=== PATIENT | female | born 1935 | race Caucasian/White ===

== ENCOUNTER → 2016-09-26 | Outpatient (CLI) | payer OTHER ==
[2016-06-06 17:00] VITALS: BP 180/80
--- NOTE | 2016-09-27 10:14 | MRI ---
STUDY: MRI OF THE BRAIN WITHOUT GADOLINIUM HISTORY: TIA and cerebral infarction without residual deficits. Headaches, dizziness, blurred visio n. Technique: Multiplanar multi-sequence MRI of the brain was obtained utilizing standard departmental protocol. Sagittal and axial T1, axial T2, FLAIR, diffusion (DWI/ADC) images through the brain were performed. Comparison: Brain MRI from June 06, 2016. Findings: The sulci, cisterns and ventricles are prominent consistent with diffuse volume loss. There are conf luent and scattered foci of T2 prolongation in the periventricular and subcortical white matter of b oth hemispheres. This is a nonspecific finding which likely represents microangiopathic change in a patient of this age. There appear to be old lacunar infarcts in the left insula, left periventricular taylor radiata and left basal ganglia. There is no evidence of acute territorial infarction, hemorrhage, mass, mass eff ect, or midline shift. There are no abnormal intra-axial or extra-axial fluid collections. The left frontal and parietal nadja holes are again noted. The major intracranial vascular flow voids appear intact. The vertebral arteries are codominent. The re is bilateral aphakia. IMPRESSION: 1. No evidence of acute intracranial abnormality. 2. Old lacunar infarcts in the left basal ganglia, insula, and periventricular taylor radiata. 3. Nonspecific white matter change and volume loss. Reported By:
== END | disposition home or self-care (01) ==
LOC: RAD 15:26
PROVIDERS: ATTEND Psychiatry & Neurology Neurology
DX: Z86.73 Personal history of transient ischemic attack (TIA), and cerebral infarction without residual deficits (principal); R42 Dizziness and giddiness
CPT/HCPCS: 70551

== ENCOUNTER → 2017-07-15 | Outpatient (CLI) | payer OTHER ==
[2016-06-06 17:00] VITALS: BP 180/80
--- NOTE | 2017-07-16 10:31 | MG ---
HISTORY: SCREENING Comparison: October 02, 2009 FINDINGS: Bilateral CC and MLO projections of the right and left breast were obtained. Scattered fibroglandula r tissue is seen to be present without significant interval change. No suspicious architectural dist ortion, mass or clustered microcalcifications can be observed to suggest malignancy. No skin thicken ing or nipple retraction is appreciated. No pathological lymphadenopathy can be identified. Benign- appearing calcifications are noted within the right and left breast. An electronic device projects ov er the lower medial left breast. IMPRESSION: NO RADIOGRAPHIC EVIDENCE OF MALIGNANCY. ACR CATEGORY 2 - benign findings. FOLLOW-UP EXAM 1 YEAR. Diagnostic CAD was utilized and reviewed. * 0 (ZERO) - ASSESSMENT INCOMPLETE; ADDITIONAL IMAGING IS NEEDED. * 1/ (ONE) - NEGATIVE. * 2/II (TWO) - BENIGN FINDINGS. * 3/III (THREE) - PROBABLY BENIGN FINDING; SHORT INTERVAL FOLLOW-UP SUGGESTED. * 4/IV (FOUR) - SUSPICIOUS ABNORMALITY; BIOPSY SHOULD BE CONSIDERED. * 5/V - HIGHLY SUSPICIOUS OF MALIGNANCY; BIOPSY SHOULD BE PERFORMED. A NEGATIVE X-RAY REPORT SHOULD NOT DELAY BIOPSY IF A DOMINANT OR CLINICALLY SUSPICIOUS MASS IS PRESENT; 4 TO 8 PERCENT OF CANCERS ARE NOT IDENTIFIED BY X-RAY. A NEGA TIVE REPORT MAY REINFORCE THE CLINICAL IMPRESSION. ADENOSIS AND DENSE BREASTS MAY OBSCURE AN UNDERLY ING NEOPLASM. Reported By:
== END ==
LOC: RAD 11:02
PROVIDERS: ATTEND Internal Medicine
DX: Z12.31 Encounter for screening mammogram for malignant neoplasm of breast (principal)
CPT/HCPCS: 77067

== ENCOUNTER 2018-03-02 21:13 | Inpatient (IN) ==
[2018-03-02] MEDS ORDERED: ZOFRAN INJ 4 MG VIAL IVP ONE (21:25)
[2018-03-02] MEDS ORDERED: DEMEROL INJ IVP ONE (21:26)
[2018-03-02] MEDS ORDERED: ZOFRAN INJ 4 MG VIAL ONE (21:28)
[2018-03-02] MEDS ORDERED: DEMEROL INJ ONE (21:28)
[2018-03-02 21:42] VITALS: BMI 24.3
--- NOTE | 2018-03-02 22:05 | CT ---
CT HEAD WITHOUT CONTRAST CLINICAL HISTORY: 82-year-old female status post fall with stability issues. COMPARISON: CT head 01/05/2018. TECHNIQUE: Multiple, non-contrasted axial CT images were obtained from the skull base to the cranial vertex. Coronal and sagittal reformats were performed. FINDINGS: There are no abnormal intra- or extra-axial fluid collections, midline shift, or mass effect. Osborne-white differentiation is normal. 'Empty sella'. 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 Global cortical involutional changes are present that are advanced for the patient's stated age. The ventricular system is enlarged but commensurate with the degree of sulcal prominence. Chronic lacunar infarctions bilateral basal ganglia and thalami. Chronic punctate infarctions within the bilateral davie. Chronic infarction with small volume encephalomalacia left taylor radiata with component of wallerian degeneration. Severe periventricular and supraventricular white matter hypodensity is present that is nonspecific in appearance, but most likely to represent microvascular ischemic changes. Atherosclerotic vascular calcification is present within the carotid siphons and distal vertebral arteries. The imaged paranasal sinuses, mastoid air cells, and tympanic spaces are clear. Bilateral lens implants. IMPRESSION: 1. No definite evidence of an acute intracranial process. If clinical concern persists for acute stroke and it would alter patient management, consider MRI/MRA brain. 2. Chronic lacunar infarctions bilateral basal ganglia and thalami with chronic infarction left taylor radiata and component of wallerian degeneration. Chronic punctate infarctions bilateral davie. 3. Severe microvascular white matter ischemic changes, with associated volume loss. Reported By:
--- NOTE | 2018-03-02 22:29 | RAD ---
HISTORY: 82-year-old female status post fall with right ankle pain. Study: Three views right ankle. Comparison: Right ankle radiographs 03/29/2014 Findings: Talar dome is intact. Minimally displaced lateral malleolar fracture with subtle cortical irregularity of the medial malleolus suggesting nondisplaced medial malleolar fracture with significant soft tissue edema about the ankle. The ankle mortise remains well aligned. No significant soft tissue swelling or injury can be seen. The visualized portions of the talus and calcaneus are unremarkable. Vascular calcifications are present. IMPRESSION: Nondisplaced lateral malleolar fracture with suspected medial malleolar fracture without dislocation. Significant surrounding soft tissue edema as expected. Reported By:
[2018-03-02 23:04] LABS: BASOPHILS % (AUTO) 0.5 % (0.2-1.0); EOSINOPHILS # (AUTO) 0.3 x10^3/uL (0.0-0.2); EOSINOPHILS % (AUTO) 3.3 % (0.9-2.9); HEMATOCRIT 33.5 % (36.0-47.0); HEMOGLOBIN 11.3 g/dL (12.0-16.0); LYMPHOCYTES # (AUTO) 2.2 X10^3/uL (1.3-2.9); LYMPHOCYTES % (AUTO) 26.5 % (21.0-51.0); MEAN CORPUSCULAR HEMOGLOBIN 31.2 pg (27.0-34.0); MEAN CORPUSCULAR HGB CONC 33.8 g/dL (33.0-35.0); MEAN CORPUSCULAR VOLUME 92.4 fL (80.0-100.0); MEAN PLATELET VOLUME 8.9 fL (7.4-11.0); MONOCYTES # (AUTO) 0.6 x10^3/uL (0.3-0.8); MONOCYTES % (AUTO) 7.3 % (0.0-13.0); NEUTROPHILS # (AUTO) 5.3 x10^3/uL (2.2-4.8); NEUTROPHILS % (AUTO) 62.4 % (42.0-75.0); PLATELET COUNT 176 X10^3/uL (150.0-450.0); RED BLOOD COUNT 3.63 X10^6/uL (3.5-5.4); RED CELL DISTRIBUTION WIDTH 13.5 % (11.6-16.5); WHITE BLOOD COUNT 8.5 X10^3/uL (3.6-10.0)
[2018-03-02 23:16] LABS: ALANINE AMINOTRANSFERASE 22 Units/L (12-78); ALBUMIN 3.5 g/dL (3.4-5.0); ALKALINE PHOSPHATASE 92 Units/L (46-116); ASPARTATE AMINO TRANSFERASE 18 Units/L (15-37); BLOOD UREA NITROGEN 27 mg/dL (7-18); CALCIUM 8.2 mg/dL (8.5-10.1); CARBON DIOXIDE 28.3 mmol/L (21-32); CHLORIDE 105 mmol/L (98-107); COR NA(FOR HYPERGLY) 144 mmol/L (136-145); CREATININE 1.17 mg/dL (0.55-1.02); SODIUM 143 mmol/L (136-145); TOTAL PROTEIN 7.2 g/dL (6.4-8.2); eGFR NON BLACK RACES 47 (>60)
--- NOTE | 2018-03-02 23:37 | RAD ---
HISTORY: 82-year-old female status post fall Study: Frontal view of the chest. Comparison: Chest radiograph 06/04/2016 Findings: Surgical and support devices are stable. The trachea is midline. The cardiac silhouette is unremarkable with low lung volumes and chronic prominence of the interstitium and perihilar lung markings. The lungs are clear without focal consolidation, effusion or pneumothorax. Soft tissues are unremarkable. Osseous structures are unremarkable. IMPRESSION: 1. No acute cardiopulmonary disease with findings consistent with COPD. Reported By:
--- NOTE | 2018-03-02 23:46 | DR.EXTPAIN ---
HPI Time seen Time Seen by Provider: 03/02/18 21:32 PCP Primary Care Physician: Complaint/Symptoms Chief Complaint:: FALL O/S 1530 TODAY. C/O RIGHT KNEE AND RIGHT ANKLE PAIN. NOTED EDEMA TO RIGHT KNEE, WITH SMALL YELLOW BRUISED BELOW KNEE. NOTED MODERATE AMOUNT OF EDEMA TO RIGHT ANKLE, WITH BRUISING TO RIGHT ANKLE. Source History Provided: Patient, Family Member and EMS Mode of arrival Mode of Arrival: EMS Timing Onset of Chief Complaint: 03/02/18 PMH PMH Past Medical History: Yes Past Medical History: Anemia, Arthritis, Coronary Artery Disease, CVA, Depression, Diabetes, Dyslipidemia, Headaches, Hypertension, Kidney Stones, [place], Renal Disease and Seizures Past Medical History Comment: HX OF SUBDURAL HEMATOMA Past Surgical History: Yes Surgical History: Angioplasty/Stents, CABG/Valve Surgery, Hysterectomy and Ortho Surgery Family History History of Family Medical Conditions: Yes Family Medical History: Diabetes Mellitus, Cancer, [place], Coronary Artery Disease, Heart Failure and Hypertension Social History Does patient currently use any type of tobacco product: No Have you used tobacco products in the last 12 months: No Type of Tobacco Use: None Does any household member use tobacco: No Alcohol Use: None Do you use any recreational Drugs:: No Lives Where: Home infectious screening Have you traveled outside the country in the last 6 months?: No Isolation: Standard PE Vital Signs Vitals: Temperature 97.1 F Pulse Rate [Left] 67 Pulse Rate 110 Respiratory Rate 22 Blood Pressure [Left Arm] 151/67 Blood Pressure [Right Arm] 180/80 Blood Pressure 246/110 O2 Sat by Pulse Oximetry 97 General Limitations: No Limitations and Language Barrier General Appearance: Alert and In No Apparent Distress Head Head Exam: Normal Inspection, Atraumatic and Normocephalic Eyes Eye exam: Normal Appearance, PERRL and EOMI ENT ENT Exam: Normal Exam, Normal Oropharynx and Normal External Ear Exam Neck Neck Exam: Normal Inspection, Full ROM and Trachea Midline Chest Chest Inspection: Normal Inspection and Symmetric Chest Wall Rise Respiratory Respiratory Exam: Normal Lung Sounds Bilat Respiratory Exam: Bilateral: Clear to Auscultation Cardiovascular Cardiovascular Exam: Regular Rate and Normal Rhythm Abdominal Exam Abdominal Exam: Normal Inspection, Normal Bowel Sounds and Soft Extremities Extremities Exam: Normal Inspection and Full ROM Upper Extremities Shoulder Exam: Normal Inspection and Full ROM Arm Exam: Normal Inspection and Full ROM Elbow Exam: Normal Inspection and Full ROM Forearm Exam: Normal Inspection and Full ROM Hand Exam: Normal Inspection and Full ROM Neuromotor Exam: Normal Exam and Wrist Extension Neurosensory Exam: Normal Exam and Radial Nerve Hand Tendon Exam: Flexor Digitorium Profundus (Location) Upper Ext. Vascular Exam: Capillary Refill and Radial Pulse Lower Extremities Hip/Pelvis Exam: Normal Inspection and Full ROM Upper Leg Exam: Normal Inspection and Full ROM Knee Exam: Normal Inspection, Tenderness and Swelling (right knee); negative Ecchymosis Lower Leg Exam: Normal Inspection and Full ROM Ankle Exam: Tenderness and Swelling Neurovascular/Tendon Exam: Normal Capillary Refill Back Back Exam: Normal Inspection and Full ROM Neurological Neurological Exam: Alert, Oriented X3 and CN II-XII Intact Psychiatric Psychiatric Exam: Normal Affect Skin Skin Exam: Warm, Dry, Intact and Normal Color COURSE Treatment Treatment: Demerol 12.5mg IV Consultation Called: 00:30 Consultation Comments: Dr. Lipscomb agreed to admit for pain management. ROR Labs Reviewed Laboratory Results Reviewed?: Yes Result Diagrams: 03/02/18 22:45 03/02/18 22:45 Laboratory: WBC 8.5 X10^3/uL (3.6-10.0) 03/02/18 22:45 RBC 3.63 X10^6/uL (3.5-5.4) 03/02/18 22:45 Hgb 11.3 g/dL (12.0-16.0) L 03/02/18 22:45 Hct 33.5 % (36.0-47.0) L 03/02/18 22:45 MCV 92.4 fL (80.0-100.0) 03/02/18 22:45 MCH 31.2 pg (27.0-34.0) 03/02/18 22:45 MCHC 33.8 g/dL (33.0-35.0) 03/02/18 22:45 RDW 13.5 % (11.6-16.5) 03/02/18 22:45 Plt Count 176 X10^3/uL (150.0-450.0) 03/02/18 22:45 MPV 8.9 fL (7.4-11.0) 03/02/18 22:45 Neut % (Auto) 62.4 % (42.0-75.0) 03/02/18 22:45 Lymph % (Auto) 26.5 % (21.0-51.0) 03/02/18 22:45 [place] % (Auto) 7.3 % (0.0-13.0) 03/02/18 22:45 Eos % (Auto) 3.3 % (0.9-2.9) H 03/02/18 22:45 Baso % (Auto) 0.5 % (0.2-1.0) 03/02/18 22:45 Neut # (Auto) 5.3 x10^3/uL (2.2-4.8) H 03/02/18 22:45 Lymph # (Auto) 2.2 X10^3/uL (1.3-2.9) 03/02/18 22:45 [place] # (Auto) 0.6 x10^3/uL (0.3-0.8) 03/02/18 22:45 Eos # (Auto) 0.3 x10^3/uL (0.0-0.2) H 03/02/18 22:45 Baso # (Auto) 0.0 X10^3/uL (0.0-0.1) 03/02/18 22:45 Absolute Nucleated RBC 0.0 /100WBC 03/02/18 22:45 Sodium 143 mmol/L (136-145) 03/02/18 22:45 Corrected Sodium 144 mmol/L (136-145) 03/02/18 22:45 Potassium 3.6 mmol/L (3.5-5.1) 03/02/18 22:45 Chloride 105 mmol/L (98-107) 03/02/18 22:45 Carbon Dioxide 28.3 mmol/L (21-32) 03/02/18 22:45 BUN 27 mg/dL (7-18) H 03/02/18 22:45 Creatinine 1.17 mg/dL (0.55-1.02) H 03/02/18 22:45 Est GFR (MDRD) Af Amer 57 (>60) L 03/02/18 22:45 Est GFR (MDRD) Non-Af 47 (>60) L 03/02/18 22:45 Glucose 161 mg/dL (65-99) H 03/02/18 22:45 Calcium 8.2 mg/dL (8.5-10.1) L 03/02/18 22:45 Corrected Calcium TNP 03/02/18 22:45 Total Bilirubin 0.20 mg/dL (0.2-1.0) 03/02/18 22:45 AST 18 Units/L (15-37) 03/02/18 22:45 ALT 22 Units/L (12-78) 03/02/18 22:45 Alkaline Phosphatase 92 Units/L (46-116) 03/02/18 22:45 Total Protein 7.2 g/dL (6.4-8.2) 03/02/18 22:45 Albumin 3.5 g/dL (3.4-5.0) 03/02/18 22:45 Globulin 3.7 g/dL (2.5-4.5) 03/02/18 22:45 Albumin/Globulin Ratio 0.9 Ratio (1.1-2.1) L 03/02/18 22:45 Other Results Comments: Chest: No acute cardiopulmonary disease with findings consistent with COPD. Right Knee: Severe diffuse degenerative change without ra diographic evidence of fracture or malalignment with chronic moderate suprapatella joint effusion. Nondisplaced lateral malleolar fracture with suspected medial malleolar fracture without dislocation. Significant surrounding soft tissue edema. XRAY XRAY Interpreted by: Radiologist XRAY Findings: CT Brain:No definite evidence of an acute intracranial process. Procedures Procedure Comments Procedures: Right lower extremity with splint of fractured ankle. ADDITIONAL NOTES Additional Notes Additional Notes: Patient admitted for pain management
--- NOTE | 2018-03-02 23:51 | RAD ---
KNEE RADIOGRAPHS CLINICAL HISTORY: 82-year-old female status post fall. COMPARISON: Right knee radiographs 12/05/2013. FINDINGS: Frontal lateral views of the right knee demonstrate no acute fracture or malalignment. Chronic moderate suprapatellar joint effusion with diffuse tricompartmental degenerative changes. Loss of the joint space bilaterally with tibial plateau sclerosis. The mineralization is normal. There is no aggressive bone lesion or abnormal periosteal reaction. There is no soft tissue calcification or gas. Significant vascular calcifications. IMPRESSION: Severe diffuse degenerative change without radiographic evidence of fracture or malalignment with chronic moderate suprapatellar joint effusion. Reported By:
[2018-03-03] MEDS ORDERED: ZOFRAN INJ 4 MG VIAL IVP PRN (00:43)
[2018-03-03] MEDS: OXYBUTYNIN CHLORIDE ER PO SCH ×2 (01:56→20:46)
[2018-03-03] MEDS: EFFEXOR XR 150 MG CAP PO SCH ×2 (01:56→20:46)
[2018-03-03] MEDS: NS 1000 ML 1,000 ML IV SCH ×3 (01:56→17:05)
[2018-03-03 05:52] LABS: ALANINE AMINOTRANSFERASE 20 Units/L (12-78); ALBUMIN 3.1 g/dL (3.4-5.0); ALKALINE PHOSPHATASE 86 Units/L (46-116); ASPARTATE AMINO TRANSFERASE 20 Units/L (15-37); BLOOD UREA NITROGEN 23 mg/dL (7-18); CALCIUM 7.9 mg/dL (8.5-10.1); CARBON DIOXIDE 24.5 mmol/L (21-32); CHLORIDE 106 mmol/L (98-107); COR CA(FOR HYPOALB) 8.6 mg/dL (8.5-10.1); COR NA(FOR HYPERGLY) 142 mmol/L (136-145); CREATININE 0.98 mg/dL (0.55-1.02); SODIUM 141 mmol/L (136-145); TOTAL PROTEIN 6.6 g/dL (6.4-8.2); eGFR NON BLACK RACES 58 (>60)
[2018-03-03 06:14] LABS: BASOPHILS % (AUTO) 0.6 % (0.2-1.0); EOSINOPHILS # (AUTO) 0.1 x10^3/uL (0.0-0.2); EOSINOPHILS % (AUTO) 1.9 % (0.9-2.9); HEMATOCRIT 30.4 % (36.0-47.0); HEMOGLOBIN 10.5 g/dL (12.0-16.0); LYMPHOCYTES # (AUTO) 2.1 X10^3/uL (1.3-2.9); LYMPHOCYTES % (AUTO) 27.6 % (21.0-51.0); MEAN CORPUSCULAR HEMOGLOBIN 31.9 pg (27.0-34.0); MEAN CORPUSCULAR HGB CONC 34.6 g/dL (33.0-35.0); MEAN CORPUSCULAR VOLUME 92.3 fL (80.0-100.0); MEAN PLATELET VOLUME 9.4 fL (7.4-11.0); MONOCYTES # (AUTO) 0.6 x10^3/uL (0.3-0.8); MONOCYTES % (AUTO) 8.6 % (0.0-13.0); NEUTROPHILS # (AUTO) 4.6 x10^3/uL (2.2-4.8); NEUTROPHILS % (AUTO) 61.3 % (42.0-75.0); PLATELET COUNT 149 X10^3/uL (150.0-450.0); RED CELL DISTRIBUTION WIDTH 13.2 % (11.6-16.5); WHITE BLOOD COUNT 7.6 X10^3/uL (3.6-10.0)
[2018-03-03] MEDS: DEMEROL INJ IVP PRN ×3 (07:56→17:41)
[2018-03-03] MEDS: SYNTHROID 50 mcg TAB PO SCH (08:00)
[2018-03-03] MEDS: HumuLIN R SUBCUT PRN ×2 (14:22→17:42)
[2018-03-03] MEDS: PERCOCET TAB 5/325 MG PO PRN (14:22)
--- NOTE | 2018-03-03 16:17 | DR.H&P ---
H&P - History & Physical for Day of: H&P Date: 03/02/18 - Chief Complaint Chief Complaint: FALL, RT ANKLE PAIN, KNEE PAIN - History of Present Illness History of Present Illness: 82 EF ER ADMISSION AFTER PRESENTING WITH CO FALL WITH KNEE PAIN, RIGHT ANKLE PAIN. PT HAD XRAYS IN ER REVEALING NEW RIGHT ANKLE FRACTURE. PT HAS PMH OF HTN, OA, HX VASCULAR DEMENTIA, GERD, RENAL DISEASE, CAD. PT ADMITTED FOR PAIN CONTROL, ORTHO CONSULT - Past Medical History Past Medical History: [place], Coronary Artery Disease, Hypertension, Dyslipidemia, Diabetes, Renal Disease, Depression, Anemia, CVA, Seizures, Arthritis, Kidney Stones, Headaches Additional Medical History: Paroxysmal Atrial Fibrillation, TIA, Bronchitis, Pancreatitis, Urinary Tract Infections, Muscle Weakness, Back Pain, Previous Blood Transfusion, Skin Cancer Face - Past Surgical History Surgical History: Angioplasty/Stents, CABG/Valve Surgery, Hysterectomy, Ortho Surgery Additional Surgical History: Hernia Repair, Cataract Removal, Left Sided SHEYLA Holes S/P Subdural Hematoma Evacuation (09/29/13), Skin Cancer Removal - Family History Family Medical History: Diabetes Mellitus, Cancer, [place], Coronary Artery Disease, Heart Failure, Hypertension - Social History Does patient currently use any type of tobacco product: No Have you used tobacco products in the last 12 months: No Type of Tobacco Use: None Does any household member use tobacco: No Alcohol Use: None Drug Use: None - Medications Home Medications: atorvastatin [From Lipitor] Allergy (Verified 03/02/18 21:25) codeine Allergy (Verified 03/02/18 21:25) duloxetine [From Cymbalta] Allergy (Verified 03/02/18 21:25) sulfamethoxazole [From Bactrim] Allergy (Verified 03/02/18 21:25) trimethoprim [From Bactrim] Allergy (Verified 03/02/18 21:25) CI PIGMENT BLUE 63 Allergy (Uncoded 03/02/18 21:25) CONTINUE taking the following medications clopidogrel 150 mg PO HS 03/03/18 [History] diazepam 2 mg PO HS 03/03/18 [History] levothyroxine 50 mcg PO DAILY 03/03/18 [History] losartan 100 mg PO HS 03/03/18 [History] - Review of Systems Constitutional: Weakness Eyes: No Symptoms Reported ENT: No Symptoms Reported Respiratory: No Symptoms Reported Cardiovascular: No Symptoms Reported, Edema Gastrointestinal: Nausea Genitourinary: No Symptoms Reported Musculoskeletal: Leg Pain, Foot Pain Skin: Bruising Neurological: Weakness - Physical Exam Vital Signs: Temperature 98.5 F Pulse Rate [Left] 74 Pulse Rate 110 Respiratory Rate 20 Blood Pressure [Left Arm] 199/89 Blood Pressure [Right Arm] 136/63 Blood Pressure 246/110 O2 Sat by Pulse Oximetry 99 Oriented: Person Eyes: Normal Ear: Normal Nose: Normal Throat: Normal Respiratory: RLL Diminished, LLL Diminished Cardiovascular: Edema. negative: Bradycardia Auscultation: Bowel Sounds: Normal Palpation: Normal Tenderness: Normal Skin: Bruising Musculoskeletal: Right, Knee, Leg, Ankle, Foot Psychiatric: Anxiety Affect: Anxious Speech Pattern: Clear, Appropriate - Assessment/Plan (1) Fracture of right ankle Status: Acute Plan: ADMIT, PAIN CONTROL. ORTHO CONSULT, VERIFY HOME MEDICATION. AM LABS, I & OS. FALL PRECAUTIONS, BED REST (2) CAD (coronary artery disease) Status: Acute (3) Hypertension Status: Acute (4) Arthritis Status: Chronic - Allergies Allergies/Adverse Reactions: Allergies Allergy/AdvReac Type Severity Reaction Status Date / Time atorvastatin [From Lipitor] Allergy Verified 03/02/18 21:25 codeine Allergy Verified 03/02/18 21:25 duloxetine [From Cymbalta] Allergy Verified 03/02/18 21:25 sulfamethoxazole Allergy Verified 03/02/18 21:25 [From Bactrim] trimethoprim [From Bactrim] Allergy Verified 03/02/18 21:25 CI PIGMENT BLUE 63 Allergy Uncoded 03/02/18 21:25
--- NOTE | 2018-03-03 20:22 | CT ---
CT OF THE RIGHT ANKLE WITHOUT CONTRAST Clinical indication: Fracture of right ankle Comparison: Radiography 03/02/2018 Procedure: Axial images of the right ankle were obtained. Sagittal coronal reformats were performed. Dose reduction techniques including Automated Exposure Control (AEC) and adjustment of mA and kV were utlized. Findings: Comminuted fracture of the distal fibula with more subtle chip fracture of the anteromedial distal tibia. Talar dome appears to be intact. Heterogeneous calcification can be seen throughout the joint spaces of the ankle suggestive of CPPD. Diffuse joint space loss and osteophytosis. Joint effusion is present. Impression: 1. Medial and lateral malleolar fractures as above with joint effusion. 2. Findings of CPPD and osteoarthritis. Reported By:
[2018-03-03] MEDS: COLACE CAP 100 MG PO SCH (20:44)
[2018-03-03] MEDS: PLAVIX PO SCH (20:46)
[2018-03-03] MEDS: ASPIRIN 81 MG CHEWTAB PO SCH (20:46)
[2018-03-03] MEDS: CORDARONE TAB 200 MG PO SCH (20:46)
[2018-03-03] MEDS: LIPITOR TAB 20 MG PO SCH (20:46)
[2018-03-03] MEDS: COZAAR PO SCH (20:46)
[2018-03-03] MEDS: SNACK - Diabetic Appropriate PO SCH (20:47)
[2018-03-03] MEDS ORDERED: OXYBUTYNIN CHLORIDE 5 MG PO SCH (21:00)
[2018-03-03] MEDS ORDERED: VENLAFAXINE HCL PO SCH (21:00)
[2018-03-04] MEDS: PERCOCET TAB 5/325 MG PO PRN ×3 (01:07→23:08)
[2018-03-04] MEDS: NS 1000 ML 1,000 ML IV SCH ×3 (04:30→17:17)
[2018-03-04 05:19] LABS: BASOPHILS % (AUTO) 0.4 % (0.2-1.0); EOSINOPHILS # (AUTO) 0.1 x10^3/uL (0.0-0.2); EOSINOPHILS % (AUTO) 0.9 % (0.9-2.9); HEMOGLOBIN 10.2 g/dL (12.0-16.0); LYMPHOCYTES # (AUTO) 2.3 X10^3/uL (1.3-2.9); MEAN CORPUSCULAR HEMOGLOBIN 31.1 pg (27.0-34.0); MEAN CORPUSCULAR HGB CONC 33.9 g/dL (33.0-35.0); MEAN CORPUSCULAR VOLUME 91.6 fL (80.0-100.0); MEAN PLATELET VOLUME 9.5 fL (7.4-11.0); MONOCYTES # (AUTO) 1.2 x10^3/uL (0.3-0.8); MONOCYTES % (AUTO) 12.9 % (0.0-13.0); NEUTROPHILS # (AUTO) 5.7 x10^3/uL (2.2-4.8); NEUTROPHILS % (AUTO) 60.8 % (42.0-75.0); PLATELET COUNT 155 X10^3/uL (150.0-450.0); RED BLOOD COUNT 3.28 X10^6/uL (3.5-5.4); RED CELL DISTRIBUTION WIDTH 13.4 % (11.6-16.5); WHITE BLOOD COUNT 9.4 X10^3/uL (3.6-10.0)
[2018-03-04 05:45] LABS: ALANINE AMINOTRANSFERASE 20 Units/L (12-78); ALBUMIN 2.8 g/dL (3.4-5.0); ALKALINE PHOSPHATASE 76 Units/L (46-116); ASPARTATE AMINO TRANSFERASE 18 Units/L (15-37); BLOOD UREA NITROGEN 15 mg/dL (7-18); CALCIUM 7.8 mg/dL (8.5-10.1); CARBON DIOXIDE 26.1 mmol/L (21-32); CHLORIDE 103 mmol/L (98-107); COR CA(FOR HYPOALB) 8.8 mg/dL (8.5-10.1); COR NA(FOR HYPERGLY) 140 mmol/L (136-145); CREATININE 0.85 mg/dL (0.55-1.02); SODIUM 139 mmol/L (136-145); TOTAL PROTEIN 6.4 g/dL (6.4-8.2); eGFR NON BLACK RACES > 60 (>60)
[2018-03-04] MEDS ORDERED: K-DUR TAB 20 MEQ PO PRN (06:03)
[2018-03-04] MEDS ORDERED: POTASSIUM CHLORIDE LIQ 20 MEQ UDC PO PRN (06:03)
[2018-03-04] MEDS ORDERED: KLOR-CON PO PRN (06:03)
[2018-03-04] MEDS ORDERED: MICRO K EXTEN CAP 10 MEQ PO PRN (06:03)
[2018-03-04] MEDS ORDERED: POTASSIUM CHL 60 MEQ/NS 0.45% 500 ML IV PRN (06:03)
[2018-03-04] MEDS ORDERED: POTASSIUM CHL 40 MEQ/NS 0.45% 500 ML IV PRN (06:03)
[2018-03-04] MEDS: SYNTHROID 50 mcg TAB PO SCH (09:17)
[2018-03-04] MEDS: K-RIDER 10 MEQ/NS 100 ML 10 MEQ/100 ML BAG IV PRN ×4 (15:13→19:30)
[2018-03-04] MEDS: MAGNESIUM SULFATE 1 GRAM/100 mL PREMIX 1 GM/100 ML BAG IV PRN ×2 (15:14→17:00)
--- NOTE | 2018-03-04 17:01 | PCM.PROG ---
Progress Note - Progress Note for Day of Date of Exam: 03/03/18 - Subjective Subjective: 82 WF ER ADMISSION ON 03/02 WITH RIGHT ANKLE FRACTURE FOLLOWING A FALL AT HOME. DR PLUMMER CONSULTING. STARTED PO PERCOCET DUE TO UNCONTROLLED PAIN WITH IV NARCOTIC ANALGESIC. PT FAMILY ASKING FOR CONSERVATIVE MEASURES, "WANT TO AVOID ANY SURGERY" CASE MANAGEMENT CONSULT FOR HH WHEN PT IS DISCHARGED - Past Medical Family Social History Past Med/Fam/Surg Hx: No changes since H&P Allergies: Allergies atorvastatin [From Lipitor] Allergy (Verified 03/02/18 21:25) codeine Allergy (Verified 03/02/18 21:25) duloxetine [From Cymbalta] Allergy (Verified 03/02/18 21:25) sulfamethoxazole [From Bactrim] Allergy (Verified 03/02/18 21:25) trimethoprim [From Bactrim] Allergy (Verified 03/02/18 21:25) CI PIGMENT BLUE 63 Allergy (Uncoded 03/02/18 21:25) - Review of Systems ROS: No change since H&P - Vital Signs and I&O's Vital Signs: Temperature 98.2 F Pulse Rate [Left] 71 Pulse Rate 110 Respiratory Rate 18 Blood Pressure [Left Arm] 151/67 Blood Pressure [Right Arm] 198/93 Blood Pressure 246/110 O2 Sat by Pulse Oximetry 98 Intake and Output: Intake & Output 03/02/18 03/03/18 03/04/18 03/05/18 11:59 11:59 11:59 11:59 Intake Total 439 / 439 2223 / 2223 290 / 290 Balance 439 / 439 2223 / 2223 290 / 290 - Physical Exam Oriented: Person Eyes: Normal Ear: Normal Nose: Normal Throat: Normal Respiratory: Diminished Cardiovascular: Edema. negative: Bradycardia Auscultation: Bowel Sounds: Normal Tenderness: Normal Skin: Bruising Musculoskeletal: Right, Knee, Leg, Ankle, Foot Psychiatric: Anxiety Affect: Anxious Speech Pattern: Clear, Appropriate - Laboratory and Diagnostics Result Diagrams: 03/04/18 04:22 03/04/18 04:22 Labs: Laboratory WBC 9.4 X10^3/uL (3.6-10.0) 03/04/18 04:22 RBC 3.28 X10^6/uL (3.5-5.4) L 03/04/18 04:22 Hgb 10.2 g/dL (12.0-16.0) L 03/04/18 04:22 Hct 30.0 % (36.0-47.0) L 03/04/18 04:22 MCV 91.6 fL (80.0-100.0) 03/04/18 04:22 MCH 31.1 pg (27.0-34.0) 03/04/18 04:22 MCHC 33.9 g/dL (33.0-35.0) 03/04/18 04:22 RDW 13.4 % (11.6-16.5) 03/04/18 04:22 Plt Count 155 X10^3/uL (150.0-450.0) 03/04/18 04:22 MPV 9.5 fL (7.4-11.0) 03/04/18 04:22 Neut % (Auto) 60.8 % (42.0-75.0) 03/04/18 04:22 Lymph % (Auto) 25.0 % (21.0-51.0) 03/04/18 04:22 [place] % (Auto) 12.9 % (0.0-13.0) 03/04/18 04:22 Eos % (Auto) 0.9 % (0.9-2.9) 03/04/18 04:22 Baso % (Auto) 0.4 % (0.2-1.0) 03/04/18 04:22 Neut # (Auto) 5.7 x10^3/uL (2.2-4.8) H 03/04/18 04:22 Lymph # (Auto) 2.3 X10^3/uL (1.3-2.9) 03/04/18 04:22 [place] # (Auto) 1.2 x10^3/uL (0.3-0.8) H 03/04/18 04:22 Eos # (Auto) 0.1 x10^3/uL (0.0-0.2) 03/04/18 04:22 Baso # (Auto) 0.0 X10^3/uL (0.0-0.1) 03/04/18 04:22 Absolute Nucleated RBC 0.0 /100WBC 03/04/18 04:22 Sodium 139 mmol/L (136-145) 03/04/18 04:22 Corrected Sodium 140 mmol/L (136-145) 03/04/18 04:22 Potassium 3.3 mmol/L (3.5-5.1) L 03/04/18 04:22 Chloride 103 mmol/L (98-107) 03/04/18 04:22 Carbon Dioxide 26.1 mmol/L (21-32) 03/04/18 04:22 BUN 15 mg/dL (7-18) 03/04/18 04:22 Creatinine 0.85 mg/dL (0.55-1.02) 03/04/18 04:22 Est GFR (MDRD) Af Amer > 60 (>60) 03/04/18 04:22 Est GFR (MDRD) Non-Af > 60 (>60) 03/04/18 04:22 Glucose 148 mg/dL (65-99) H 03/04/18 04:22 POC Glucose (mg/dL) 143 mg/dL (65-99) H 03/04/18 11:40 Calcium 7.8 mg/dL (8.5-10.1) L 03/04/18 04:22 Corrected Calcium 8.8 mg/dL (8.5-10.1) 03/04/18 04:22 Magnesium 1.5 mg/dL (1.7-2.9) L 03/04/18 04:22 Total Bilirubin 0.60 mg/dL (0.2-1.0) 03/04/18 04:22 AST 18 Units/L (15-37) 03/04/18 04:22 ALT 20 Units/L (12-78) 03/04/18 04:22 Alkaline Phosphatase 76 Units/L (46-116) 03/04/18 04:22 Total Protein 6.4 g/dL (6.4-8.2) 03/04/18 04:22 Albumin 2.8 g/dL (3.4-5.0) L 03/04/18 04:22 Globulin 3.6 g/dL (2.5-4.5) 03/04/18 04:22 Albumin/Globulin Ratio 0.8 Ratio (1.1-2.1) L 03/04/18 04:22 - Plan (1) Fracture of right ankle Status: Acute Plan: PAIN CONTROL. ORTHO CONSULT, BP CONTROL. AM LABS, I & OS. FALL PRECAUTI ONS, BED REST (2) CAD (coronary artery disease) Status: Acute (3) Hypertension Status: Acute (4) Arthritis Status: Chronic
--- NOTE | 2018-03-04 17:02 | PCM.PROG ---
Progress Note - Progress Note for Day of Date of Exam: 03/04/18 - Subjective Subjective: 82 WF ER ADMISSION ON 03/02 WITH RIGHT ANKLE FRACTURE FOLLOWING A FALL AT HOME. DR PLUMMER CONSULTING. STARTED PO PERCOCET DUE TO UNCONTROLLED PAIN WITH IV NARCOTIC ANALGESIC, WHICH IS CONTROLLIN PAIN. PT FAMILY ASKING FOR CONSERVATIVE MEASURES, "WANT TO AVOID ANY SURGERY" DR PLUMMER PLACED IN ORTHO BOOT TO RLE AND NO WEIGHT BEARING. CASE MANAGEMENT CONSULT FOR WHEN PT IS DISCHARGED - Past Medical Family Social History Past Med/Fam/Surg Hx: No changes since H&P Allergies: Allergies atorvastatin [From Lipitor] Allergy (Verified 03/02/18 21:25) codeine Allergy (Verified 03/02/18 21:25) duloxetine [From Cymbalta] Allergy (Verified 03/02/18 21:25) sulfamethoxazole [From Bactrim] Allergy (Verified 03/02/18 21:25) trimethoprim [From Bactrim] Allergy (Verified 03/02/18 21:25) CI PIGMENT BLUE 63 Allergy (Uncoded 03/02/18 21:25) - Review of Systems ROS: No change since H&P - Vital Signs and I&O's Vital Signs: Temperature 98.2 F Pulse Rate [Left] 71 Pulse Rate 110 Respiratory Rate 18 Blood Pressure [Left Arm] 151/67 Blood Pressure [Right Arm] 198/93 Blood Pressure 246/110 O2 Sat by Pulse Oximetry 98 Intake and Output: Intake & Output 03/02/18 03/03/18 03/04/18 03/05/18 11:59 11:59 11:59 11:59 Intake Total 439 / 439 2223 / 2223 290 / 290 Balance 439 / 439 2223 / 2223 290 / 290 - Physical Exam Oriented: Person Eyes: Normal Ear: Normal Nose: Normal Throat: Normal Respiratory: Diminished Cardiovascular: Edema. negative: Bradycardia Auscultation: Bowel Sounds: Normal Tenderness: Normal Skin: Bruising Musculoskeletal: Right, Knee, Leg, Ankle, Foot Psychiatric: Anxiety Affect: Anxious Speech Pattern: Clear, Appropriate - Laboratory and Diagnostics Result Diagrams: 03/04/18 04:22 03/04/18 04:22 Labs: Laboratory WBC 9.4 X10^3/uL (3.6-10.0) 03/04/18 04:22 RBC 3.28 X10^6/uL (3.5-5.4) L 03/04/18 04:22 Hgb 10.2 g/dL (12.0-16.0) L 03/04/18 04:22 Hct 30.0 % (36.0-47.0) L 03/04/18 04:22 MCV 91.6 fL (80.0-100.0) 03/04/18 04:22 MCH 31.1 pg (27.0-34.0) 03/04/18 04:22 MCHC 33.9 g/dL (33.0-35.0) 03/04/18 04:22 RDW 13.4 % (11.6-16.5) 03/04/18 04:22 Plt Count 155 X10^3/uL (150.0-450.0) 03/04/18 04:22 MPV 9.5 fL (7.4-11.0) 03/04/18 04:22 Neut % (Auto) 60.8 % (42.0-75.0) 03/04/18 04:22 Lymph % (Auto) 25.0 % (21.0-51.0) 03/04/18 04:22 [place] % (Auto) 12.9 % (0.0-13.0) 03/04/18 04:22 Eos % (Auto) 0.9 % (0.9-2.9) 03/04/18 04:22 Baso % (Auto) 0.4 % (0.2-1.0) 03/04/18 04:22 Neut # (Auto) 5.7 x10^3/uL (2.2-4.8) H 03/04/18 04:22 Lymph # (Auto) 2.3 X10^3/uL (1.3-2.9) 03/04/18 04:22 [place] # (Auto) 1.2 x10^3/uL (0.3-0.8) H 03/04/18 04:22 Eos # (Auto) 0.1 x10^3/uL (0.0-0.2) 03/04/18 04:22 Baso # (Auto) 0.0 X10^3/uL (0.0-0.1) 03/04/18 04:22 Absolute Nucleated RBC 0.0 /100WBC 03/04/18 04:22 Sodium 139 mmol/L (136-145) 03/04/18 04:22 Corrected Sodium 140 mmol/L (136-145) 03/04/18 04:22 Potassium 3.3 mmol/L (3.5-5.1) L 03/04/18 04:22 Chloride 103 mmol/L (98-107) 03/04/18 04:22 Carbon Dioxide 26.1 mmol/L (21-32) 03/04/18 04:22 BUN 15 mg/dL (7-18) 03/04/18 04:22 Creatinine 0.85 mg/dL (0.55-1.02) 03/04/18 04:22 Est GFR (MDRD) Af Amer > 60 (>60) 03/04/18 04:22 Est GFR (MDRD) Non-Af > 60 (>60) 03/04/18 04:22 Glucose 148 mg/dL (65-99) H 03/04/18 04:22 POC Glucose (mg/dL) 143 mg/dL (65-99) H 03/04/18 11:40 Calcium 7.8 mg/dL (8.5-10.1) L 03/04/18 04:22 Corrected Calcium 8.8 mg/dL (8.5-10.1) 03/04/18 04:22 Magnesium 1.5 mg/dL (1.7-2.9) L 03/04/18 04:22 Total Bilirubin 0.60 mg/dL (0.2-1.0) 03/04/18 04:22 AST 18 Units/L (15-37) 03/04/18 04:22 ALT 20 Units/L (12-78) 03/04/18 04:22 Alkaline Phosphatase 76 Units/L (46-116) 03/04/18 04:22 Total Protein 6.4 g/dL (6.4-8.2) 03/04/18 04:22 Albumin 2.8 g/dL (3.4-5.0) L 03/04/18 04:22 Globulin 3.6 g/dL (2.5-4.5) 03/04/18 04:22 Albumin/Globulin Ratio 0.8 Ratio (1.1-2.1) L 03/04/18 04:22 - Plan (1) Fracture of right ankle Status: Acute Plan: PAIN CONTROL. ORTHO CONSULT, BP CONTROL. AM LABS, I & OS. FALL PRECAUTIONS, BED REST (2) CAD (coronary artery disease) Status: Acute (3) Hypertension Status: Acute (4) Arthritis Status: Chronic
[2018-03-04] MEDS ORDERED: TYLENOL 325 MG TAB PO PRN (18:00)
[2018-03-04] MEDS: SNACK - Diabetic Appropriate PO SCH (21:36)
[2018-03-04] MEDS: COLACE CAP 100 MG PO SCH (21:37)
[2018-03-04] MEDS: LIPITOR TAB 20 MG PO SCH (21:37)
[2018-03-04] MEDS: PLAVIX PO SCH (21:37)
[2018-03-04] MEDS: COZAAR PO SCH (21:37)
[2018-03-04] MEDS: EFFEXOR XR 150 MG CAP PO SCH (21:39)
[2018-03-04] MEDS: CORDARONE TAB 200 MG PO SCH (21:39)
[2018-03-04] MEDS: ASPIRIN 81 MG CHEWTAB PO SCH (21:39)
[2018-03-04] MEDS: OXYBUTYNIN CHLORIDE ER PO SCH (21:40)
[2018-03-04 23:01] LABS: BILIRUBIN,URINE NEGATIVE (NEGATIVE); BLOOD/HEMOGLOBIN,URINE 4+ (NEGATIVE); GLUCOSE, URINE NEGATIVE (NEGATIVE); KETONES,URINE NEGATIVE (NEGATIVE); LEUKOCYTE ESTERASE ,URINE 2+ (NEGATIVE); NITRITES,URINE NEGATIVE (NEGATIVE); PROTEIN,URINE 2+ (NEGATIVE); UROBILINOGEN,URINE NORMAL (NORMAL)
[2018-03-04 23:20] LABS: APPEARANCE,URINE CLOUDY (CLEAR); COLOR,URINE PALE YELLOW (YELLOW)
[2018-03-04 23:21] LABS: AMORPHOUS SEDIMENT,UR 1+ /HPF (NEGATIVE); BACTERIA,URINE TRACE /HPF (NEGATIVE); SQUAMOUS EPITHELIAL CELL,UR FEW /HPF (NEGATIVE)
[2018-03-05 05:23] LABS: BASOPHILS % (AUTO) 0.4 % (0.2-1.0); EOSINOPHILS # (AUTO) 0.2 x10^3/uL (0.0-0.2); EOSINOPHILS % (AUTO) 2.2 % (0.9-2.9); HEMATOCRIT 27.9 % (36.0-47.0); HEMOGLOBIN 9.5 g/dL (12.0-16.0); LYMPHOCYTES % (AUTO) 24.2 % (21.0-51.0); MEAN CORPUSCULAR HEMOGLOBIN 31.3 pg (27.0-34.0); MEAN CORPUSCULAR VOLUME 92.1 fL (80.0-100.0); MEAN PLATELET VOLUME 9.5 fL (7.4-11.0); MONOCYTES # (AUTO) 0.8 x10^3/uL (0.3-0.8); MONOCYTES % (AUTO) 9.5 % (0.0-13.0); NEUTROPHILS # (AUTO) 5.3 x10^3/uL (2.2-4.8); NEUTROPHILS % (AUTO) 63.7 % (42.0-75.0); PLATELET COUNT 148 X10^3/uL (150.0-450.0); RED BLOOD COUNT 3.03 X10^6/uL (3.5-5.4); RED CELL DISTRIBUTION WIDTH 13.1 % (11.6-16.5); WHITE BLOOD COUNT 8.3 X10^3/uL (3.6-10.0)
[2018-03-05 05:35] LABS: ALANINE AMINOTRANSFERASE 18 Units/L (12-78); ALBUMIN 2.5 g/dL (3.4-5.0); ALKALINE PHOSPHATASE 70 Units/L (46-116); ASPARTATE AMINO TRANSFERASE 17 Units/L (15-37); BLOOD UREA NITROGEN 18 mg/dL (7-18); CALCIUM 7.8 mg/dL (8.5-10.1); CARBON DIOXIDE 23.3 mmol/L (21-32); CHLORIDE 105 mmol/L (98-107); COR NA(FOR HYPERGLY) 139 mmol/L (136-145); CREATININE 1.01 mg/dL (0.55-1.02); SODIUM 138 mmol/L (136-145); TOTAL PROTEIN 6.1 g/dL (6.4-8.2); eGFR NON BLACK RACES 56 (>60)
[2018-03-05] MEDS: NS 1000 ML 1,000 ML IV SCH ×2 (06:16→18:42)
[2018-03-05] MEDS: SYNTHROID 50 mcg TAB PO SCH (08:35)
--- NOTE | 2018-03-05 09:27 | RAD ---
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 There are mildly increased interstitial lung markings. There is a right shoulder prosthesis. There is no edema or effusion or lung consolidation. Impression: No acute cardiopulmonary disease Reported By:
[2018-03-05] MEDS: ROCEPHIN VIAL 1 GRAM IVP SCH (09:45)
--- NOTE | 2018-03-05 15:27 | RAD ---
History: Right hip pain after fall Study: AP pelvis Findings: There is mild deformity of the right pubic rami apparently from old fracture. The right hip is unremarkable. The ileum is intact. Impression: Old healed right pubic rami fractures Reported By:
[2018-03-05] MEDS: HumuLIN R SUBCUT PRN (16:53)
[2018-03-05] MEDS: ASPIRIN 81 MG CHEWTAB PO SCH (22:04)
[2018-03-05] MEDS: COLACE CAP 100 MG PO SCH (22:05)
[2018-03-05] MEDS: PLAVIX PO SCH (22:05)
[2018-03-05] MEDS: OXYBUTYNIN CHLORIDE ER PO SCH (22:05)
[2018-03-05] MEDS: COZAAR PO SCH (22:05)
[2018-03-05] MEDS: LIPITOR TAB 20 MG PO SCH (22:05)
[2018-03-05] MEDS: CORDARONE TAB 200 MG PO SCH (22:05)
[2018-03-05] MEDS: EFFEXOR XR 150 MG CAP PO SCH (22:05)
[2018-03-05] MEDS: PERCOCET TAB 5/325 MG PO PRN (22:06)
[2018-03-05] MEDS: SNACK - Diabetic Appropriate PO SCH (22:06)
[2018-03-06] MEDS: NS 1000 ML 1,000 ML IV SCH (06:04)
[2018-03-06 06:35] LABS: BASOPHILS % (AUTO) 0.6 % (0.2-1.0); EOSINOPHILS # (AUTO) 0.2 x10^3/uL (0.0-0.2); EOSINOPHILS % (AUTO) 2.7 % (0.9-2.9); HEMATOCRIT 27.5 % (36.0-47.0); HEMOGLOBIN 9.4 g/dL (12.0-16.0); LYMPHOCYTES # (AUTO) 1.8 X10^3/uL (1.3-2.9); LYMPHOCYTES % (AUTO) 26.2 % (21.0-51.0); MEAN CORPUSCULAR HEMOGLOBIN 31.6 pg (27.0-34.0); MEAN CORPUSCULAR HGB CONC 34.4 g/dL (33.0-35.0); MEAN PLATELET VOLUME 9.1 fL (7.4-11.0); MONOCYTES # (AUTO) 0.6 x10^3/uL (0.3-0.8); MONOCYTES % (AUTO) 9.5 % (0.0-13.0); NEUTROPHILS # (AUTO) 4.2 x10^3/uL (2.2-4.8); PLATELET COUNT 157 X10^3/uL (150.0-450.0); RED BLOOD COUNT 2.99 X10^6/uL (3.5-5.4); RED CELL DISTRIBUTION WIDTH 13.2 % (11.6-16.5); WHITE BLOOD COUNT 6.8 X10^3/uL (3.6-10.0)
[2018-03-06 06:47] LABS: ALANINE AMINOTRANSFERASE 31 Units/L (12-78); ALBUMIN 2.5 g/dL (3.4-5.0); ALKALINE PHOSPHATASE 114 Units/L (46-116); ASPARTATE AMINO TRANSFERASE 52 Units/L (15-37); BLOOD UREA NITROGEN 16 mg/dL (7-18); CALCIUM 7.9 mg/dL (8.5-10.1); CARBON DIOXIDE 25.5 mmol/L (21-32); CHLORIDE 107 mmol/L (98-107); COR CA(FOR HYPOALB) 9.1 mg/dL (8.5-10.1); COR NA(FOR HYPERGLY) 143 mmol/L (136-145); CREATININE 0.99 mg/dL (0.55-1.02); SODIUM 143 mmol/L (136-145); TOTAL PROTEIN 6.4 g/dL (6.4-8.2); eGFR NON BLACK RACES 57 (>60)
[2018-03-06] MEDS: SYNTHROID 50 mcg TAB PO SCH (08:38)
[2018-03-06] MEDS: ROCEPHIN VIAL 1 GRAM IVP SCH (08:39)
[2018-03-06 12:37] VITALS: BP 177/77
[2018-03-06] MEDS: PERCOCET TAB 5/325 MG PO PRN (12:43)
--- NOTE | 2018-03-06 14:24 | PCM.PROG ---
Progress Note - Progress Note for Day of Date of Exam: 03/05/18 - Subjective Subjective: 82 WF ER ADMISSION ON 03/02 WITH RIGHT ANKLE FRACTURE FOLLOWING A FALL AT HOME. DR PLUMMER CONSULTING. STARTED PO PERCOCET DUE TO UNCONTROLLED PAIN WITH IV NARCOTIC ANALGESIC, WHICH IS CONTROLLIN PAIN. PT FAMILY ASKING FOR CONSERVATIVE MEASURES, "WANT TO AVOID ANY SURGERY" DR PLUMMER PLACED IN ORTHO BOOT TO RLE AND NO WEIGHT BEARING. PT HAS UTI, STARTED ON IV ROCEPHIN WITH URINE CULTURE PENDING. PT HAVING SOME INCREASED CONFUSION, SUSPECT UTI. CASE MANAGEMENT CONSULT FOR SWING BED PLACEMENT FOR REHAB AND IV ATBX FOR UTI. - Past Medical Family Social History Past Med/Fam/Surg Hx: No changes since H&P Allergies: Allergies atorvastatin [From Lipitor] Allergy (Verified 03/02/18 21:25) codeine Allergy (Verified 03/02/18 21:25) duloxetine [From Cymbalta] Allergy (Verified 03/02/18 21:25) sulfamethoxazole [From Bactrim] Allergy (Verified 03/02/18 21:25) trimethoprim [From Bactrim] Allergy (Verified 03/02/18 21:25) CI PIGMENT BLUE 63 Allergy (Uncoded 03/02/18 21:25) - Review of Systems ROS: No change since H&P - Vital Signs and I&O's Vital Signs: Temperature 98.2 F Pulse Rate [Left] 73 Pulse Rate 110 Respiratory Rate 18 Blood Pressure [Left Arm] 177/77 Blood Pressure [Right Arm] 198/93 Blood Pressure 246/110 O2 Sat by Pulse Oximetry 97 Intake and Output: Intake & Output 03/04/18 03/05/18 03/06/18 03/07/18 11:59 11:59 11:59 11:59 Intake Total 2223 / 2223 1650 / 1650 1860 / 1860 Output Total 700 / 700 Balance 2223 / 2223 950 / 950 186 / 1860 - Physical Exam Oriented: Person Eyes: Normal Ear: Normal Nose: Normal Throat: Normal Respiratory: Diminished Cardiovascular: Edema. negative: Bradycardia Auscultation: Bowel Sounds: Normal Tenderness: Normal Skin: Bruising Musculoskeletal: Right, Knee, Leg, Ankle, Foot Psychiatric: Anxiety Affect: Anxious Speech Pattern: Appropriate - Laboratory and Diagnostics Result Diagrams: 03/06/18 04:34 03/06/18 04:34 Labs: 03/04/18 22:44 Urine,Clean Catch Urine Culture - Preliminary Laboratory WBC 6.8 X10^3/uL (3.6-10.0) 03/06/18 04:34 RBC 2.99 X10^6/uL (3.5-5.4) L 03/06/18 04:34 Hgb 9.4 g/dL (12.0-16.0) L 03/06/18 04:34 Hct 27.5 % (36.0-47.0) L 03/06/18 04:34 MCV 92.0 fL (80.0-100.0) 03/06/18 04:34 MCH 31.6 pg (27.0-34.0) 03/06/18 04:34 MCHC 34.4 g/dL (33.0-35.0) 03/06/18 04:34 RDW 13.2 % (11.6-16.5) 03/06/18 04:34 Plt Count 157 X10^3/uL (150.0-450.0) 03/06/18 04:34 MPV 9.1 fL (7.4-11.0) 03/06/18 04:34 Neut % (Auto) 61.0 % (42.0-75.0) 03/06/18 04:34 Lymph % (Auto) 26.2 % (21.0-51.0) 03/06/18 04:34 [place] % (Auto) 9.5 % (0.0-13.0) 03/06/18 04:34 Eos % (Auto) 2.7 % (0.9-2.9) 03/06/18 04:34 Baso % (Auto) 0.6 % (0.2-1.0) 03/06/18 04:34 Neut # (Auto) 4.2 x10^3/uL (2.2-4.8) 03/06/18 04:34 Lymph # (Auto) 1.8 X10^3/uL (1.3-2.9) 03/06/18 04:34 [place] # (Auto) 0.6 x10^3/uL (0.3-0.8) 03/06/18 04:34 Eos # (Auto) 0.2 x10^3/uL (0.0-0.2) 03/06/18 04:34 Baso # (Auto) 0.0 X10^3/uL (0.0-0.1) 03/06/18 04:34 Absolute Nucleated RBC 0.0 /100WBC 03/06/18 04:34 Sodium 143 mmol/L (136-145) 03/06/18 04:34 Corrected Sodium 143 mmol/L (136-145) 03/06/18 04:34 Potassium 3.5 mmol/L (3.5-5.1) 03/06/18 04:34 Chloride 107 mmol/L (98-107) 03/06/18 04:34 Carbon Dioxide 25.5 mmol/L (21-32) 03/06/18 04:34 BUN 16 mg/dL (7-18) 03/06/18 04:34 Creatinine 0.99 mg/dL (0.55-1.02) 03/06/18 04:34 Est GFR (MDRD) Af Amer > 60 (>60) 03/06/18 04:34 Est GFR (MDRD) Non-Af 57 (>60) L 03/06/18 04:34 Glucose 118 mg/dL (65-99) H 03/06/18 04:34 POC Glucose (mg/dL) 162 mg/dL (65-99) H 03/06/18 11:28 Calcium 7.9 mg/dL (8.5-10.1) L 03/06/18 04:34 Corrected Calcium 9.1 mg/dL (8.5-10.1) 03/06/18 04:34 Magnesium 2.0 mg/dL (1.7-2.9) 03/05/18 04:36 Total Bilirubin 0.50 mg/dL (0.2-1.0) 03/06/18 04:34 AST 52 Units/L (15-37) H 03/06/18 04:34 ALT 31 Units/L (12-78) 03/06/18 04:34 Alkaline Phosphatase 114 Units/L (46-116) 03/06/18 04:34 Total Protein 6.4 g/dL (6.4-8.2) 03/06/18 04:34 Albumin 2.5 g/dL (3.4-5.0) L 03/06/18 04:34 Globulin 3.9 g/dL (2.5-4.5) 03/06/18 04:34 Albumin/Globulin Ratio 0.6 Ratio (1.1-2.1) L 03/06/18 04:34 Specimen Type Catherized urine 03/04/18 22:44 Urine Color Pale yellow (YELLOW) 03/04/18 22:44 Urine Appearance Cloudy (CLEAR) 03/04/18 22:44 Urine pH 5.0 (5.0 - 8.0) 03/04/18 22:44 Ur Specific [place] 1.015 (1.000-1.030) 03/04/18 22:44 Urine Protein 2+ (NEGATIVE) 03/04/18 22:44 Urine Glucose (UA) Negative (NEGATIVE) 03/04/18 22:44 Urine Ketones Negative (NEGATIVE) 03/04/18 22:44 Urine Occult Blood 4+ (NEGATIVE) 03/04/18 22:44 Urine Nitrite Negative (NEGATIVE) 03/04/18 22:44 Urine Bilirubin Negative (NEGATIVE) 03/04/18 22:44 Urine Urobilinogen Normal (NORMAL) 03/04/18 22:44 Ur Leukocyte Esterase 2+ (NEGATIVE) 03/04/18 22:44 Urine RBC 5-10 /HPF (NONE SEEN) 03/04/18 22:44 Urine WBC 10-20 /HPF (NONE SEEN) 03/04/18 22:44 Ur Squamous Epith Cells Few /HPF (NEGATIVE) 03/04/18 22:44 Amorphous Sediment 1+ /HPF (NEGATIVE) 03/04/18 22:44 Urine Bacteria Trace /HPF (NEGATIVE) 03/04/18 22:44 Ur Culture Indicated? Yes/culture set up 03/04/18 22:44 - Plan (1) Fracture of right ankle Status: Acute Plan: PAIN CONTROL. ORTHO CONSULT, BP CONTROL. AM LABS, I & OS. FALL PRECAUTIONS, BED REST (2) UTI (urinary tract infection) Status: Acute Plan: IV ROCEPHIN, URINE CULTURE (3) CAD (coronary artery disease) Status: Acute (4) Hypertension Status: Acute (5) Arthritis Status: Chronic (6) Dementia Status: Acute Plan: DISEASE CONTROL, LIPID BP MANAGEMENT
--- NOTE | 2018-03-19 21:46 | PCM.DCPLAN ---
Discharge Summary - Admission Date Date of Admission: 03/03/18 - Discharge Date Discharge Date: 03/06/18 - Admission Diagnoses (1) Fracture of right ankle Status: Acute (2) Pain in right ankle Status: Acute (3) Arthritis Status: Chronic (4) CAD (coronary artery disease) Status: Chronic (5) Dementia Status: Chronic (6) Hyperlipidemia Status: Chronic (7) Hypertension Status: Chronic - Discharge Diagnoses Discharge Diagnosis: SAME ADMISSION DIAGNOSIS - Discharge Medications Discharge Medications: Home Medication List clopidogrel 150 mg PO HS 03/03/18 [History] diazepam 2 mg PO HS 03/03/18 [History] levothyroxine 50 mcg PO DAILY 03/03/18 [History] losartan 100 mg PO HS 03/03/18 [History] Prescriptions: - Hospital Course Vital Signs: Temperature 98.2 F Pulse Rate [Left] 73 Pulse Rate 110 Respiratory Rate 18 Blood Pressure [Left Arm] 177/77 Blood Pressure [Right Arm] 198/93 Blood Pressure 246/110 O2 Sat by Pulse Oximetry 97 Latest Lab Results: Laboratory Last Values WBC 6.8 X10^3/uL (3.6-10.0) 03/06/18 04:34 RBC 2.99 X10^6/uL (3.5-5.4) L 03/06/18 04:34 Hgb 9.4 g/dL (12.0-16.0) L 03/06/18 04:34 Hct 27.5 % (36.0-47.0) L 03/06/18 04:34 MCV 92.0 fL (80.0-100.0) 03/06/18 04:34 MCH 31.6 pg (27.0-34.0) 03/06/18 04:34 MCHC 34.4 g/dL (33.0-35.0) 03/06/18 04:34 RDW 13.2 % (11.6-16.5) 03/06/18 04:34 Plt Count 157 X10^3/uL (150.0-450.0) 03/06/18 04:34 MPV 9.1 fL (7.4-11.0) 03/06/18 04:34 Neut % (Auto) 61.0 % (42.0-75.0) 03/06/18 04:34 Lymph % (Auto) 26.2 % (21.0-51.0) 03/06/18 04:34 [place] % (Auto) 9.5 % (0.0-13.0) 03/06/18 04:34 Eos % (Auto) 2.7 % (0.9-2.9) 03/06/18 04:34 Baso % (Auto) 0.6 % (0.2-1.0) 03/06/18 04:34 Neut # (Auto) 4.2 x10^3/uL (2.2-4.8) 03/06/18 04:34 Lymph # (Auto) 1.8 X10^3/uL (1.3-2.9) 03/06/18 04:34 [place] # (Auto) 0.6 x10^3/uL (0.3-0.8) 03/06/18 04:34 Eos # (Auto) 0.2 x10^3/uL (0.0-0.2) 03/06/18 04:34 Baso # (Auto) 0.0 X10^3/uL (0.0-0.1) 03/06/18 04:34 Absolute Nucleated RBC 0.0 /100WBC 03/06/18 04:34 Sodium 143 mmol/L (136-145) 03/06/18 04:34 Corrected Sodium 143 mmol/L (136-145) 03/06/18 04:34 Potassium 3.5 mmol/L (3.5-5.1) 03/06/18 04:34 Chloride 107 mmol/L (98-107) 03/06/18 04:34 Carbon Dioxide 25.5 mmol/L (21-32) 03/06/18 04:34 BUN 16 mg/dL (7-18) 03/06/18 04:34 Creatinine 0.99 mg/dL (0.55-1.02) 03/06/18 04:34 Est GFR (MDRD) Af Amer > 60 (>60) 03/06/18 04:34 Est GFR (MDRD) Non-Af 57 (>60) L 03/06/18 04:34 Glucose 118 mg/dL (65-99) H 03/06/18 04:34 POC Glucose (mg/dL) 162 mg/dL (65-99) H 03/06/18 11:28 Calcium 7.9 mg/dL (8.5-10.1) L 03/06/18 04:34 Corrected Calcium 9.1 mg/dL (8.5-10.1) 03/06/18 04:34 Magnesium 2.0 mg/dL (1.7-2.9) 03/05/18 04:36 Total Bilirubin 0.50 mg/dL (0.2-1.0) 03/06/18 04:34 AST 52 Units/L (15-37) H 03/06/18 04:34 ALT 31 Units/L (12-78) 03/06/18 04:34 Alkaline Phosphatase 114 Units/L (46-116) 03/06/18 04:34 Total Protein 6.4 g/dL (6.4-8.2) 03/06/18 04:34 Albumin 2.5 g/dL (3.4-5.0) L 03/06/18 04:34 Globulin 3.9 g/dL (2.5-4.5) 03/06/18 04:34 Albumin/Globulin Ratio 0.6 Ratio (1.1-2.1) L 03/06/18 04:34 Specimen Type Catherized urine 03/04/18 22:44 Urine Color Pale yellow (YELLOW) 03/04/18 22:44 Urine Appearance Cloudy (CLEAR) 03/04/18 22:44 Urine pH 5.0 (5.0 - 8.0) 03/04/18 22:44 Ur Specific [place] 1.015 (1.000-1.030) 03/04/18 22:44 Urine Protein 2+ (NEGATIVE) 03/04/18 22:44 Urine Glucose (UA) Negative (NEGATIVE) 03/04/18 22:44 Urine Ketones Negative (NEGATIVE) 03/04/18 22:44 Urine Occult Blood 4+ (NEGATIVE) 03/04/18 22:44 Urine Nitrite Negative (NEGATIVE) 03/04/18 22:44 Urine Bilirubin Negative (NEGATIVE) 03/04/18 22:44 Urine Urobilinogen Normal (NORMAL) 03/04/18 22:44 Ur Leukocyte Esterase 2+ (NEGATIVE) 03/04/18 22:44 Urine RBC 5-10 /HPF (NONE SEEN) 03/04/18 22:44 Urine WBC 10-20 /HPF (NONE SEEN) 03/04/18 22:44 Ur Squamous Epith Cells Few /HPF (NEGATIVE) 03/04/18 22:44 Amorphous Sediment 1+ /HPF (NEGATIVE) 03/04/18 22:44 Urine Bacteria Trace /HPF (NEGATIVE) 03/04/18 22:44 Ur Culture Indicated? Yes/culture set up 03/04/18 22:44 Hospital Course: 82 WF ER ADMISSION ON 03/02 WITH RIGHT ANKLE FRACTURE FOLLOWING A FALL AT HOME. DR PLUMMER CONSULTING. STARTED PO PERCOCET DUE TO UNCONTROLLED PAIN WITH IV NARCOTIC ANALGESIC, WHICH IS CONTROLLIN PAIN. PT FAMILY ASKING FOR CONSERVATIVE MEASURES, "WANT TO AVOID ANY SURGERY" DR PLUMMER PLACED IN ORTHO BOOT TO RLE AND NO WEIGHT BEARING. PT HAS UTI, STARTED ON IV ROCEPHIN WITH URINE CULTURE PENDING. PT HAVING SOME INCREASED CONFUSION, SUSPECT UTI. CASE MANAGEMENT CONSULTED FOR SWING BED PLACEMENT FOR REHAB AND IV ATBX FOR UTI. PATIENT DC TO SWING BED STATUS. - Discharge Plan Disposition: 62 XFER/DISC TO [facility] Condition: Stable - Follow ups/Referrals Follow ups/Referrals: Aaron Lott [Primary Care Provider] - 1 WEEK - Instructions Additional Instructions: pt discharged to swing bed for skilled services.
== END 2018-03-06 12:00 | disposition home or self-care (01) | DRG 563 ==
LOC: ER 21:13 → MED/SURG 03-03 00:39
PROVIDERS: ADMIT Internal Medicine; ATTEND Internal Medicine
DX: K21.9 Gastro-esophageal reflux disease without esophagitis; M25.571 Pain in right ankle and joints of right foot; I10 Essential (primary) hypertension; N39.0 Urinary tract infection, site not specified; R60.0 Localized edema; S82.64XA Nondisplaced fracture of lateral malleolus of right fibula, initial encounter for closed fracture; R26.89 Other abnormalities of gait and mobility; F03.90 Unspecified dementia, unspecified severity, without behavioral disturbance, psychotic disturbance, mood disturbance, and anxiety; I25.10 Atherosclerotic heart disease of native coronary artery without angina pectoris; M13.89 Other specified arthritis, multiple sites; M25.561 Pain in right knee; E78.2 Mixed hyperlipidemia; B95.7 Other staphylococcus as the cause of diseases classified elsewhere; W18.39XA Other fall on same level, initial encounter; E11.65 Type 2 diabetes mellitus with hyperglycemia; F32.89 Other specified depressive episodes
CPT/HCPCS: 29505; 36415; 70450; 71010; 71045; 72170; 73560; 73610; 73700; 80053; 81001; 83735; 85025; 87086; 87088; 87186; 94760; 96365; 96374; 96375; 97110; 97163; 97167; 97530; 97760; 99284; A4222; J0696; J1815; J2175; J2405; J3475; J3480; J3490; J7030

== ENCOUNTER 2018-03-06 13:07 | Inpatient (IN) ==
--- NOTE | 2018-03-06 14:18 | DR.UPDATE ---
H&P Update History and Physical Update: History and Physical reviewed and patient examined. 03/02/2018 Changes noted: NO
[2018-03-06] MEDS: COZAAR PO SCH (16:09)
[2018-03-06] MEDS: PERCOCET TAB 5/325 MG PO PRN (18:27)
[2018-03-06] MEDS ORDERED: PERCOCET TAB 5/325 MG ONE (18:27)
[2018-03-06] MEDS: SNACK - Diabetic Appropriate PO SCH (20:00)
[2018-03-06] MEDS: COLACE CAP 100 MG PO SCH (21:07)
[2018-03-06] MEDS: MILK OF MAGNESIA PO SCH (21:07)
[2018-03-07] MEDS: VITAMIN C PO SCH (08:16)
[2018-03-07] MEDS: COZAAR PO SCH (08:16)
[2018-03-07] MEDS: ZINC SULFATE PO SCH (08:16)
[2018-03-07] MEDS: ROCEPHIN VIAL 1 GRAM IVP SCH (08:16)
[2018-03-07] MEDS: PERCOCET TAB 5/325 MG PO PRN ×2 (12:29→23:26)
[2018-03-07] MEDS: MILK OF MAGNESIA PO SCH (20:45)
[2018-03-07] MEDS: COLACE CAP 100 MG PO SCH (20:45)
[2018-03-07] MEDS: SNACK - Diabetic Appropriate PO SCH (20:46)
[2018-03-08 06:38] LABS: BASOPHILS % (AUTO) 0.6 % (0.2-1.0); EOSINOPHILS # (AUTO) 0.4 x10^3/uL (0.0-0.2); EOSINOPHILS % (AUTO) 5.3 % (0.9-2.9); HEMATOCRIT 29.5 % (36.0-47.0); HEMOGLOBIN 10.1 g/dL (12.0-16.0); LYMPHOCYTES # (AUTO) 2.4 X10^3/uL (1.3-2.9); MEAN CORPUSCULAR HEMOGLOBIN 31.2 pg (27.0-34.0); MEAN CORPUSCULAR HGB CONC 34.1 g/dL (33.0-35.0); MEAN CORPUSCULAR VOLUME 91.6 fL (80.0-100.0); MEAN PLATELET VOLUME 8.8 fL (7.4-11.0); MONOCYTES # (AUTO) 0.7 x10^3/uL (0.3-0.8); MONOCYTES % (AUTO) 9.9 % (0.0-13.0); NEUTROPHILS # (AUTO) 3.6 x10^3/uL (2.2-4.8); NEUTROPHILS % (AUTO) 50.2 % (42.0-75.0); PLATELET COUNT 205 X10^3/uL (150.0-450.0); RED BLOOD COUNT 3.22 X10^6/uL (3.5-5.4); RED CELL DISTRIBUTION WIDTH 13.4 % (11.6-16.5); WHITE BLOOD COUNT 7.2 X10^3/uL (3.6-10.0)
[2018-03-08 07:20] LABS: ALANINE AMINOTRANSFERASE 26 Units/L (12-78); ALBUMIN 2.7 g/dL (3.4-5.0); ALKALINE PHOSPHATASE 101 Units/L (46-116); ASPARTATE AMINO TRANSFERASE 27 Units/L (15-37); BLOOD UREA NITROGEN 17 mg/dL (7-18); CALCIUM 8.4 mg/dL (8.5-10.1); CARBON DIOXIDE 26.9 mmol/L (21-32); CHLORIDE 105 mmol/L (98-107); COR CA(FOR HYPOALB) 9.4 mg/dL (8.5-10.1); COR NA(FOR HYPERGLY) 144 mmol/L (136-145); CREATININE 0.94 mg/dL (0.55-1.02); SODIUM 143 mmol/L (136-145); TOTAL PROTEIN 6.9 g/dL (6.4-8.2); eGFR NON BLACK RACES > 60 (>60)
[2018-03-08] MEDS: COZAAR PO SCH ×2 (09:52→10:33)
[2018-03-08] MEDS: ZINC SULFATE PO SCH ×2 (09:52→10:33)
[2018-03-08] MEDS: ROCEPHIN VIAL 1 GRAM IVP SCH ×2 (09:52→10:31)
[2018-03-08] MEDS: VITAMIN C PO SCH ×2 (09:52→10:33)
[2018-03-08] MEDS: PERCOCET TAB 5/325 MG PO PRN (10:33)
[2018-03-08] MEDS: NORVASC TAB 5 MG PO SCH (14:32)
[2018-03-08] MEDS: HumuLIN R SUBCUT PRN (16:49)
[2018-03-08] MEDS: COLACE CAP 100 MG PO SCH (20:42)
[2018-03-08] MEDS: MILK OF MAGNESIA PO SCH (20:42)
[2018-03-08] MEDS: SNACK - Diabetic Appropriate PO SCH (23:53)
[2018-03-09 05:28] LABS: BASOPHILS % (AUTO) 0.7 % (0.2-1.0); EOSINOPHILS # (AUTO) 0.3 x10^3/uL (0.0-0.2); HEMATOCRIT 30.1 % (36.0-47.0); HEMOGLOBIN 10.1 g/dL (12.0-16.0); LYMPHOCYTES % (AUTO) 29.2 % (21.0-51.0); MEAN CORPUSCULAR HEMOGLOBIN 30.8 pg (27.0-34.0); MEAN CORPUSCULAR HGB CONC 33.5 g/dL (33.0-35.0); MEAN CORPUSCULAR VOLUME 91.9 fL (80.0-100.0); MEAN PLATELET VOLUME 9.1 fL (7.4-11.0); MONOCYTES # (AUTO) 0.6 x10^3/uL (0.3-0.8); NEUTROPHILS # (AUTO) 3.8 x10^3/uL (2.2-4.8); NEUTROPHILS % (AUTO) 56.1 % (42.0-75.0); PLATELET COUNT 239 X10^3/uL (150.0-450.0); RED BLOOD COUNT 3.28 X10^6/uL (3.5-5.4); RED CELL DISTRIBUTION WIDTH 13.2 % (11.6-16.5); WHITE BLOOD COUNT 6.8 X10^3/uL (3.6-10.0)
[2018-03-09 05:34] LABS: ALANINE AMINOTRANSFERASE 22 Units/L (12-78); ALBUMIN 2.5 g/dL (3.4-5.0); ALKALINE PHOSPHATASE 94 Units/L (46-116); ASPARTATE AMINO TRANSFERASE 20 Units/L (15-37); BLOOD UREA NITROGEN 21 mg/dL (7-18); CALCIUM 8.5 mg/dL (8.5-10.1); CARBON DIOXIDE 30.9 mmol/L (21-32); CHLORIDE 106 mmol/L (98-107); COR CA(FOR HYPOALB) 9.7 mg/dL (8.5-10.1); COR NA(FOR HYPERGLY) 146 mmol/L (136-145); CREATININE 1.01 mg/dL (0.55-1.02); SODIUM 144 mmol/L (136-145); TOTAL PROTEIN 6.4 g/dL (6.4-8.2); eGFR NON BLACK RACES 56 (>60)
[2018-03-09] MEDS: COZAAR PO SCH (08:33)
[2018-03-09] MEDS: ZINC SULFATE PO SCH (08:34)
[2018-03-09] MEDS: ROCEPHIN VIAL 1 GRAM IVP SCH (08:34)
[2018-03-09] MEDS: VITAMIN C PO SCH (08:34)
[2018-03-09] MEDS: NORVASC TAB 5 MG PO SCH (08:34)
--- NOTE | 2018-03-09 09:11 | PCM.PROG ---
Progress Note - Progress Note for Day of Date of Exam: 03/08/18 - Subjective Subjective: 82 WF ADMITTED FOR SWINGBED REHAB THERAPY ON 03/06 DUE TO RLE FRACTURE AND UTI. PT HAS BEEN ON IV ATBX FOR UTI, AND WE CONTINUED HER HOME BP MEDICATION. NURSING STAFFF REPORTS PT HAS CONTINUES WITH ELEVATED BLOOD PRESSURE, CURRENTLY ON PO LOSARTAN 100MG DAILY. WE ADDED NORVASC 5MG PO DAILY FO R BP CONTROL. FAMILY AT BEDSIDE AND REPORTS CONTINUED CONFUSION. PT HAD CT HEAD ON ADMISSION WITH CHRONIC FINDINGS, REVIEWED LABS AND DIAGNOSITICS WITH FAMILY. PT ORIENTED TO SELF THIS AM AND LOCALIZED PAIN TO RLE. - Past Medical Family Social History Past Med/Fam/Surg Hx: No changes since H&P Allergies: Allergies atorvastatin [From Lipitor] Allergy (Verified 03/02/18 21:25) codeine Allergy (Verified 03/02/18 21:25) duloxetine [From Cymbalta] Allergy (Verified 03/02/18 21:25) sulfamethoxazole [From Bactrim] Allergy (Verified 03/02/18 21:25) trimethoprim [From Bactrim] Allergy (Verified 03/02/18 21:25) CI PIGMENT BLUE 63 Allergy (Uncoded 03/02/18 21:25) - Review of Systems ROS: No change since H&P - Vital Signs and I&O's Vital Signs: Temperature 98.8 F Pulse Rate [Brachial] 74 Respiratory Rate 20 Blood Pressure [Left Arm] 175/79 Blood Pressure [Right Arm] 160/68 Blood Pressure 177/77 O2 Sat by Pulse Oximetry 98 Intake and Output: Intake & Output 03/06/18 03/07/18 03/08/18 03/09/18 11:59 11:59 11:59 11:59 Intake Total 1940 / 1940 660 / 660 510 / 510 Output Total 800 / 800 500 / 500 Balance 1140 / 1140 160 / 160 510 / 510 - Physical Exam Oriented: Person Eyes: Normal Ear: Normal Nose: Normal Throat: Dry Respiratory: Diminished Cardiovascular: Irregular. negative: Edema Auscultation: Bowel Sounds: Normal Palpation: Normal Tenderness: Normal Skin: Decreased Turgur Musculoskeletal: Right, Ankle, Foot, Swelling, Tender, Motor Deficit, Sensory Deficit, Instability Psychiatric: Anxiety Mood Description: Calm Affect: Depressed Speech Pattern: Appropriate, Delayed - Laboratory and Diagnostics Result Diagrams: 03/09/18 04:47 03/09/18 04:47 Labs: Laboratory WBC 6.8 X10^3/uL (3.6-10.0) 03/09/18 04:47 RBC 3.28 X10^6/uL (3.5-5.4) L 03/09/18 04:47 Hgb 10.1 g/dL (12.0-16.0) L 03/09/18 04:47 Hct 30.1 % (36.0-47.0) L 03/09/18 04:47 MCV 91.9 fL (80.0-100.0) 03/09/18 04:47 MCH 30.8 pg (27.0-34.0) 03/09/18 04:47 MCHC 33.5 g/dL (33.0-35.0) 03/09/18 04:47 RDW 13.2 % (11.6-16.5) 03/09/18 04:47 Plt Count 239 X10^3/uL (150.0-450.0) 03/09/18 04:47 MPV 9.1 fL (7.4-11.0) 03/09/18 04:47 Neut % (Auto) 56.1 % (42.0-75.0) 03/09/18 04:47 Lymph % (Auto) 29.2 % (21.0-51.0) 03/09/18 04:47 [place] % (Auto) 9.0 % (0.0-13.0) 03/09/18 04:47 Eos % (Auto) 5.0 % (0.9-2.9) H 03/09/18 04:47 Baso % (Auto) 0.7 % (0.2-1.0) 03/09/18 04:47 Neut # (Auto) 3.8 x10^3/uL (2.2-4.8) 03/09/18 04:47 Lymph # (Auto) 2.0 X10^3/uL (1.3-2.9) 03/09/18 04:47 [place] # (Auto) 0.6 x10^3/uL (0.3-0.8) 03/09/18 04:47 Eos # (Auto) 0.3 x10^3/uL (0.0-0.2) H 03/09/18 04:47 Baso # (Auto) 0.0 X10^3/uL (0.0-0.1) 03/09/18 04:47 Absolute Nucleated RBC 0.1 /100WBC 03/09/18 04:47 Sodium 144 mmol/L (136-145) 03/09/18 04:47 Corrected Sodium 146 mmol/L (136-145) H 03/09/18 04:47 Potassium 3.9 mmol/L (3.5-5.1) 03/09/18 04:47 Chloride 106 mmol/L (98-107) 03/09/18 04:47 Carbon Dioxide 30.9 mmol/L (21-32) 03/09/18 04:47 BUN 21 mg/dL (7-18) H 03/09/18 04:47 Creatinine 1.01 mg/dL (0.55-1.02) 03/09/18 04:47 Est GFR (MDRD) Af Amer > 60 (>60) 03/09/18 04:47 Est GFR (MDRD) Non-Af 56 (>60) L 03/09/18 04:47 Glucose 164 mg/dL (65-99) H 03/09/18 04:47 POC Glucose (mg/dL) 122 mg/dL (65-99) H 03/07/18 06:31 Calcium 8.5 mg/dL (8.5-10.1) 03/09/18 04:47 Corrected Calcium 9.7 mg/dL (8.5-10.1) 03/09/18 04:47 Total Bilirubin 0.40 mg/dL (0.2-1.0) 03/09/18 04:47 AST 20 Units/L (15-37) 03/09/18 04:47 ALT 22 Units/L (12-78) 03/09/18 04:47 Alkaline Phosphatase 94 Units/L (46-116) 03/09/18 04:47 Total Protein 6.4 g/dL (6.4-8.2) 03/09/18 04:47 Albumin 2.5 g/dL (3.4-5.0) L 03/09/18 04:47 Globulin 3.9 g/dL (2.5-4.5) 03/09/18 04:47 Albumin/Globulin Ratio 0.6 Ratio (1.1-2.1) L 03/09/18 04:47 - Plan (1) Fracture of right ankle Status: Acute Plan: CONTINUE LABS PER SWINGBED PROTOCOL, PHYSICAL THERAPY. BP CONTROL, PAIN CONTROL. FALL RISK DUE TO DEMENTIA, CONTINUE IV ATBX FOR UTI. ENCOURAGE ORAL HYDRATION, PULOMARY TOILETING, IS (2) UTI (urinary tract infection) Status: Acute (3) CAD (coronary artery disease) Status: Acute (4) Hypertension Status: Acute (5) Dementia Status: Acute (6) Generalized anxiety disorder Status: Chronic (7) Depression Status: Chronic Qualifiers: Depression Type: major depressive disorder Active/Remission status: currently active Major depression episode severity: moderate
[2018-03-09] MEDS: CIPRO TAB 500 MG PO SCH ×2 (10:08→20:03)
[2018-03-09] MEDS: ASPIRIN EC 81 MG PO SCH (10:08)
[2018-03-09] MEDS: SYNTHROID 50 mcg TAB PO SCH ×2 (10:08→16:59)
[2018-03-09] MEDS: HumuLIN R SUBCUT PRN ×2 (11:27→18:32)
[2018-03-09] MEDS: PERCOCET TAB 5/325 MG PO PRN (15:55)
[2018-03-09] MEDS: COLACE CAP 100 MG PO SCH (20:02)
[2018-03-09] MEDS: SNACK - Diabetic Appropriate PO SCH (20:03)
[2018-03-09] MEDS: MILK OF MAGNESIA PO SCH ×2 (20:03→20:06)
[2018-03-10 05:17] LABS: BASOPHILS % (AUTO) 0.6 % (0.2-1.0); EOSINOPHILS # (AUTO) 0.4 x10^3/uL (0.0-0.2); EOSINOPHILS % (AUTO) 5.7 % (0.9-2.9); HEMATOCRIT 29.9 % (36.0-47.0); HEMOGLOBIN 10.1 g/dL (12.0-16.0); LYMPHOCYTES # (AUTO) 2.5 X10^3/uL (1.3-2.9); LYMPHOCYTES % (AUTO) 36.7 % (21.0-51.0); MEAN CORPUSCULAR HEMOGLOBIN 30.9 pg (27.0-34.0); MEAN CORPUSCULAR HGB CONC 33.8 g/dL (33.0-35.0); MEAN CORPUSCULAR VOLUME 91.6 fL (80.0-100.0); MEAN PLATELET VOLUME 8.6 fL (7.4-11.0); MONOCYTES # (AUTO) 0.6 x10^3/uL (0.3-0.8); MONOCYTES % (AUTO) 8.2 % (0.0-13.0); NEUTROPHILS # (AUTO) 3.3 x10^3/uL (2.2-4.8); NEUTROPHILS % (AUTO) 48.8 % (42.0-75.0); PLATELET COUNT 265 X10^3/uL (150.0-450.0); RED BLOOD COUNT 3.27 X10^6/uL (3.5-5.4); RED CELL DISTRIBUTION WIDTH 13.1 % (11.6-16.5); WHITE BLOOD COUNT 6.9 X10^3/uL (3.6-10.0)
[2018-03-10 05:31] LABS: ALANINE AMINOTRANSFERASE 21 Units/L (12-78); ALBUMIN 2.5 g/dL (3.4-5.0); ALKALINE PHOSPHATASE 93 Units/L (46-116); ASPARTATE AMINO TRANSFERASE 18 Units/L (15-37); BLOOD UREA NITROGEN 23 mg/dL (7-18); CALCIUM 8.6 mg/dL (8.5-10.1); CARBON DIOXIDE 31.4 mmol/L (21-32); CHLORIDE 104 mmol/L (98-107); COR CA(FOR HYPOALB) 9.8 mg/dL (8.5-10.1); COR NA(FOR HYPERGLY) 144 mmol/L (136-145); CREATININE 1.06 mg/dL (0.55-1.02); SODIUM 143 mmol/L (136-145); TOTAL PROTEIN 6.4 g/dL (6.4-8.2); eGFR NON BLACK RACES 53 (>60)
[2018-03-10] MEDS: ZINC SULFATE PO SCH (08:08)
[2018-03-10] MEDS: COZAAR PO SCH (08:08)
[2018-03-10] MEDS: PERCOCET TAB 5/325 MG PO PRN (08:08)
[2018-03-10] MEDS: VITAMIN C PO SCH (08:09)
[2018-03-10] MEDS: CIPRO TAB 500 MG PO SCH ×2 (08:09→20:19)
[2018-03-10] MEDS: ASPIRIN EC 81 MG PO SCH (08:09)
[2018-03-10] MEDS: NORVASC TAB 5 MG PO SCH (08:09)
[2018-03-10] MEDS: HumuLIN R SUBCUT PRN ×2 (11:18→17:29)
[2018-03-10] MEDS: SYNTHROID 50 mcg TAB PO SCH (17:17)
[2018-03-10] MEDS: COLACE CAP 100 MG PO SCH (20:20)
[2018-03-10] MEDS: SNACK - Diabetic Appropriate PO SCH (20:20)
[2018-03-10] MEDS: MILK OF MAGNESIA PO SCH (20:20)
[2018-03-11 05:15] LABS: BASOPHILS % (AUTO) 0.5 % (0.2-1.0); EOSINOPHILS # (AUTO) 0.4 x10^3/uL (0.0-0.2); EOSINOPHILS % (AUTO) 4.7 % (0.9-2.9); HEMATOCRIT 31.4 % (36.0-47.0); HEMOGLOBIN 10.3 g/dL (12.0-16.0); LYMPHOCYTES # (AUTO) 2.3 X10^3/uL (1.3-2.9); LYMPHOCYTES % (AUTO) 30.4 % (21.0-51.0); MEAN CORPUSCULAR HEMOGLOBIN 30.3 pg (27.0-34.0); MEAN CORPUSCULAR HGB CONC 32.9 g/dL (33.0-35.0); MEAN CORPUSCULAR VOLUME 91.8 fL (80.0-100.0); MEAN PLATELET VOLUME 8.7 fL (7.4-11.0); MONOCYTES # (AUTO) 0.6 x10^3/uL (0.3-0.8); MONOCYTES % (AUTO) 7.6 % (0.0-13.0); NEUTROPHILS # (AUTO) 4.3 x10^3/uL (2.2-4.8); NEUTROPHILS % (AUTO) 56.8 % (42.0-75.0); PLATELET COUNT 294 X10^3/uL (150.0-450.0); RED BLOOD COUNT 3.42 X10^6/uL (3.5-5.4); RED CELL DISTRIBUTION WIDTH 13.3 % (11.6-16.5); WHITE BLOOD COUNT 7.5 X10^3/uL (3.6-10.0)
[2018-03-11 05:23] LABS: ALANINE AMINOTRANSFERASE 21 Units/L (12-78); ALBUMIN 2.7 g/dL (3.4-5.0); ALKALINE PHOSPHATASE 95 Units/L (46-116); ASPARTATE AMINO TRANSFERASE 19 Units/L (15-37); BLOOD UREA NITROGEN 23 mg/dL (7-18); CALCIUM 8.4 mg/dL (8.5-10.1); CARBON DIOXIDE 32.2 mmol/L (21-32); CHLORIDE 103 mmol/L (98-107); COR CA(FOR HYPOALB) 9.4 mg/dL (8.5-10.1); COR NA(FOR HYPERGLY) 145 mmol/L (136-145); CREATININE 1.03 mg/dL (0.55-1.02); SODIUM 143 mmol/L (136-145); TOTAL PROTEIN 6.8 g/dL (6.4-8.2); eGFR NON BLACK RACES 55 (>60)
[2018-03-11] MEDS: ZINC SULFATE PO SCH (10:13)
[2018-03-11] MEDS: VITAMIN C PO SCH (10:13)
[2018-03-11] MEDS: CIPRO TAB 500 MG PO SCH ×2 (10:13→20:59)
[2018-03-11] MEDS: COZAAR PO SCH (10:14)
[2018-03-11] MEDS: NORVASC TAB 5 MG PO SCH (10:14)
[2018-03-11] MEDS: ASPIRIN EC 81 MG PO SCH (10:16)
[2018-03-11] MEDS: PERCOCET TAB 5/325 MG PO PRN (13:58)
[2018-03-11] MEDS: HumuLIN R SUBCUT PRN ×2 (13:58→18:13)
[2018-03-11] MEDS: SYNTHROID 50 mcg TAB PO SCH (18:04)
[2018-03-11] MEDS: COLACE CAP 100 MG PO SCH (20:59)
[2018-03-11] MEDS: MILK OF MAGNESIA PO SCH (21:00)
[2018-03-11] MEDS: SNACK - Diabetic Appropriate PO SCH (22:09)
[2018-03-12] MEDS: HumuLIN R SUBCUT PRN ×2 (05:32→17:11)
--- NOTE | 2018-03-12 08:25 | PCM.PROG ---
Progress Note - Progress Note for Day of Date of Exam: 03/11/18 - Subjective Subjective: 82 WF ADMITTED FOR SWINGBED REHAB THERAPY ON 03/06 DUE TO RLE FRACTURE AND UTI. PT HAS BEEN ON IV ATBX FOR UTI AND CONTINUES TO RECEIVE PHYSICAL THERAPY. FAMILY AT BEDSIDE AND REPORTS THAT CONFUSION IS IMPROVING. SHE IS ALERT AND ORIENTED THIS MORNING. SHE REPORTS PAIN TO THE RLE TODAY. HER BUN AND CREATININE ARE INCREASING. WE WILL ENCOURAGE INCREASED PO FLUIDS AND CONTINUE WITH CURRENT PLAN OF CARE TODAY. - Past Medical Family Social History Past Med/Fam/Surg Hx: No changes since H&P Allergies: Allergies atorvastatin [From Lipitor] Allergy (Verified 03/02/18 21:25) codeine Allergy (Verified 03/02/18 21:25) duloxetine [From Cymbalta] Allergy (Verified 03/02/18 21:25) sulfamethoxazole [From Bactrim] Allergy (Verified 03/02/18 21:25) trimethoprim [From Bactrim] Allergy (Verified 03/02/18 21:25) CI PIGMENT BLUE 63 Allergy (Uncoded 03/02/18 21:25) - Review of Systems ROS: No change since H&P - Vital Signs and I&O's Vital Signs: Temperature 97.6 F Pulse Rate [Left Brachial] 69 Pulse Rate [Brachial] 67 Respiratory Rate 20 Blood Pressure [Left Arm] 182/82 Blood Pressure [Right Arm] 160/68 Blood Pressure 177/77 O2 Sat by Pulse Oximetry 99 Intake and Output: Intake & Output 03/09/18 03/10/18 03/11/18 03/12/18 11:59 11:59 11:59 11:59 Intake Total 510 / 510 1070 / 1070 950 / 950 680 / 680 Balance 510 / 510 1070 / 1070 950 / 950 680 / 680 - Physical Exam Oriented: Normal Eyes: Normal Ear: Normal Nose: Normal Throat: Dry Respiratory: Diminished Cardiovascular: Irregular. negative: Edema Auscultation: Bowel Sounds: Normal Palpation: Normal Tenderness: Normal Skin: Decreased Turgur Musculoskeletal: Right, Ankle, Foot, Swelling, Tender, Motor Deficit, Sensory Deficit, Instability Psychiatric: Anxiety Mood Description: Calm Affect: Depressed Speech Pattern: Clear, Appropriate - Laboratory and Diagnostics Result Diagrams: 03/11/18 04:22 03/11/18 04:22 Labs: Laboratory WBC 7.5 X10^3/uL (3.6-10.0) 03/11/18 04:22 RBC 3.42 X10^6/uL (3.5-5.4) L 03/11/18 04:22 Hgb 10.3 g/dL (12.0-16.0) L 03/11/18 04:22 Hct 31.4 % (36.0-47.0) L 03/11/18 04:22 MCV 91.8 fL (80.0-100.0) 03/11/18 04:22 MCH 30.3 pg (27.0-34.0) 03/11/18 04:22 MCHC 32.9 g/dL (33.0-35.0) L 03/11/18 04:22 RDW 13.3 % (11.6-16.5) 03/11/18 04:22 Plt Count 294 X10^3/uL (150.0-450.0) 03/11/18 04:22 MPV 8.7 fL (7.4-11.0) 03/11/18 04:22 Neut % (Auto) 56.8 % (42.0-75.0) 03/11/18 04:22 Lymph % (Auto) 30.4 % (21.0-51.0) 03/11/18 04:22 [place] % (Auto) 7.6 % (0.0-13.0) 03/11/18 04:22 Eos % (Auto) 4.7 % (0.9-2.9) H 03/11/18 04:22 Baso % (Auto) 0.5 % (0.2-1.0) 03/11/18 04:22 Neut # (Auto) 4.3 x10^3/uL (2.2-4.8) 03/11/18 04:22 Lymph # (Auto) 2.3 X10^3/uL (1.3-2.9) 03/11/18 04:22 [place] # (Auto) 0.6 x10^3/uL (0.3-0.8) 03/11/18 04:22 Eos # (Auto) 0.4 x10^3/uL (0.0-0.2) H 03/11/18 04:22 Baso # (Auto) 0.0 X10^3/uL (0.0-0.1) 03/11/18 04:22 Absolute Nucleated RBC 0.0 /100WBC 03/11/18 04:22 Sodium 143 mmol/L (136-145) 03/11/18 04:22 Corrected Sodium 145 mmol/L (136-145) 03/11/18 04:22 Potassium 3.9 mmol/L (3.5-5.1) 03/11/18 04:22 Chloride 103 mmol/L (98-107) 03/11/18 04:22 Carbon Dioxide 32.2 mmol/L (21-32) H 03/11/18 04:22 BUN 23 mg/dL (7-18) H 03/11/18 04:22 Creatinine 1.03 mg/dL (0.55-1.02) H 03/11/18 04:22 Est GFR (MDRD) Af Amer > 60 (>60) 03/11/18 04:22 Est GFR (MDRD) Non-Af 55 (>60) L 03/11/18 04:22 Glucose 163 mg/dL (65-99) H 03/11/18 04:22 POC Glucose (mg/dL) 206 mg/dL (65-99) H 03/12/18 05:27 Calcium 8.4 mg/dL (8.5-10.1) L 03/11/18 04:22 Corrected Calcium 9.4 mg/dL (8.5-10.1) 03/11/18 04:22 Total Bilirubin 0.30 mg/dL (0.2-1.0) 03/11/18 04:22 AST 19 Units/L (15-37) 03/11/18 04:22 ALT 21 Units/L (12-78) 03/11/18 04:22 Alkaline Phosphatase 95 Units/L (46-116) 03/11/18 04:22 Total Protein 6.8 g/dL (6.4-8.2) 03/11/18 04:22 Albumin 2.7 g/dL (3.4-5.0) L 03/11/18 04:22 Globulin 4.1 g/dL (2.5-4.5) 03/11/18 04:22 Albumin/Globulin Ratio 0.7 Ratio (1.1-2.1) L 03/11/18 04:22 - Plan (1) Fracture of right ankle Status: Acute Qualifiers: Fracture type: closed Fracture healing: with routine healing Plan: CONTINUE LABS PER SWINGBED PROTOCOL, PHYSICAL THERAPY. BP CONTROL, PAIN CONTROL. FALL RISK DUE TO DEMENTIA, CONTINUE IV ATBX FOR UTI. ENCOURAGE ORAL HYDRATION, PULOMARY TOILETING, IS (2) UTI (urinary tract infection) Status: Acute Qualifiers: Urinary tract infection type: acute cystitis Hematuria presence: without he maturia Qualified Code(s): N30.00 - Acute cystitis without hematuria (3) CAD (coronary artery disease) Status: Acute Qualifiers: Coronary Disease-Associated Artery/Lesion type: [place] artery [place] vs. transplanted heart: [place] heart Associated angina: with unspecified angina Qualified Code(s): I25.119 - Atherosclerotic heart disease of [place] coronary artery with unspecified angina pectoris (4) Hypertension Status: Acute Qualifiers: Hypertension type: essential hypertension Qualified Code(s): I10 - Essential (primary) hypertension (5) Dementia Status: Acute Qualifiers: Dementia type: Alzheimer's disease Alzheimer's disease onset: unspecified onset Dementia behavioral disturbance: without behavioral disturbance Qualified Code(s): G30.9 - Alzheimer's disease, unspecified; F02.80 - Dementia in other diseases classified elsewhere without behavioral disturbance (6) Generalized anxiety disorder Status: Chronic (7) Depression Status: Chronic Qualifiers: Depression Type: major depressive disorder Active/Remission status: currently active Major depression episode severity: moderate
[2018-03-12] MEDS: ASPIRIN EC 81 MG PO SCH (08:49)
[2018-03-12] MEDS: VITAMIN C PO SCH (08:49)
[2018-03-12] MEDS: ZINC SULFATE PO SCH (08:50)
[2018-03-12] MEDS: COZAAR PO SCH (08:50)
[2018-03-12] MEDS: NORVASC TAB 5 MG PO SCH (08:50)
[2018-03-12] MEDS: CIPRO TAB 500 MG PO SCH ×2 (08:50→20:09)
[2018-03-12] MEDS: SYNTHROID 50 mcg TAB PO SCH (17:11)
[2018-03-12] MEDS: SNACK - Diabetic Appropriate PO SCH (20:09)
[2018-03-12] MEDS: MILK OF MAGNESIA PO SCH (20:10)
[2018-03-12] MEDS: COLACE CAP 100 MG PO SCH (20:10)
[2018-03-13] MEDS: PERCOCET TAB 5/325 MG PO PRN ×2 (02:01→21:23)
[2018-03-13 04:56] VITALS: BMI 21.4
[2018-03-13] MEDS: NORVASC TAB 5 MG PO SCH (09:26)
[2018-03-13] MEDS: COZAAR PO SCH (09:26)
[2018-03-13] MEDS: ASPIRIN EC 81 MG PO SCH (09:26)
[2018-03-13] MEDS: CIPRO TAB 500 MG PO SCH ×2 (09:26→20:16)
[2018-03-13] MEDS: VITAMIN C PO SCH (09:26)
[2018-03-13] MEDS: ZINC SULFATE PO SCH (09:26)
[2018-03-13] MEDS: HumuLIN R SUBCUT PRN (11:21)
--- NOTE | 2018-03-13 15:44 | RAD ---
HISTORY: Follow-up right ankle fracture Study: Right ankle series Comparison: Right ankle series of 03/02/2018 Technique: AP obliques and lateral views of the ankle immobilized in a splint Findings:. There is anatomic alignment of the oblique fracture of the distal fibula. Alignment of the ankle mortise is normal IMPRESSION: 1. Anatomic alignment of the ankle mortise with nondisplaced distal fibular fracture immobilized in splint Reported By:
[2018-03-13] MEDS: SYNTHROID 50 mcg TAB PO SCH (16:30)
[2018-03-13] MEDS: SNACK - Diabetic Appropriate PO SCH (20:16)
[2018-03-13] MEDS: COLACE CAP 100 MG PO SCH (20:16)
[2018-03-13] MEDS: MILK OF MAGNESIA PO SCH (20:16)
[2018-03-14 06:16] LABS: ALBUMIN 2.7 g/dL (3.4-5.0); CALCIUM 8.4 mg/dL (8.5-10.1); CARBON DIOXIDE 28.9 mmol/L (21-32); COR CA(FOR HYPOALB) 9.4 mg/dL (8.5-10.1); CREATININE 1.13 mg/dL (0.55-1.02); TOTAL PROTEIN 6.5 g/dL (6.4-8.2)
[2018-03-14 07:03] LABS: BASOPHILS # (AUTO) 0.1 X10^3/uL (0.0-0.1); BASOPHILS % (AUTO) 0.7 % (0.2-1.0); EOSINOPHILS # (AUTO) 0.4 x10^3/uL (0.0-0.2); EOSINOPHILS % (AUTO) 5.2 % (0.9-2.9); HEMOGLOBIN 10.4 g/dL (12.0-16.0); LYMPHOCYTES # (AUTO) 2.6 X10^3/uL (1.3-2.9); LYMPHOCYTES % (AUTO) 34.7 % (21.0-51.0); MEAN CORPUSCULAR HEMOGLOBIN 31.1 pg (27.0-34.0); MEAN CORPUSCULAR HGB CONC 33.6 g/dL (33.0-35.0); MEAN CORPUSCULAR VOLUME 92.5 fL (80.0-100.0); MEAN PLATELET VOLUME 8.6 fL (7.4-11.0); MONOCYTES # (AUTO) 0.6 x10^3/uL (0.3-0.8); MONOCYTES % (AUTO) 8.2 % (0.0-13.0); NEUTROPHILS # (AUTO) 3.8 x10^3/uL (2.2-4.8); NEUTROPHILS % (AUTO) 51.2 % (42.0-75.0); PLATELET COUNT 336 X10^3/uL (150.0-450.0); RED BLOOD COUNT 3.36 X10^6/uL (3.5-5.4); RED CELL DISTRIBUTION WIDTH 13.7 % (11.6-16.5); WHITE BLOOD COUNT 7.4 X10^3/uL (3.6-10.0)
[2018-03-14] MEDS: ASPIRIN EC 81 MG PO SCH (08:21)
[2018-03-14] MEDS: CIPRO TAB 500 MG PO SCH ×2 (08:21→21:19)
[2018-03-14] MEDS: COZAAR PO SCH (08:21)
[2018-03-14] MEDS: ZINC SULFATE PO SCH (08:21)
[2018-03-14] MEDS: VITAMIN C PO SCH (08:22)
[2018-03-14] MEDS: NORVASC TAB 5 MG PO SCH (08:22)
[2018-03-14] MEDS: PERCOCET TAB 5/325 MG PO PRN (10:00)
[2018-03-14] MEDS: SYNTHROID 50 mcg TAB PO SCH (16:50)
[2018-03-14] MEDS: COLACE CAP 100 MG PO SCH (21:19)
[2018-03-14] MEDS: MILK OF MAGNESIA PO SCH (21:19)
[2018-03-14] MEDS: SNACK - Diabetic Appropriate PO SCH (21:19)
[2018-03-15] MEDS: PERCOCET TAB 5/325 MG PO PRN (04:09)
[2018-03-15] MEDS: NORVASC TAB 5 MG PO SCH (09:22)
[2018-03-15] MEDS: COZAAR PO SCH (09:22)
[2018-03-15] MEDS: CIPRO TAB 500 MG PO SCH ×2 (09:22→21:23)
[2018-03-15] MEDS: VITAMIN C PO SCH (09:22)
[2018-03-15] MEDS: ASPIRIN EC 81 MG PO SCH (09:22)
[2018-03-15] MEDS: ZINC SULFATE PO SCH (09:22)
[2018-03-15] MEDS: SYNTHROID 50 mcg TAB PO SCH (17:06)
--- NOTE | 2018-03-15 17:33 | PCM.PROG ---
Progress Note - Progress Note for Day of Date of Exam: 03/14/18 - Subjective Subjective: 82 WF, PATIENT OF OURS WHO WAS ADMITTED FOR SWINGBED REHAB THERAPY ON 03/06 DUE TO RLE FRACTURE AND UTI. PT HAS BEEN ON IV ATBX FOR UTI AND CONTINUES TO RECEIVE PHYSICAL THERAPY. HER BLOOD PRESSURE AND KIDNEY FUNCTION HAVE BEEN SLIGHTLY ELEVATED. SHE IS ALERT AND ORIENTED THIS MORNING. SHE REPORTS PAIN TO THE RLE TODAY. WE WILL CONTINUE TO ENCOURAGE ORAL FLUID INTAKE. WE WILL ALSO INCREASE HER AMLODIPINE TO 10MG PO DAILY. OTHERWISE, WE WILL CONTINUE WITH CURRENT PLAN OF CARE TODAY AND CONTINUE TO MONITOR PATIENT. - Past Medical Family Social History Past Med/Fam/Surg Hx: No changes since H&P Allergies: Allergies atorvastatin [From Lipitor] Allergy (Verified 03/02/18 21:25) codeine Allergy (Verified 03/02/18 21:25) duloxetine [From Cymbalta] Allergy (Verified 03/02/18 21:25) sulfamethoxazole [From Bactrim] Allergy (Verified 03/02/18 21:25) trimethoprim [From Bactrim] Allergy (Verified 03/02/18 21:25) CI PIGMENT BLUE 63 Allergy (Uncoded 03/02/18 21:25) - Review of Systems ROS: No change since H&P - Vital Signs and I&O's Vital Signs: Temperature 97.5 F Pulse Rate [Left Brachial] 68 Pulse Rate [Brachial] 67 Respiratory Rate 18 Blood Pressure [Left Arm] 148/67 Blood Pressure [Right Arm] 172/75 Blood Pressure 177/77 O2 Sat by Pulse Oximetry 98 Intake and Output: Intake & Output 03/13/18 03/14/18 03/15/18 03/16/18 11:59 11:59 11:59 11:59 Intake Total 1220 / 1220 1190 / 1190 1310 / 1310 690 / 690 Balance 1220 / 1220 1190 / 1190 1310 / 1310 690 / 690 - Physical Exam Oriented: Normal Eyes: Normal Ear: Normal Nose: Normal Throat: Dry Respiratory: Diminished Cardiovascular: Irregular. negative: Edema Auscultation: Bowel Sounds: Normal Palpation: Normal Tenderness: Normal Skin: Decreased Turgur Musculoskeletal: Right, Ankle, Foot, Swelling, Tender, Motor Deficit, Sensory Deficit, Instability Psychiatric: Anxiety Mood Description: Calm Affect: Depressed Speech Pattern: Clear, Appropriate - Laboratory and Diagnostics Result Diagrams: 12/08/18 04:09 03/14/18 04:09 Labs: Laboratory WBC 7.4 X10^3/uL (3.6-10.0) 03/14/18 04:09 RBC 3.36 X10^6/uL (3.5-5.4) L 03/14/18 04:09 Hgb 10.4 g/dL (12.0-16.0) L 03/14/18 04:09 Hct 31.0 % (36.0-47.0) L 03/14/18 04:09 MCV 92.5 fL (80.0-100.0) 03/14/18 04:09 MCH 31.1 pg (27.0-34.0) 03/14/18 04:09 MCHC 33.6 g/dL (33.0-35.0) 03/14/18 04:09 RDW 13.7 % (11.6-16.5) 03/14/18 04:09 Plt Count 336 X10^3/uL (150.0-450.0) 03/14/18 04:09 MPV 8.6 fL (7.4-11.0) 03/14/18 04:09 Neut % (Auto) 51.2 % (42.0-75.0) 03/14/18 04:09 Lymph % (Auto) 34.7 % (21.0-51.0) 03/14/18 04:09 [place] % (Auto) 8.2 % (0.0-13.0) 03/14/18 04:09 Eos % (Auto) 5.2 % (0.9-2.9) H 03/14/18 04:09 Baso % (Auto) 0.7 % (0.2-1.0) 03/14/18 04:09 Neut # (Auto) 3.8 x10^3/uL (2.2-4.8) 03/14/18 04:09 Lymph # (Auto) 2.6 X10^3/uL (1.3-2.9) 03/14/18 04:09 [place] # (Auto) 0.6 x10^3/uL (0.3-0.8) 03/14/18 04:09 Eos # (Auto) 0.4 x10^3/uL (0.0-0.2) H 03/14/18 04:09 Baso # (Auto) 0.1 X10^3/uL (0.0-0.1) 03/14/18 04:09 Absolute Nucleated RBC 0.1 /100WBC 03/14/18 04:09 Sodium 142 mmol/L (136-145) 03/14/18 04:09 Corrected Sodium 144 mmol/L (136-145) 03/14/18 04:09 Potassium 3.6 mmol/L (3.5-5.1) 03/14/18 04:09 Chloride 104 mmol/L (98-107) 03/14/18 04:09 Carbon Dioxide 28.9 mmol/L (21-32) 03/14/18 04:09 BUN 21 mg/dL (7-18) H 03/14/18 04:09 Creatinine 1.13 mg/dL (0.55-1.02) H 03/14/18 04:09 Est GFR (MDRD) Af Amer 59 (>60) 03/14/18 04:09 Est GFR (MDRD) Non-Af 49 (>60) L 03/14/18 04:09 Glucose 176 mg/dL (65-99) H 03/14/18 04:09 POC Glucose (mg/dL) 151 mg/dL (65-99) H 03/15/18 17:10 Calcium 8.4 mg/dL (8.5-10.1) L 03/14/18 04:09 Corrected Calcium 9.4 mg/dL (8.5-10.1) 03/14/18 04:09 Total Bilirubin 0.30 mg/dL (0.2-1.0) 03/14/18 04:09 AST 21 Units/L (15-37) 03/14/18 04:09 ALT 19 Units/L (12-78) 03/14/18 04:09 Alkaline Phosphatase 95 Units/L (46-116) 03/14/18 04:09 Total Protein 6.5 g/dL (6.4-8.2) 03/14/18 04:09 Albumin 2.7 g/dL (3.4-5.0) L 03/14/18 04:09 Globulin 3.8 g/dL (2.5-4.5) 03/14/18 04:09 Albumin/Globulin Ratio 0.7 Ratio (1.1-2.1) L 03/14/18 04:09 - Plan (1) Fracture of right ankle Status: Acute Qualifiers: Fracture type: closed Fracture healing: with routine healing Plan: CONTINUE LABS PER SWINGBED PROTOCOL, PHYSICAL THERAPY. BP CONTROL, PAIN CONTROL. FALL RISK DUE TO DEMENTIA, CONTINUE IV ATBX FOR UTI. ENCOURAGE ORAL HYDRATION, PULOMARY TOILETING, IS (2) UTI (urinary tract infection) Status: Acute Qualifiers: Urinary tract infection type: acute cystitis Hematuria presence: without hematuria Qualified Code(s): N30.00 - Acute cystitis without hematuria (3) CAD (coronary artery disease) Status: Acute Qualifiers: Coronary Disease-Associated Artery/Lesion type: [place] artery [place] vs. transplanted heart: [place] heart Associated angina: with unspecified angina Qualified Code(s): I25.119 - Atherosclerotic heart disease of [place] coronary artery with unspecified angina pectoris (4) Hypertension Status: Acute Qualifiers: Hypertension type: essential hypertension Qualified Code(s): I10 - E ssential (primary) hypertension (5) Dementia Status: Acute Qualifiers: Dementia type: Alzheimer's disease Alzheimer's disease onset: unspecified onset Dementia behavioral disturbance: without behavioral disturbance Qualified Code(s): G30.9 - Alzheimer's disease, unspecified; F02.80 - Dementia in other diseases classified elsewhere without behavioral disturbance (6) Generalized anxiety disorder Status: Chronic (7) Depression Status: Chronic Qualifiers: Depression Type: major depressive disorder Active/Remission status: currently active Major depression episode severity: moderate
[2018-03-15] MEDS: COLACE CAP 100 MG PO SCH (21:24)
[2018-03-15] MEDS: MILK OF MAGNESIA PO SCH (21:24)
[2018-03-15] MEDS: SNACK - Diabetic Appropriate PO SCH (21:27)
[2018-03-16] MEDS: VITAMIN C PO SCH (10:19)
[2018-03-16] MEDS: ASPIRIN EC 81 MG PO SCH (10:20)
[2018-03-16] MEDS: NORVASC TAB 5 MG PO SCH (10:20)
[2018-03-16] MEDS: ZINC SULFATE PO SCH (10:20)
[2018-03-16] MEDS: CIPRO TAB 500 MG PO SCH ×2 (10:20→20:51)
[2018-03-16] MEDS: COZAAR PO SCH (10:20)
[2018-03-16] MEDS: PERCOCET TAB 5/325 MG PO PRN ×2 (12:41→21:10)
[2018-03-16] MEDS: SYNTHROID 50 mcg TAB PO SCH (15:52)
[2018-03-16] MEDS: SNACK - Diabetic Appropriate PO SCH (20:50)
[2018-03-16] MEDS: COLACE CAP 100 MG PO SCH (20:51)
[2018-03-16] MEDS: MILK OF MAGNESIA PO SCH (20:52)
[2018-03-17 05:18] LABS: BASOPHILS # (AUTO) 0.1 X10^3/uL (0.0-0.1); BASOPHILS % (AUTO) 0.8 % (0.2-1.0); EOSINOPHILS # (AUTO) 0.4 x10^3/uL (0.0-0.2); EOSINOPHILS % (AUTO) 5.5 % (0.9-2.9); HEMATOCRIT 30.5 % (36.0-47.0); HEMOGLOBIN 10.1 g/dL (12.0-16.0); LYMPHOCYTES # (AUTO) 2.7 X10^3/uL (1.3-2.9); LYMPHOCYTES % (AUTO) 33.2 % (21.0-51.0); MEAN CORPUSCULAR HEMOGLOBIN 30.5 pg (27.0-34.0); MEAN CORPUSCULAR VOLUME 92.3 fL (80.0-100.0); MEAN PLATELET VOLUME 8.8 fL (7.4-11.0); MONOCYTES # (AUTO) 0.6 x10^3/uL (0.3-0.8); MONOCYTES % (AUTO) 7.8 % (0.0-13.0); NEUTROPHILS # (AUTO) 4.3 x10^3/uL (2.2-4.8); NEUTROPHILS % (AUTO) 52.7 % (42.0-75.0); PLATELET COUNT 353 X10^3/uL (150.0-450.0); RED CELL DISTRIBUTION WIDTH 13.8 % (11.6-16.5); WHITE BLOOD COUNT 8.1 X10^3/uL (3.6-10.0)
[2018-03-17 05:26] LABS: ALBUMIN 2.9 g/dL (3.4-5.0); CALCIUM 8.2 mg/dL (8.5-10.1); CARBON DIOXIDE 27.6 mmol/L (21-32); COR CA(FOR HYPOALB) 9.1 mg/dL (8.5-10.1); CREATININE 1.24 mg/dL (0.55-1.02); TOTAL PROTEIN 6.4 g/dL (6.4-8.2)
[2018-03-17] MEDS ORDERED: KLOR-CON PO PRN (06:32)
[2018-03-17] MEDS ORDERED: POTASSIUM CHLORIDE LIQ 20 MEQ UDC PO PRN (06:32)
[2018-03-17] MEDS ORDERED: MICRO K EXTEN CAP 10 MEQ PO PRN (06:32)
[2018-03-17] MEDS ORDERED: K-RIDER 10 MEQ/NS 100 ML 10 MEQ/100 ML BAG IV PRN (06:32)
[2018-03-17] MEDS ORDERED: POTASSIUM CHL 60 MEQ/NS 0.45% 500 ML IV PRN (06:32)
[2018-03-17] MEDS ORDERED: POTASSIUM CHL 40 MEQ/NS 0.45% 500 ML IV PRN (06:32)
[2018-03-17] MEDS: NORVASC TAB 5 MG PO SCH (08:45)
[2018-03-17] MEDS: ZINC SULFATE PO SCH (08:45)
[2018-03-17] MEDS: COZAAR PO SCH (08:45)
[2018-03-17] MEDS: CIPRO TAB 500 MG PO SCH ×2 (08:46→20:41)
[2018-03-17] MEDS: ASPIRIN EC 81 MG PO SCH (08:46)
[2018-03-17] MEDS: VITAMIN C PO SCH (08:46)
[2018-03-17] MEDS: K-DUR TAB 20 MEQ PO PRN (13:40)
[2018-03-17] MEDS: SYNTHROID 50 mcg TAB PO SCH (16:08)
[2018-03-17] MEDS: COLACE CAP 100 MG PO SCH (20:41)
[2018-03-17] MEDS: PERCOCET TAB 5/325 MG PO PRN (20:41)
[2018-03-17] MEDS: MILK OF MAGNESIA PO SCH (20:42)
[2018-03-17] MEDS: SNACK - Diabetic Appropriate PO SCH (20:42)
[2018-03-18] MEDS: K-DUR TAB 20 MEQ PO PRN (05:56)
[2018-03-18] MEDS: ZINC SULFATE PO SCH (08:19)
[2018-03-18] MEDS: NORVASC TAB 5 MG PO SCH (08:19)
[2018-03-18] MEDS: ASPIRIN EC 81 MG PO SCH (08:19)
[2018-03-18] MEDS: COZAAR PO SCH (08:19)
[2018-03-18] MEDS: CIPRO TAB 500 MG PO SCH ×2 (08:19→20:25)
[2018-03-18] MEDS: VITAMIN C PO SCH (08:19)
[2018-03-18] MEDS: SYNTHROID 50 mcg TAB PO SCH (16:43)
[2018-03-18] MEDS ORDERED: VALIUM PO PRN (19:19)
--- NOTE | 2018-03-18 19:32 | PCM.PROG ---
Progress Note - Progress Note for Day of Date of Exam: 03/17/18 - Subjective Subjective: MS. GUTIERRES IS A 82 YEAR OLD PATIENT OF OURS WHO WAS ADMITTED FOR SWINGBED REHAB THERAPY ON 03/06 DUE TO RLE FRACTURE AND UTI. PT HAS BEEN ON IV ATBX FOR UTI AND CONTINUES TO RECEIVE PHYSICAL THERAPY. SHE IS ALERT AND ORIENTED THIS MORNING. SHE DENIES PAIN THIS MORNING. PHYSICAL THERAPY REPORTS THAT SHE IS TOLERATING AND PARTICIPATING WELL WITH PT. ABNORMAL LABS TODAY INCLUDE THE FOLLOWING: RBC 3.30, HGB 10.1, HCT 30.5, BUN 24, CREATININE 1.24, GLUCOSE 183, CALCIUM 8.2, ALBUMIN 2.9. WE WILL CONTINUE WITH CURRENT PLAN OF CARE AND PHYSICAL THERAPY TODAY. WE WILL CONTINUE TO MONITOR PATIENT. - Past Medical Family Social History Past Med/Fam/Surg Hx: No changes since H&P Allergies: Allergies atorvastatin [From Lipitor] Allergy (Verified 03/02/18 21:25) codeine Allergy (Verified 03/02/18 21:25) duloxetine [From Cymbalta] Allergy (Verified 03/02/18 21:25) sulfamethoxazole [From Bactrim] Allergy (Verified 03/02/18 21:25) trimethoprim [From Bactrim] Allergy (Verified 03/02/18 21:25) CI PIGMENT BLUE 63 Allergy (Uncoded 03/02/18 21:25) - Review of Systems ROS: No change since H&P - Vital Signs and I&O's Vital Signs: Temperature 97.9 F Pulse Rate [Right Brachial] 72 Pulse Rate [Left Brachial] 63 Pulse Rate [Brachial] 63 Respiratory Rate 20 Blood Pressure [Left Arm] 186/79 Blood Pressure [Right Arm] 172/75 Blood Pressure 177/77 O2 Sat by Pulse Oximetry 99 Intake and Output: Intake & Output 03/16/18 03/17/18 03/18/18 03/19/18 11:59 11:59 11:59 11:59 Intake Total 1266 / 1266 990 / 990 470 / 470 600 / 600 Balance 1266 / 1266 990 / 990 470 / 470 600 / 600 - Physical Exam Oriented: Normal Eyes: Normal Ear: Normal Nose: Normal Throat: Dry Respiratory: Diminished Cardiovascular: Irregular. negative: Edema Auscultation: Bowel Sounds: Normal Tenderness: Normal Skin: Decreased Turgur Musculoskeletal: Right, Ankle, Foot, Swelling, Tender, Motor Deficit, Sensory Deficit, Instability Psychiatric: Anxiety Mood Description: Calm Affect: Depressed Speech Pattern: Clear, Appropriate - Laboratory and Diagnostics Result Diagrams: 03/17/18 04:11 03/17/18 04:11 Labs: Laboratory WBC 8.1 X10^3/uL (3.6-10.0) 03/17/18 04:11 RBC 3.30 X10^6/uL (3.5-5.4) L 03/17/18 04:11 Hgb 10.1 g/dL (12.0-16.0) L 03/17/18 04:11 Hct 30.5 % (36.0-47.0) L 03/17/18 04:11 MCV 92.3 fL (80.0-100.0) 03/17/18 04:11 MCH 30.5 pg (27.0-34.0) 03/17/18 04:11 MCHC 33.0 g/dL (33.0-35.0) 03/17/18 04:11 RDW 13.8 % (11.6-16.5) 03/17/18 04:11 Plt Count 353 X10^3/uL (150.0-450.0) 03/17/18 04:11 MPV 8.8 fL (7.4-11.0) 03/17/18 04:11 Neut % (Auto) 52.7 % (42.0-75.0) 03/17/18 04:11 Lymph % (Auto) 33.2 % (21.0-51.0) 03/17/18 04:11 [place] % (Auto) 7.8 % (0.0-13.0) 03/17/18 04:11 Eos % (Auto) 5.5 % (0.9-2.9) H 03/17/18 04:11 Baso % (Auto) 0.8 % (0.2-1.0) 03/17/18 04:11 Neut # (Auto) 4.3 x10^3/uL (2.2-4.8) 03/17/18 04:11 Lymph # (Auto) 2.7 X10^3/uL (1.3-2.9) 03/17/18 04:11 [place] # (Auto) 0.6 x10^3/uL (0.3-0.8) 03/17/18 04:11 Eos # (Auto) 0.4 x10^3/uL (0.0-0.2) H 03/17/18 04:11 Baso # (Auto) 0.1 X10^3/uL (0.0-0.1) 03/17/18 04:11 Absolute Nucleated RBC 0.0 /100WBC 03/17/18 04:11 Sodium 140 mmol/L (136-145) 03/17/18 04:11 Corrected Sodium 142 mmol/L (136-145) 03/17/18 04:11 Potassium 3.5 mmol/L (3.5-5.1) 03/17/18 04:11 Chloride 102 mmol/L (98-107) 03/17/18 04:11 Carbon Dioxide 27.6 mmol/L (21-32) 03/17/18 04:11 BUN 24 mg/dL (7-18) H 03/17/18 04:11 Creatinine 1.24 mg/dL (0.55-1.02) H 03/17/18 04:11 Est GFR (MDRD) Af Amer 53 (>60) L 03/17/18 04:11 Est GFR (MDRD) Non-Af 44 (>60) L 03/17/18 04:11 Glucose 183 mg/dL (65-99) H 03/17/18 04:11 POC Glucose (mg/dL) 203 mg/dL (65-99) H 03/18/18 17:18 Calcium 8.2 mg/dL (8.5-10.1) L 03/17/18 04:11 Corrected Calcium 9.1 mg/dL (8.5-10.1) 03/17/18 04:11 Magnesium 2.2 mg/dL (1.7-2.9) 03/17/18 04:11 Total Bilirubin 0.30 mg/dL (0.2-1.0) 03/17/18 04:11 AST 18 Units/L (15-37) 03/17/18 04:11 ALT 17 Units/L (12-78) 03/17/18 04:11 Alkaline Phosphatase 90 Units/L (46-116) 03/17/18 04:11 Total Protein 6.4 g/dL (6.4-8.2) 03/17/18 04:11 Albumin 2.9 g/dL (3.4-5.0) L 03/17/18 04:11 Globulin 3.5 g/dL (2.5-4.5) 03/17/18 04:11 Albumin/Globulin Ratio 0.8 Ratio (1.1-2.1) L 03/17/18 04:11 - Plan (1) Fracture of right ankle Status: Acute Qualifiers: Fracture type: closed Fracture healing: with routine healing Plan: CONTINUE LABS PER SWINGBED PROTOCOL, PHYSICAL THERAPY. BP CONTROL, PAIN CONTROL. FALL RISK DUE TO DEMENTIA, CONTINUE IV ATBX FOR UTI. ENCOURAGE ORAL HYDRATION, PULOMARY TOILETING, IS (2) CAD (coronary artery disease) Status: Chronic Qualifiers: Coronary Disease-Associated Artery/Lesion type: [place] artery [place] vs. transplanted heart: [place] heart Associated angina: with unspecified angina Qualified Code(s): I25.119 - Atherosclerotic heart disease of [place] coronary artery with unspecified angina pectoris (3) Hypertension Status: Chronic Qualifiers: Hypertension type: essential hypertension Qualified Code(s): I10 - Essential (primary) hypertension (4) Dementia Status: Chronic Qualifiers: Dementia type: Alzheimer's disease Alzheimer's disease onset: unspecified onset Dementia behavioral disturbance: without behavioral disturbance Qualified Code(s): G30.9 - Alzheimer's disease, unspecified; F02.80 - Dementia in other diseases classified elsewhere without behavioral disturbance (5) Generalized anxiety disorder Status: Chronic (6) Depression Status: Chronic Qualifiers: Depression Type: major depressive disorder Active/Remission status: currently active Major depression episode severity: moderate
[2018-03-18] MEDS: COLACE CAP 100 MG PO SCH (20:25)
[2018-03-18] MEDS: MILK OF MAGNESIA PO SCH (20:25)
[2018-03-18] MEDS: SNACK - Diabetic Appropriate PO SCH (20:26)
[2018-03-18] MEDS: PERCOCET TAB 5/325 MG PO PRN (20:33)
[2018-03-19] MEDS: NORVASC TAB 5 MG PO SCH (08:46)
[2018-03-19] MEDS: ASPIRIN EC 81 MG PO SCH (08:46)
[2018-03-19] MEDS: COZAAR PO SCH (08:46)
[2018-03-19] MEDS: ZINC SULFATE PO SCH (08:46)
[2018-03-19] MEDS: VITAMIN C PO SCH (08:46)
[2018-03-19] MEDS: CIPRO TAB 500 MG PO SCH ×2 (08:46→20:57)
[2018-03-19] MEDS ORDERED: TORADOL 60 MG VIAL IM ONE (09:43)
[2018-03-19] MEDS: CLARITIN-D 12 HOUR TAB PO SCH (10:15)
[2018-03-19] MEDS ORDERED: NS 1/2 1000 ML IV 1,000 ML IV ONE (12:17)
[2018-03-19] MEDS: SYNTHROID 50 mcg TAB PO SCH (16:41)
[2018-03-19] MEDS: SNACK - Diabetic Appropriate PO SCH (20:00)
[2018-03-19] MEDS: OXYBUTYNIN CHLORIDE ER PO SCH (20:57)
[2018-03-19] MEDS: COLACE CAP 100 MG PO SCH (20:57)
[2018-03-19] MEDS: EFFEXOR XR 150 MG CAP PO SCH (20:58)
[2018-03-19] MEDS: PLAVIX PO SCH (21:00)
[2018-03-19] MEDS: MILK OF MAGNESIA PO SCH (21:00)
[2018-03-19] MEDS: CORDARONE TAB 200 MG PO SCH (21:00)
[2018-03-19] MEDS ORDERED: LIPITOR TAB 20 MG PO SCH ×2 (21:00)
[2018-03-20 05:15] LABS: BASOPHILS # (AUTO) 0.1 X10^3/uL (0.0-0.1); BASOPHILS % (AUTO) 1.1 % (0.2-1.0); EOSINOPHILS # (AUTO) 0.3 x10^3/uL (0.0-0.2); EOSINOPHILS % (AUTO) 4.7 % (0.9-2.9); HEMATOCRIT 28.8 % (36.0-47.0); HEMOGLOBIN 9.9 g/dL (12.0-16.0); LYMPHOCYTES # (AUTO) 1.9 X10^3/uL (1.3-2.9); LYMPHOCYTES % (AUTO) 28.7 % (21.0-51.0); MEAN CORPUSCULAR HEMOGLOBIN 31.6 pg (27.0-34.0); MEAN CORPUSCULAR HGB CONC 34.3 g/dL (33.0-35.0); MEAN CORPUSCULAR VOLUME 92.1 fL (80.0-100.0); MEAN PLATELET VOLUME 8.8 fL (7.4-11.0); MONOCYTES # (AUTO) 0.4 x10^3/uL (0.3-0.8); MONOCYTES % (AUTO) 6.1 % (0.0-13.0); NEUTROPHILS # (AUTO) 3.9 x10^3/uL (2.2-4.8); NEUTROPHILS % (AUTO) 59.4 % (42.0-75.0); PLATELET COUNT 326 X10^3/uL (150.0-450.0); RED BLOOD COUNT 3.12 X10^6/uL (3.5-5.4); RED CELL DISTRIBUTION WIDTH 13.7 % (11.6-16.5); WHITE BLOOD COUNT 6.5 X10^3/uL (3.6-10.0)
[2018-03-20 05:17] LABS: ALBUMIN 2.9 g/dL (3.4-5.0); CALCIUM 8.7 mg/dL (8.5-10.1); CARBON DIOXIDE 27.6 mmol/L (21-32); COR CA(FOR HYPOALB) 9.6 mg/dL (8.5-10.1); CREATININE 1.53 mg/dL (0.55-1.02); TOTAL PROTEIN 6.3 g/dL (6.4-8.2)
[2018-03-20] MEDS: COZAAR PO SCH (09:01)
[2018-03-20] MEDS: CIPRO TAB 500 MG PO SCH ×2 (09:01→22:07)
[2018-03-20] MEDS: VITAMIN C PO SCH (09:01)
[2018-03-20] MEDS: ASPIRIN EC 81 MG PO SCH (09:01)
[2018-03-20] MEDS: NORVASC TAB 5 MG PO SCH (09:01)
[2018-03-20] MEDS: ZINC SULFATE PO SCH (09:06)
[2018-03-20] MEDS: CLARITIN-D 12 HOUR TAB PO SCH (09:15)
[2018-03-20] MEDS: PERCOCET TAB 5/325 MG PO PRN (10:44)
[2018-03-20] MEDS: SYNTHROID 50 mcg TAB PO SCH (16:56)
[2018-03-20] MEDS: OXYBUTYNIN CHLORIDE ER PO SCH (22:07)
[2018-03-20] MEDS: SNACK - Diabetic Appropriate PO SCH (22:08)
[2018-03-20] MEDS: PLAVIX PO SCH (22:08)
[2018-03-20] MEDS: EFFEXOR XR 150 MG CAP PO SCH (22:08)
[2018-03-20] MEDS: COLACE CAP 100 MG PO SCH (22:09)
[2018-03-20] MEDS: MILK OF MAGNESIA PO SCH (22:09)
[2018-03-21] MEDS: CORDARONE TAB 200 MG PO SCH ×3 (00:04→22:32)
[2018-03-21] MEDS: ZINC SULFATE PO SCH (09:28)
[2018-03-21] MEDS: ASPIRIN EC 81 MG PO SCH (09:28)
[2018-03-21] MEDS: COZAAR PO SCH ×2 (09:28→17:35)
[2018-03-21] MEDS: CIPRO TAB 500 MG PO SCH ×2 (09:29→20:58)
[2018-03-21] MEDS: VITAMIN C PO SCH (09:30)
[2018-03-21] MEDS: CLARITIN-D 12 HOUR TAB PO SCH (09:37)
[2018-03-21] MEDS: SYNTHROID 50 mcg TAB PO SCH (17:30)
[2018-03-21] MEDS: NORVASC TAB 5 MG PO SCH (17:35)
[2018-03-21] MEDS: OXYBUTYNIN CHLORIDE ER PO SCH (20:57)
[2018-03-21] MEDS: COLACE CAP 100 MG PO SCH (20:58)
[2018-03-21] MEDS: EFFEXOR XR 150 MG CAP PO SCH (20:58)
[2018-03-21] MEDS: PLAVIX PO SCH (20:58)
[2018-03-21] MEDS: SNACK - Diabetic Appropriate PO SCH (21:44)
[2018-03-21] MEDS: MILK OF MAGNESIA PO SCH (21:44)
[2018-03-22] MEDS: VITAMIN C PO SCH (09:02)
[2018-03-22] MEDS: ASPIRIN EC 81 MG PO SCH (09:02)
[2018-03-22] MEDS: CIPRO TAB 500 MG PO SCH ×2 (09:02→20:49)
[2018-03-22] MEDS: ZINC SULFATE PO SCH (09:02)
[2018-03-22] MEDS: CLARITIN-D 12 HOUR TAB PO SCH (09:04)
[2018-03-22 16:39] LABS: BILIRUBIN,URINE NEGATIVE (NEGATIVE); BLOOD/HEMOGLOBIN,URINE 1+ (NEGATIVE); GLUCOSE, URINE NEGATIVE (NEGATIVE); KETONES,URINE NEGATIVE (NEGATIVE); LEUKOCYTE ESTERASE ,URINE NEGATIVE (NEGATIVE); NITRITES,URINE NEGATIVE (NEGATIVE); PROTEIN,URINE 1+ (NEGATIVE); UROBILINOGEN,URINE NORMAL (NORMAL)
[2018-03-22 16:48] LABS: APPEARANCE,URINE CLEAR (CLEAR); COLOR,URINE YELLOW (YELLOW)
[2018-03-22 16:58] LABS: AMORPHOUS SEDIMENT,UR TRACE /HPF (NEGATIVE); BACTERIA,URINE NEGATIVE /HPF (NEGATIVE); RBC,URINE NONE SEEN /HPF (NONE SEEN); SQUAMOUS EPITHELIAL CELL,UR RARE /HPF (NEGATIVE)
[2018-03-22] MEDS: SYNTHROID 50 mcg TAB PO SCH (17:14)
[2018-03-22] MEDS: COZAAR PO SCH (18:16)
[2018-03-22] MEDS: NORVASC TAB 5 MG PO SCH (18:17)
[2018-03-22] MEDS: PLAVIX PO SCH (20:49)
[2018-03-22] MEDS: COLACE CAP 100 MG PO SCH (20:49)
[2018-03-22] MEDS: EFFEXOR XR 150 MG CAP PO SCH (20:49)
[2018-03-22] MEDS: CORDARONE TAB 200 MG PO SCH (20:49)
[2018-03-22] MEDS: MILK OF MAGNESIA PO SCH (20:51)
[2018-03-22] MEDS: SNACK - Diabetic Appropriate PO SCH (20:54)
[2018-03-23 05:29] LABS: BASOPHILS # (AUTO) 0.1 X10^3/uL (0.0-0.1); BASOPHILS % (AUTO) 0.8 % (0.2-1.0); EOSINOPHILS # (AUTO) 0.3 x10^3/uL (0.0-0.2); EOSINOPHILS % (AUTO) 4.5 % (0.9-2.9); HEMATOCRIT 27.9 % (36.0-47.0); HEMOGLOBIN 9.4 g/dL (12.0-16.0); LYMPHOCYTES # (AUTO) 2.4 X10^3/uL (1.3-2.9); LYMPHOCYTES % (AUTO) 34.8 % (21.0-51.0); MEAN CORPUSCULAR HEMOGLOBIN 31.1 pg (27.0-34.0); MEAN CORPUSCULAR HGB CONC 33.7 g/dL (33.0-35.0); MEAN CORPUSCULAR VOLUME 92.3 fL (80.0-100.0); MONOCYTES # (AUTO) 0.5 x10^3/uL (0.3-0.8); MONOCYTES % (AUTO) 7.6 % (0.0-13.0); NEUTROPHILS # (AUTO) 3.6 x10^3/uL (2.2-4.8); NEUTROPHILS % (AUTO) 52.3 % (42.0-75.0); PLATELET COUNT 276 X10^3/uL (150.0-450.0); RED BLOOD COUNT 3.02 X10^6/uL (3.5-5.4); RED CELL DISTRIBUTION WIDTH 13.6 % (11.6-16.5); WHITE BLOOD COUNT 6.8 X10^3/uL (3.6-10.0)
[2018-03-23 05:42] LABS: ALANINE AMINOTRANSFERASE 16 Units/L (12-78); ALBUMIN 3.1 g/dL (3.4-5.0); ALKALINE PHOSPHATASE 82 Units/L (46-116); ASPARTATE AMINO TRANSFERASE 19 Units/L (15-37); BLOOD UREA NITROGEN 37 mg/dL (7-18); CALCIUM 8.4 mg/dL (8.5-10.1); CARBON DIOXIDE 26.5 mmol/L (21-32); CHLORIDE 108 mmol/L (98-107); COR CA(FOR HYPOALB) 9.1 mg/dL (8.5-10.1); CREATININE 1.24 mg/dL (0.55-1.02); SODIUM 143 mmol/L (136-145); TOTAL PROTEIN 6.4 g/dL (6.4-8.2); eGFR NON BLACK RACES 44 (>60)
[2018-03-23] MEDS: ASPIRIN EC 81 MG PO SCH (08:03)
[2018-03-23] MEDS: VITAMIN C PO SCH (08:04)
[2018-03-23] MEDS: CLARITIN-D 12 HOUR TAB PO SCH (08:04)
[2018-03-23] MEDS: COZAAR PO SCH (08:04)
[2018-03-23] MEDS: NORVASC TAB 5 MG PO SCH (08:04)
[2018-03-23] MEDS: ZINC SULFATE PO SCH (08:04)
[2018-03-23] MEDS: CIPRO TAB 500 MG PO SCH (08:04)
[2018-03-23] MEDS: SYNTHROID 50 mcg TAB PO SCH (15:58)
[2018-03-23] MEDS: CORDARONE TAB 200 MG PO SCH (20:49)
[2018-03-23] MEDS: EFFEXOR XR 150 MG CAP PO SCH (20:50)
[2018-03-23] MEDS: COLACE CAP 100 MG PO SCH (20:50)
[2018-03-23] MEDS: PLAVIX PO SCH (20:50)
[2018-03-23] MEDS: SNACK - Diabetic Appropriate PO SCH (22:47)
[2018-03-23] MEDS: MILK OF MAGNESIA PO SCH (22:47)
[2018-03-23] MEDS: PERCOCET TAB 5/325 MG PO PRN (22:49)
[2018-03-24] MEDS: NORVASC TAB 5 MG PO SCH (08:37)
[2018-03-24] MEDS: COZAAR PO SCH (08:37)
[2018-03-24] MEDS: CLARITIN-D 12 HOUR TAB PO SCH (08:37)
[2018-03-24] MEDS: ZINC SULFATE PO SCH (08:37)
[2018-03-24] MEDS: ASPIRIN EC 81 MG PO SCH (08:37)
[2018-03-24] MEDS: VITAMIN C PO SCH (08:37)
[2018-03-24 09:59] VITALS: BP 130/63
--- NOTE | 2018-04-09 20:37 | DR.CARTERD ---
- Discharge Summary for: Discharge Summary for Date of:: 03/24/18 - Admission Date Date of Admission: 03/06/18 - Admission Diagnoses Admission Diagnosis: (1) Fracture of right ankle (2) UTI (urinary tract infection) (3) CAD (coronary artery disease) (4) Hypertension (5) Dementia (6) Generalized anxiety disorder 7) Depression - Discharge Date Discharge Date: 03/24/18 - Discharge Diagnoses Discharge Diagnosis: (1) Fracture of right ankle (2) UTI (urinary tract infection) (3) CAD (coronary artery disease) (4) Hypertension (5) Dementia (6) Generalized anxiety disorder 7) Depression - Hospital Course Hospital Course: DAY ONE, 82 WF ADMITTED FOR SWINGBED REHAB THERAPY ON DUE TO RLE FRACTURE AND UTI. PATIENT STARTED ON IV ANTIBIOTIC THERAPY. WE CONTINUED TO MONITOR AND TREAT. DAY FOUR, 82 WF ADMITTED FOR SWINGBED REHAB THERAPY ON 03/06 DUE TO RLE FRACTURE AND UTI. PT HAS BEEN ON IV ATBX FOR UTI, AND WE CONTINUED HER HOME BP MEDICATION. NURSING STAFFF REPORTED PT HAS CONTINUED WITH ELEVATED BLOOD PRESSURE, HAS BEEN RECEIVING PO LOSARTAN 100MG DAILY. WE ADDED NORVASC 5MG PO DAILY FOR BP CONTROL. FAMILY AT BEDSIDE AND REPORTED CONTINUED CONFUSION. PT HAD CT HEAD ON ADMISSION WITH CHRONIC FINDINGS, REVIEWED LABS AND DIAGNOSITICS WITH FAMILY. PT ORIENTED TO SELF THIS AM AND LOCALIZED PAIN TO RLE. WE CONTINUED TO MONITOR. DAY SIX, 82 WF ADMITTED FOR SWINGBED REHAB THERAPY ON 03/06 DUE TO RLE FRACTURE AND UTI. PT HAS BEEN ON IV ATBX FOR UTI AND CONTINUED TO RECEIVE PHYSICAL THERAPY. FAMILY AT BEDSIDE AND REPORTED THAT CONFUSION IS IMPROVING. SHE WAS ALERT AND ORIENTED THIS MORNING. SHE REPORTED PAIN TO THE RLE TODAY. HER BUN AND CREATININE WERE INCREASING. WE ENCOURAGED INCREASED PO FLUIDS AND CONTINUED WITH CURRENT PLAN OF CARE TODAY. DAY NINE, 82 WF, PATIENT OF OURS WHO WAS ADMITTED FOR SWINGBED REHAB THERAPY ON 03/06 DUE TO RLE FRACTURE AND UTI. PT HAS BEEN ON IV ATBX FOR UTI AND CONTINUED TO RECEIVE PHYSICAL THERAPY. HER BLOOD PRESSURE AND KIDNEY FUNCTION HAVE BEEN SLIGHTLY ELEVATED. SHE WAS ALERT AND ORIENTED THIS MORNING. SHE REPORTED PAIN TO THE RLE TODAY. WE CONTINUED TO ENCOURAGE ORAL FLUID INTAKE. WE ALSO INCREASED HER AMLODIPINE TO 10MG PO DAILY. WE CONTINUED WITH CURRENT PLAN OF CARE TODAY AND CONTINUED TO MONITOR PATIENT. DAY TWELVE, MS. GUTIERRES IS A 82 YEAR OLD PATIENT OF OURS WHO WAS ADMITTED FOR SWINGBED REHAB THERAPY ON 03/06 DUE TO RLE FRACTURE AND UTI. PT HAS BEEN ON IV ATBX FOR UTI AND CONTINUED TO RECEIVE PHYSICAL THERAPY. SHE WAS ALERT AND ORIENTED THIS MORNING. SHE DENIED PAIN THIS MORNING. PHYSICAL THERAPY REPORTED THAT SHE IS TOLERATING AND PARTICIPATING WELL WITH PT. ABNORMAL LABS TODAY INCLUDED THE FOLLOWING: RBC 3.30, HGB 10.1, HCT 30.5, BUN 24, CREATININE 1.24, GLUCOSE 183, CALCIUM 8.2, ALBUMIN 2.9. WE CONTINUED WITH CURRENT PLAN OF CARE AND PHYSICAL THERAPY TODAY. WE CONTINUED TO MONITOR PATIENT. DAY FIFTEEN, PATIENT CONTINUED TO WOTK WITH PHYSICAL THERAPY. WE CONTINUED WITH CURRENT PLAN OF CARE. WE CONTINUED TO MONITOR PATIENT. DAY , PATIENT ALERT AND ORIENTED ON MORNING ROUNDS. NO COMPLAINTS WERE VOICED THIS AM. NO SIGNS AND SYMPTOMS OF ACUTE DISTRESS WERE NOTED. CASE MANAGEMENT HAS SET PATIENT UP WITH HOME HEALTH NURSING FOR CONTINUATION OF THERAPY. LABS WERE WITHIN NORMAL RANGE FOR PATIENT. VITALS WERE STABLE. WE PLANNED FOR DISCHARGE. INSTRUCTIONS FOR MEDICATIONS AND FOLLOW UP WERE DISCUSSED WITH PATIENT AND FAMILY BOTH VOICED UNDERSTANDING. PATIENT DISCHARGED HOME IN STABLE CONDITION WITH FAMILY. - Discharge Medications Discharge Medications: Prescriptions: Ambulatory Orders amiodarone 200 mg PO HS 10/07/12 aspirin 81 mg PO HS 04/05/14 Oxybutynin Chloride [Ditropan XL] 5 mg PO HS 12/03/14 Venlafaxine HCl [Venlafaxine HCl ER] 1 cap PO HS 06/04/16 atorvastatin [Lipitor] 1 tab PO HS 06/04/16 clopidogrel 150 mg PO HS 03/03/18 diazepam 2 mg PO HS 03/03/18 levothyroxine 50 mcg PO DAILY 03/03/18 losartan 100 mg PO HS 03/03/18 - Discharge Disposition Discharge Disposition: PATIENT TO FOLLOW UP IN OUR OFFICE IN ONE WEEK. PATIENT TO FOLLOW UP WITH DR. Maria C RAZO ON NEXT AVAILABLE APPOINTMENT TIME.
== END 2018-03-24 11:40 | disposition home health service (06) | DRG 560 ==
LOC: MED/SURG 13:07
PROVIDERS: ADMIT Internal Medicine; ATTEND Internal Medicine
DX: F02.80 Dementia in other diseases classified elsewhere, unspecified severity, without behavioral disturbance, psychotic disturbance, mood disturbance, and anxiety; N30.00 Acute cystitis without hematuria; G30.8 Other Alzheimer's disease; I10 Essential (primary) hypertension; F32.89 Other specified depressive episodes; W18.39XD Other fall on same level, subsequent encounter; F41.8 Other specified anxiety disorders; S82.64XD Nondisplaced fracture of lateral malleolus of right fibula, subsequent encounter for closed fracture with routine healing; I25.10 Atherosclerotic heart disease of native coronary artery without angina pectoris; Z51.89 Encounter for other specified aftercare; R26.89 Other abnormalities of gait and mobility
CPT/HCPCS: 36415; 73610; 80053; 81001; 83735; 85025; 97110; 97112; 97116; 97163; 97166; 97530; 97535; A4222; J0696; J1815; J1885

== ENCOUNTER 2018-06-04 12:39 | Inpatient (IN) ==
[2018-06-04 15:30] LABS: BASOPHILS % (AUTO) 0.5 % (0.2-1.0); EOSINOPHILS # (AUTO) 0.3 x10^3/uL (0.0-0.2); EOSINOPHILS % (AUTO) 4.5 % (0.9-2.9); HEMATOCRIT 33.2 % (36.0-47.0); HEMOGLOBIN 11.1 g/dL (12.0-16.0); LYMPHOCYTES % (AUTO) 40.4 % (21.0-51.0); MEAN CORPUSCULAR HGB CONC 33.4 g/dL (33.0-35.0); MEAN CORPUSCULAR VOLUME 89.7 fL (80.0-100.0); MEAN PLATELET VOLUME 9.1 fL (7.4-11.0); MONOCYTES # (AUTO) 0.6 x10^3/uL (0.3-0.8); MONOCYTES % (AUTO) 7.6 % (0.0-13.0); NEUTROPHILS # (AUTO) 3.5 x10^3/uL (2.2-4.8); PLATELET COUNT 172 X10^3/uL (150.0-450.0); RED CELL DISTRIBUTION WIDTH 14.6 % (11.6-16.5); WHITE BLOOD COUNT 7.5 X10^3/uL (3.6-10.0)
[2018-06-04] MEDS ORDERED: NS 1000 ML 1,000 ML ONE (15:33)
[2018-06-04] MEDS: CATAPRES-TTS-1 TD SCH ×2 (15:37→17:55)
[2018-06-04] MEDS: NS 1000 ML 1,000 ML IV SCH (15:39)
[2018-06-04 15:45] LABS: ALBUMIN 3.3 g/dL (3.4-5.0); CARBON DIOXIDE 29.1 mmol/L (21-32); COR CA(FOR HYPOALB) 9.6 mg/dL (8.5-10.1); CREATININE 1.34 mg/dL (0.55-1.02); TOTAL PROTEIN 6.8 g/dL (6.4-8.2)
[2018-06-04 16:08] VITALS: BMI 24.6
[2018-06-04 17:56] LABS: BILIRUBIN,URINE NEGATIVE (NEGATIVE); BLOOD/HEMOGLOBIN,URINE 1+ (NEGATIVE); GLUCOSE, URINE NEGATIVE (NEGATIVE); KETONES,URINE NEGATIVE (NEGATIVE); LEUKOCYTE ESTERASE ,URINE NEGATIVE (NEGATIVE); NITRITES,URINE NEGATIVE (NEGATIVE); PROTEIN,URINE NEGATIVE (NEGATIVE); UROBILINOGEN,URINE NORMAL (NORMAL)
[2018-06-04 18:08] LABS: APPEARANCE,URINE CLEAR (CLEAR); COLOR,URINE YELLOW (YELLOW); RBC,URINE 0-2 /HPF (NONE SEEN); SQUAMOUS EPITHELIAL CELL,UR RARE /HPF (NEGATIVE)
[2018-06-04 18:09] LABS: BACTERIA,URINE NEGATIVE /HPF (NEGATIVE)
[2018-06-04] MEDS: COLACE CAP 100 MG PO SCH (21:18)
[2018-06-04] MEDS: CORDARONE TAB 200 MG PO SCH (21:18)
[2018-06-04] MEDS: LIPITOR TAB 20 MG PO SCH (21:19)
[2018-06-04] MEDS: COZAAR PO SCH (21:19)
[2018-06-04] MEDS: MILK OF MAGNESIA PO SCH (21:19)
[2018-06-04] MEDS: MACROBID CAP 100 MG EXT REL PO SCH (21:19)
[2018-06-04] MEDS: EFFEXOR XR 150 MG CAP PO SCH (21:19)
[2018-06-04] MEDS: OXYBUTYNIN CHLORIDE ER PO SCH (21:25)
[2018-06-04] MEDS ORDERED: NORMODYNE INJ 100 MG VIAL ONE (23:16)
[2018-06-04] MEDS: NORMODYNE INJ 20 MG VIAL IVP PRN (23:22)
[2018-06-05] MEDS: NS 1000 ML 1,000 ML IV SCH ×3 (05:10→20:06)
[2018-06-05 06:01] LABS: BASOPHILS # (AUTO) 0.1 X10^3/uL (0.0-0.1); BASOPHILS % (AUTO) 0.6 % (0.2-1.0); EOSINOPHILS # (AUTO) 0.3 x10^3/uL (0.0-0.2); EOSINOPHILS % (AUTO) 3.3 % (0.9-2.9); HEMATOCRIT 30.8 % (36.0-47.0); HEMOGLOBIN 10.3 g/dL (12.0-16.0); LYMPHOCYTES % (AUTO) 25.1 % (21.0-51.0); MEAN CORPUSCULAR HEMOGLOBIN 30.3 pg (27.0-34.0); MEAN CORPUSCULAR HGB CONC 33.5 g/dL (33.0-35.0); MEAN CORPUSCULAR VOLUME 90.5 fL (80.0-100.0); MEAN PLATELET VOLUME 9.2 fL (7.4-11.0); MONOCYTES # (AUTO) 0.6 x10^3/uL (0.3-0.8); MONOCYTES % (AUTO) 7.3 % (0.0-13.0); NEUTROPHILS # (AUTO) 5.2 x10^3/uL (2.2-4.8); NEUTROPHILS % (AUTO) 63.7 % (42.0-75.0); PLATELET COUNT 150 X10^3/uL (150.0-450.0); RED CELL DISTRIBUTION WIDTH 14.4 % (11.6-16.5); WHITE BLOOD COUNT 8.1 X10^3/uL (3.6-10.0)
[2018-06-05 06:19] LABS: CALCIUM 8.3 mg/dL (8.5-10.1); CARBON DIOXIDE 28.1 mmol/L (21-32); COR CA(FOR HYPOALB) 9.1 mg/dL (8.5-10.1); CREATININE 1.22 mg/dL (0.55-1.02); TOTAL PROTEIN 6.1 g/dL (6.4-8.2)
[2018-06-05] MEDS: COLACE CAP 100 MG PO SCH ×2 (08:44→20:05)
[2018-06-05] MEDS: MACROBID CAP 100 MG EXT REL PO SCH ×2 (08:44→20:05)
[2018-06-05] MEDS: SYNTHROID 50 mcg TAB PO SCH (08:45)
[2018-06-05] MEDS: VITAMIN D3 PO SCH (08:45)
[2018-06-05] MEDS: PATIENT'S HOME MEDICATION (Biotin [Biotin] 1 MG) PO SCH (08:46)
--- NOTE | 2018-06-05 09:20 | CT ---
HISTORY: Fall, subdural hematoma Study: CT brain without contrast Comparison: 06/03/2018 Technique: Multiple axial images of the brain were obtained from the skull base to the vertex without administration of IV contrast. Findings: Focal region of increased density within the left parafalcine region of the left frontal lobe is noted consistent with intraparenchymal hematoma and contusion. Continued follow-up to complete resolution will be needed. Surrounding parenchymal edema is noted within the left frontal lobe. This has increased since prior examination. Subdural hematoma overlying the left tentorium is again observed centrally stable measuring 6 mm in greatest thickness. This best seen on image 15 of series 4. A chronic appearing lacunar infarct within the left basal ganglia is observed. Diffuse periventricular white matter changes consistent with chronic small vessel ischemia is noted to be present. No alteration in the attenuation of the brain parenchyma can be identified to suggest acute or subacute ischemic change. The ventricular system is symmetric and nondilated. The extracranial structures are grossly unremarkable. 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 Chronic small vessel ischemic changes. Stable subdural hematoma overlying the left tentorium. Stable intraparenchymal hematoma of the left frontal lobe with surrounding parenchymal edema. Reported By:
[2018-06-05] MEDS: NORMODYNE INJ 20 MG VIAL IVP PRN ×2 (12:10→13:25)
[2018-06-05] MEDS: TYLENOL 325 MG TAB PO PRN (13:53)
[2018-06-05] MEDS: COZAAR PO SCH (20:04)
[2018-06-05] MEDS: LIPITOR TAB 20 MG PO SCH (20:05)
[2018-06-05] MEDS: EFFEXOR XR 150 MG CAP PO SCH (20:05)
[2018-06-05] MEDS: MILK OF MAGNESIA PO SCH (20:06)
[2018-06-05] MEDS: OXYBUTYNIN CHLORIDE ER PO SCH (20:06)
[2018-06-05] MEDS: CORDARONE TAB 200 MG PO SCH (20:13)
[2018-06-06 04:56] LABS: BASOPHILS # (AUTO) 0.1 X10^3/uL (0.0-0.1); EOSINOPHILS # (AUTO) 0.3 x10^3/uL (0.0-0.2); EOSINOPHILS % (AUTO) 5.4 % (0.9-2.9); HEMATOCRIT 28.9 % (36.0-47.0); HEMOGLOBIN 9.7 g/dL (12.0-16.0); LYMPHOCYTES % (AUTO) 36.9 % (21.0-51.0); MEAN CORPUSCULAR HEMOGLOBIN 30.5 pg (27.0-34.0); MEAN CORPUSCULAR HGB CONC 33.5 g/dL (33.0-35.0); MEAN PLATELET VOLUME 9.2 fL (7.4-11.0); MONOCYTES # (AUTO) 0.5 x10^3/uL (0.3-0.8); MONOCYTES % (AUTO) 8.9 % (0.0-13.0); NEUTROPHILS # (AUTO) 2.6 x10^3/uL (2.2-4.8); NEUTROPHILS % (AUTO) 47.8 % (42.0-75.0); PLATELET COUNT 140 X10^3/uL (150.0-450.0); RED BLOOD COUNT 3.17 X10^6/uL (3.5-5.4); RED CELL DISTRIBUTION WIDTH 14.7 % (11.6-16.5); WHITE BLOOD COUNT 5.4 X10^3/uL (3.6-10.0)
[2018-06-06 05:10] LABS: ALANINE AMINOTRANSFERASE 21 Units/L (12-78); ALBUMIN 2.6 g/dL (3.4-5.0); ALKALINE PHOSPHATASE 85 Units/L (46-116); ASPARTATE AMINO TRANSFERASE 18 Units/L (15-37); BLOOD UREA NITROGEN 22 mg/dL (7-18); CALCIUM 8.2 mg/dL (8.5-10.1); CARBON DIOXIDE 29.2 mmol/L (21-32); CHLORIDE 110 mmol/L (98-107); COR CA(FOR HYPOALB) 9.3 mg/dL (8.5-10.1); COR NA(FOR HYPERGLY) 145 mmol/L (136-145); CREATININE 1.08 mg/dL (0.55-1.02); SODIUM 144 mmol/L (136-145); TOTAL PROTEIN 5.6 g/dL (6.4-8.2); eGFR NON BLACK RACES 52 (>60)
[2018-06-06] MEDS: VITAMIN D3 PO SCH (07:59)
[2018-06-06] MEDS: SYNTHROID 50 mcg TAB PO SCH (07:59)
[2018-06-06] MEDS: MACROBID CAP 100 MG EXT REL PO SCH ×2 (07:59→20:38)
[2018-06-06] MEDS: COLACE CAP 100 MG PO SCH ×2 (07:59→20:38)
[2018-06-06] MEDS: PATIENT'S HOME MEDICATION (Biotin [Biotin] 1 MG) PO SCH (08:08)
[2018-06-06] MEDS: NS 1000 ML 1,000 ML IV SCH ×3 (08:29→23:11)
[2018-06-06] MEDS ORDERED: CATAPRES-TTS-2 TD SCH (09:08)
[2018-06-06] MEDS ORDERED: CATAPRES-TTS-1 TD ONE (09:36)
--- NOTE | 2018-06-06 10:02 | CT ---
HISTORY: Follow-up subdural hemorrhage Study: CT brain without contrast Comparison: June 05, 2018 and June 03, 2018 Technique: Multiple axial images of the brain were obtained from the skull base to the vertex without administration of IV contrast. AEC was utilized. Findings: Small left frontal cortical contusion is stable to minimally decreased in size as compared to the priors with slightly decreased density compatible with normal evolution and with mild surrounding vasogenic edema but without mass effect or midline shift. Small left tentorial subdural hematoma has slightly decreased in size measuring 12 x 4 mm on today's exam and 15 x 5 mm on the prior again without significant mass effect. No new acute intracranial hemorrhage is identified. No alteration in the attenuation of the brain parenchyma can be identified to suggest acute or subacute ischemic change. There is a background of chronic microvascular ischemic disease with an old left frontal taylor radiata lacunar infarct and mild ex vacuo change involving the left lateral ventricle. Left supraorbital soft tissue swelling and a left frontoparietal craniotomy defect are noted. IMPRESSION: Persistent but slightly improved acute to subacute left frontal cortical contusion and probable posttraumatic intraparenchymal hematoma and left tentorial subdural hematoma without new acute finding. Reported By:
[2018-06-06] MEDS: NORMODYNE INJ 20 MG VIAL IVP PRN ×2 (11:08→14:51)
[2018-06-06] MEDS: TYLENOL 325 MG TAB PO PRN (12:03)
[2018-06-06] MEDS ORDERED: NORVASC TAB 5 MG ONE (15:04)
[2018-06-06] MEDS: NORVASC TAB 5 MG PO SCH (16:12)
[2018-06-06] MEDS: LIPITOR TAB 20 MG PO SCH (20:37)
[2018-06-06] MEDS: COZAAR PO SCH (20:38)
[2018-06-06] MEDS: OXYBUTYNIN CHLORIDE ER PO SCH (20:38)
[2018-06-06] MEDS: MILK OF MAGNESIA PO SCH (20:38)
[2018-06-06] MEDS: EFFEXOR XR 150 MG CAP PO SCH (20:38)
[2018-06-06] MEDS: CORDARONE TAB 200 MG PO SCH (20:40)
[2018-06-07 05:06] LABS: BASOPHILS % (AUTO) 0.7 % (0.2-1.0); EOSINOPHILS # (AUTO) 0.3 x10^3/uL (0.0-0.2); EOSINOPHILS % (AUTO) 4.6 % (0.9-2.9); HEMATOCRIT 32.3 % (36.0-47.0); HEMOGLOBIN 10.7 g/dL (12.0-16.0); LYMPHOCYTES # (AUTO) 2.2 X10^3/uL (1.3-2.9); LYMPHOCYTES % (AUTO) 33.1 % (21.0-51.0); MEAN CORPUSCULAR HGB CONC 33.1 g/dL (33.0-35.0); MEAN CORPUSCULAR VOLUME 90.6 fL (80.0-100.0); MEAN PLATELET VOLUME 9.2 fL (7.4-11.0); MONOCYTES # (AUTO) 0.4 x10^3/uL (0.3-0.8); MONOCYTES % (AUTO) 6.7 % (0.0-13.0); NEUTROPHILS # (AUTO) 3.6 x10^3/uL (2.2-4.8); NEUTROPHILS % (AUTO) 54.9 % (42.0-75.0); PLATELET COUNT 162 X10^3/uL (150.0-450.0); RED BLOOD COUNT 3.57 X10^6/uL (3.5-5.4); RED CELL DISTRIBUTION WIDTH 14.4 % (11.6-16.5); WHITE BLOOD COUNT 6.6 X10^3/uL (3.6-10.0)
[2018-06-07 05:21] LABS: ALANINE AMINOTRANSFERASE 20 Units/L (12-78); ALBUMIN 2.9 g/dL (3.4-5.0); ALKALINE PHOSPHATASE 95 Units/L (46-116); ASPARTATE AMINO TRANSFERASE 18 Units/L (15-37); BLOOD UREA NITROGEN 17 mg/dL (7-18); CALCIUM 8.4 mg/dL (8.5-10.1); CARBON DIOXIDE 29.2 mmol/L (21-32); CHLORIDE 108 mmol/L (98-107); COR CA(FOR HYPOALB) 9.3 mg/dL (8.5-10.1); CREATININE 1.02 mg/dL (0.55-1.02); SODIUM 143 mmol/L (136-145); TOTAL PROTEIN 6.1 g/dL (6.4-8.2); eGFR NON BLACK RACES 55 (>60)
[2018-06-07] MEDS: PATIENT'S HOME MEDICATION (Biotin [Biotin] 1 MG) PO SCH (08:00)
[2018-06-07] MEDS: MACROBID CAP 100 MG EXT REL PO SCH ×2 (08:01→21:00)
[2018-06-07] MEDS: NORVASC TAB 5 MG PO SCH ×3 (08:01→21:00)
[2018-06-07] MEDS: VITAMIN D3 PO SCH (08:01)
[2018-06-07] MEDS: COLACE CAP 100 MG PO SCH ×2 (08:01→21:00)
[2018-06-07] MEDS: SYNTHROID 50 mcg TAB PO SCH (08:01)
[2018-06-07] MEDS ORDERED: CATAPRES-TTS-3 TD SCH (09:00)
--- NOTE | 2018-06-07 09:08 | CT ---
CT brain without contrast Indication: Follow-up subdural hematoma Comparison: CT performed on previous day Technique: Multiple axial images of the brain were obtained from the skull base to the vertex without administration of IV contrast. Findings: No change in left frontal lobe cortical hemorrhagic contusion and small amount of vasogenic edema. No mass effect in this location. The extra-axial fluid within the left posterior cerebral convexity adjacent to the cerebellar tentorium also is unchanged from prior examination. Bilateral periventricular deep white matter hypoattenuation are similar prior examination. No midline shift. No new parenchymal hemorrhage or extra-axial fluid collection identified the ventricles are normal in caliber. Sinuses are clear. Impression: No change from CT exam performed on previous day again demonstrating a small left frontal lobe cortical hemorrhagic contusion with small amount of vasogenic edema. No change in size of extra-axial hemorrhage/subdural hematoma layering along the left cerebellar tentorium. Reported By:
[2018-06-07] MEDS: NS 1000 ML 1,000 ML IV SCH ×2 (15:20→15:21)
--- NOTE | 2018-06-07 18:47 | DR.H&P ---
H&P - History & Physical for Day of: H&P Date: 06/04/18 - Chief Complaint Chief Complaint: FREQUENT FALLS, SLURRED SPEECH, ABNORMAL BRAIN CT - History of Present Illness History of Present Illness: IS A 82 YEAR OLD PATIENT OF OURS. SHE WAS A DIRECT ADMISSION FOR FREQUENT FALLS, SLURRED SPEECH, AND AN ABNORMAL BRAIN CT. OUTPATIENT BRAIN CT REVEALED: Chronic appearing lacunar infarct left basal ganglia. Chronic small vessel ischemic changes. Stable subdural hematoma overlying the left tentorium. Stable intraparenchymal hematoma of the left frontal lobe with surrounding parenchymal edema. ON ADMISSION, VITALS WERE 98.4-68-15-95%-157/72. LABS WERE OBTAINED. ABNORMAL LAB VALUES INCLUDE THE FOLLOWING: HGB 11.1, HCT 33.2, BUN 30, CREATININE 1.34, GLUCOSE 135, ALBUMIN 3.3. URINALYSIS UNREMARKABLE. SHE WAS STARTED ON A CLONIDINE 0.1MG PATCH. WE HELD HER ASPIRIN AND PLAVIX. OTHERWISE, WE PLAN TO FOLLOW UP WITH AM LABS AND CONTINUE TO MONITOR. - Past Medical History Past Medical History: [place], Coronary Artery Disease, Hypertension, Dyslipidemia, Diabetes, Renal Disease, Depression, Anemia, CVA, Seizures, Arthritis, Kidney Stones, Headaches Additional Medical History: Paroxysmal Atrial Fibrillation, TIA, Bronchitis, Pancreatitis, Urinary Tract Infections, Muscle Weakness, Back Pain, Previous Blood Transfusion, Skin Cancer Face - Past Surgical History Surgical History: Angioplasty/Stents, CABG/Valve Surgery, Hysterectomy, Ortho Surgery Additional Surgical History: Hernia Repair, Cataract Removal, Left Sided SHEYLA Holes S/P Subdural Hematoma Evacuation (09/29/13), Skin Cancer Removal - Family History Family Medical History: Diabetes Mellitus, Cancer, [place], Coronary Artery Disease, Heart Failure, Hypertension - Social History Does patient currently use any type of tobacco product: No Have you used tobacco products in the last 12 months: No Type of Tobacco Use: None Alcohol Use: None Drug Use: None - Medications Home Medications: atorvastatin [From Lipitor] Allergy (Verified 03/19/18 12:07) codeine Allergy (Verified 03/02/18 21:25) duloxetine [From Cymbalta] Allergy (Verified 03/02/18 21:25) sulfamethoxazole [From Bactrim] Allergy (Verified 03/02/18 21:25) trimethoprim [From Bactrim] Allergy (Verified 03/02/18 21:25) CI PIGMENT BLUE 63 Allergy (Uncoded 03/02/18 21:25) CONTINUE taking the following medications biotin 1 mg PO QDAY 06/04/18 [History] cholecalciferol (vitamin D3) [Vitamin D3] 1 tab PO DAILY 06/04/18 [History] clonidine [Phlsniwn-HXL-2] 1 patch TRANSDERMAL QWEEK 06/04/18 [History] docusate sodium [Colace] 1 tab PO DAILY 06/04/18 [History] losartan [Cozaar] 1 tab PO HS 06/04/18 [History] nitrofurantoin monohyd/m-cryst [Macrobid] 1 tab PO BID 06/04/18 [History] rivaroxaban [Xarelto] 1 tab PO DAILY 06/04/18 [History] - Review of Systems Constitutional: Weakness Eyes: No Symptoms Reported ENT: No Symptoms Reported Respiratory: No Symptoms Reported Cardiovascular: No Symptoms Reported Gastrointestinal: No Symptoms Reported Genitourinary: No Symptoms Reported Musculoskeletal: No Symptoms Reported Neurological: See HPI, Weakness, Change in Speech, Confusion - Physical Exam Vital Signs: Temperature 99.0 F Pulse Rate [Bilateral Radial] 66 Pulse Rate 62 Respiratory Rate 25 Blood Pressure [Left Arm] 177/74 Blood Pressure [Right Arm] 153/67 Blood Pressure 172/72 O2 Sat by Pulse Oximetry 100 Oriented: Person Eyes: Normal Ear: Normal Nose: Normal Throat: Normal Respiratory: Diminished Throughout Cardiovascular: Normal : Normal Auscultation: Bowel Sounds: Normal Palpation: Normal Tenderness: Normal Skin: Normal Musculoskeletal: Normal Psychiatric: Normal Mood Description: Calm Affect: Normal Speech Pattern: Delayed, Slurred - Assessment/Plan (1) Subdural hematoma, post-traumatic Qualifiers: Encounter type: initial encounter Loss of consciousness presence/duration: without LOC Qualified Code(s): S06.5X0A - Traumatic subdural hemorrhage without loss of consciousness, initial encounter Status: Acute Plan: ADMIT TO ICU, 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
--- NOTE | 2018-06-07 19:46 | PCM.PROG ---
Progress Note - Progress Note for Day of Date of Exam: 06/05/18 - Subjective Subjective: WAS ADMITTED FOR A SUBDURAL HEMATOMA, FREQUENT FALLS, AND SLURRED SPEECH. TODAY, SHE IS ALERT AND ORIENTED, LYING IN BED ON MORNING ROUNDS. SHE DOES CONTINUE WITH SLUGGISH SPEECH. PUPILS PERRLA. 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 HER VITALS THIS MORNING ARE 98.9-62-25-100%-156/69. LABS WERE OBTAINED. ABNORMAL LAB VALUES INCLUDE THE FOLLOWING: RBC 3.40, HGB 10.3, HCT 30.8, BUN 24, CREATININE 1.22, GLUCOSE 144, CALCIUM 8.3, TOTAL PROTEIN 6.1, ALBUMIN 3.0. A BRAIN CT WAS REPEATED TODAY AND REVEALED: Chronic appearing lacunar infarct left basal ganglia. Chronic small vessel ischemic changes. Stable subdural hematoma overlying the left tentorium. Stable intraparenchymal hematoma of the left frontal lobe with surrounding parenchymal edema. HER HOME MEDICATIONS WERE RESUMED WITH THE EXCEPTION OF ASPIRIN, PLAVIX, AND XARELTO. WE WILL CONTINUE WITH CURRENT PLAN OF CARE TODAY. WE WILL FOLLOW UP WITH AM LABS AND CONTINUE TO MONITOR. - Past Medical Family Social History Past Med/Fam/Surg Hx: No changes since H&P Allergies: Allergies atorvastatin [From Lipitor] Allergy (Verified 03/19/18 12:07) codeine Allergy (Verified 03/02/18 21:25) duloxetine [From Cymbalta] Allergy (Verified 03/02/18 21:25) sulfamethoxazole [From Bactrim] Allergy (Verified 03/02/18 21:25) trimethoprim [From Bactrim] Allergy (Verified 03/02/18 21:25) CI PIGMENT BLUE 63 Allergy (Uncoded 03/02/18 21:25) - Review of Systems ROS: No change since H&P - Vital Signs and I&O's Vital Signs: Temperature 99.0 F Pulse Rate [Bilateral Radial] 66 Pulse Rate 62 Respiratory Rate 25 Blood Pressure [Left Arm] 177/74 Blood Pressure [Right Arm] 153/67 Blood Pressure 172/72 O2 Sat by Pulse Oximetry 100 Intake and Output: Intake & Output 06/05/18 06/06/18 06/07/18 06/08/18 11:59 11:59 11:59 11:59 Intake Total 1464 / 1464 2941 / 2941 1877 / 1877 1355 / 1355 Output Total 1750 / 1750 2500 / 2500 3200 / 3200 2049 / 2049 Balance -286 / -286 441 / 441 -1323 / -1323 -695 / -695 - Physical Exam Oriented: Normal Eyes: Normal Ear: Normal Nose: Normal Throat: Normal Cardiovascular: Normal : Normal Auscultation: Bowel Sounds: Normal Palpation: Normal Tenderness: Normal Skin: Normal Musculoskeletal: Normal Psychiatric: Normal Mood Description: Calm Affect: Normal Speech Pattern: Delayed - Laboratory and Diagnostics Result Diagrams: 06/07/18 04:40 06/07/18 04:40 Labs: 06/04/18 17:45 Urine,Clean Catch Urine Culture - Final Laboratory WBC 6.6 X10^3/uL (3.6-10.0) 06/07/18 04:40 RBC 3.57 X10^6/uL (3.5-5.4) 06/07/18 04:40 Hgb 10.7 g/dL (12.0-16.0) L 06/07/18 04:40 Hct 32.3 % (36.0-47.0) L 06/07/18 04:40 MCV 90.6 fL (80.0-100.0) 06/07/18 04:40 MCH 30.0 pg (27.0-34.0) 06/07/18 04:40 MCHC 33.1 g/dL (33.0-35.0) 06/07/18 04:40 RDW 14.4 % (11.6-16.5) 06/07/18 04:40 Plt Count 162 X10^3/uL (150.0-450.0) 06/07/18 04:40 MPV 9.2 fL (7.4-11.0) 06/07/18 04:40 Neut % (Auto) 54.9 % (42.0-75.0) 06/07/18 04:40 Lymph % (Auto) 33.1 % (21.0-51.0) 06/07/18 04:40 [place] % (Auto) 6.7 % (0.0-13.0) 06/07/18 04:40 Eos % (Auto) 4.6 % (0.9-2.9) H 06/07/18 04:40 Baso % (Auto) 0.7 % (0.2-1.0) 06/07/18 04:40 Neut # (Auto) 3.6 x10^3/uL (2.2-4.8) 06/07/18 04:40 Lymph # (Auto) 2.2 X10^3/uL (1.3-2.9) 06/07/18 04:40 [place] # (Auto) 0.4 x10^3/uL (0.3-0.8) 06/07/18 04:40 Eos # (Auto) 0.3 x10^3/uL (0.0-0.2) H 06/07/18 04:40 Baso # (Auto) 0.0 X10^3/uL (0.0-0.1) 06/07/18 04:40 Absolute Nucleated RBC 0.0 /100WBC 06/07/18 04:40 Sodium 143 mmol/L (136-145) 06/07/18 04:40 Corrected Sodium TNP 06/07/18 04:40 Potassium 3.8 mmol/L (3.5-5.1) 06/07/18 04:40 Chloride 108 mmol/L (98-107) H 06/07/18 04:40 Carbon Dioxide 29.2 mmol/L (21-32) 06/07/18 04:40 BUN 17 mg/dL (7-18) 06/07/18 04:40 Creatinine 1.02 mg/dL (0.55-1.02) 06/07/18 04:40 Est GFR (MDRD) Af Amer > 60 (>60) 06/07/18 04:40 Est GFR (MDRD) Non-Af 55 (>60) L 06/07/18 04:40 Glucose 102 mg/dL (65-99) H 06/07/18 04:40 POC Glucose (mg/dL) 148 mg/dL (65-99) H 06/07/18 16:35 Calcium 8.4 mg/dL (8.5-10.1) L 06/07/18 04:40 Corrected Calcium 9.3 mg/dL (8.5-10.1) 06/07/18 04:40 Total Bilirubin 0.40 mg/dL (0.2-1.0) 06/07/18 04:40 AST 18 Units/L (15-37) 06/07/18 04:40 ALT 20 Units/L (12-78) 06/07/18 04:40 Alkaline Phosphatase 95 Units/L (46-116) 06/07/18 04:40 Total Protein 6.1 g/dL (6.4-8.2) L 06/07/18 04:40 Albumin 2.9 g/dL (3.4-5.0) L 06/07/18 04:40 Globulin 3.2 g/dL (2.5-4.5) 06/07/18 04:40 Albumin/Globulin Ratio 0.9 Ratio (1.1-2.1) L 06/07/18 04:40 Specimen Type Catherized urine 06/04/18 17:45 Urine Color Yellow (YELLOW) 06/04/18 17:45 Urine Appearance Clear (CLEAR) 06/04/18 17:45 Urine pH 6.0 (5.0 - 8.0) 06/04/18 17:45 Ur Specific [place] 1.010 (1.000-1.030) 06/04/18 17:45 Urine Protein Negative (NEGATIVE) 06/04/18 17:45 Urine Glucose (UA) Negative (NEGATIVE) 06/04/18 17:45 Urine Ketones Negative (NEGATIVE) 06/04/18 17:45 Urine Occult Blood 1+ (NEGATIVE) 06/04/18 17:45 Urine Nitrite Negative (NEGATIVE) 06/04/18 17:45 Urine Bilirubin Negative (NEGATIVE) 06/04/18 17:45 Urine Urobilinogen Normal (NORMAL) 06/04/18 17:45 Ur Leukocyte Esterase Negative (NEGATIVE) 06/04/18 17:45 Urine RBC 0-2 /HPF (NONE SEEN) 06/04/18 17:45 Urine WBC 0-2 /HPF (NONE SEEN) 06/04/18 17:45 Ur Squamous Epith Cells Rare /HPF (NEGATIVE) 06/04/18 17:45 Urine Bacteria Negative /HPF (NEGATIVE) 06/04/18 17:45 Ur Culture Indicated? 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
[2018-06-07] MEDS: CORDARONE TAB 200 MG PO SCH (21:00)
[2018-06-07] MEDS: LIPITOR TAB 20 MG PO SCH (21:00)
[2018-06-07] MEDS: EFFEXOR XR 150 MG CAP PO SCH (21:00)
[2018-06-07] MEDS: OXYBUTYNIN CHLORIDE ER PO SCH (21:00)
[2018-06-07] MEDS: COZAAR PO SCH (23:17)
[2018-06-07] MEDS: MILK OF MAGNESIA PO SCH (23:18)
[2018-06-08] MEDS: NS 1000 ML 1,000 ML IV SCH ×2 (05:10→18:38)
[2018-06-08 05:18] LABS: BASOPHILS # (AUTO) 0.1 X10^3/uL (0.0-0.1); BASOPHILS % (AUTO) 0.7 % (0.2-1.0); EOSINOPHILS # (AUTO) 0.3 x10^3/uL (0.0-0.2); EOSINOPHILS % (AUTO) 3.9 % (0.9-2.9); HEMATOCRIT 29.9 % (36.0-47.0); HEMOGLOBIN 10.1 g/dL (12.0-16.0); LYMPHOCYTES # (AUTO) 2.5 X10^3/uL (1.3-2.9); LYMPHOCYTES % (AUTO) 33.5 % (21.0-51.0); MEAN CORPUSCULAR HEMOGLOBIN 30.3 pg (27.0-34.0); MEAN CORPUSCULAR HGB CONC 33.7 g/dL (33.0-35.0); MEAN PLATELET VOLUME 9.2 fL (7.4-11.0); MONOCYTES # (AUTO) 0.6 x10^3/uL (0.3-0.8); MONOCYTES % (AUTO) 7.6 % (0.0-13.0); NEUTROPHILS % (AUTO) 54.3 % (42.0-75.0); PLATELET COUNT 163 X10^3/uL (150.0-450.0); RED BLOOD COUNT 3.32 X10^6/uL (3.5-5.4); RED CELL DISTRIBUTION WIDTH 14.4 % (11.6-16.5); WHITE BLOOD COUNT 7.4 X10^3/uL (3.6-10.0)
[2018-06-08 05:38] LABS: ALANINE AMINOTRANSFERASE 21 Units/L (12-78); ALBUMIN 2.8 g/dL (3.4-5.0); ALKALINE PHOSPHATASE 90 Units/L (46-116); ASPARTATE AMINO TRANSFERASE 18 Units/L (15-37); BLOOD UREA NITROGEN 22 mg/dL (7-18); CALCIUM 8.3 mg/dL (8.5-10.1); CARBON DIOXIDE 29.2 mmol/L (21-32); CHLORIDE 107 mmol/L (98-107); COR CA(FOR HYPOALB) 9.3 mg/dL (8.5-10.1); CREATININE 1.11 mg/dL (0.55-1.02); SODIUM 143 mmol/L (136-145); TOTAL PROTEIN 5.9 g/dL (6.4-8.2); eGFR NON BLACK RACES 50 (>60)
[2018-06-08] MEDS: SYNTHROID 50 mcg TAB PO SCH (09:06)
[2018-06-08] MEDS: VITAMIN D3 PO SCH (09:06)
[2018-06-08] MEDS: MACROBID CAP 100 MG EXT REL PO SCH ×2 (09:06→20:17)
[2018-06-08] MEDS: COLACE CAP 100 MG PO SCH ×2 (09:06→20:16)
[2018-06-08] MEDS: NORVASC TAB 5 MG PO SCH ×2 (09:06→20:16)
[2018-06-08] MEDS: PATIENT'S HOME MEDICATION (Biotin [Biotin] 1 MG) PO SCH (09:08)
[2018-06-08] MEDS: MILK OF MAGNESIA PO SCH (20:16)
[2018-06-08] MEDS: EFFEXOR XR 150 MG CAP PO SCH (20:16)
[2018-06-08] MEDS: LIPITOR TAB 20 MG PO SCH (20:17)
[2018-06-08] MEDS: OXYBUTYNIN CHLORIDE ER PO SCH (20:18)
[2018-06-08] MEDS: CORDARONE TAB 200 MG PO SCH (20:19)
[2018-06-08] MEDS ORDERED: COZAAR PO SCH (21:00)
--- NOTE | 2018-06-08 21:10 | PCM.PROG ---
Progress Note - Progress Note for Day of Date of Exam: 06/08/18 - Subjective Subjective: WAS ADMITTED FOR A SUBDURAL HEMATOMA, FREQUENT FALLS, AND SLURRED SPEECH. TODAY, SHE IS ALERT AND ORIENTED, LYING IN BED ON MORNING ROUNDS. PUPILS PERRLA. SPEECH HAS RETURNED TO NORMAL. 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 HER VITALS THIS MORNING ARE 98.3-61-19-100%-176/99. LABS WERE OBTAINED. ABNORMAL LAB VALUES INCLUDE THE FOLLOWING: RBC 3.32, HGB 10.1, HCT 29.9, BUN 22, CREATININE 1.11, GLUCOSE 110, CALCIUM 8.3, TOTAL PROTEIN 5.9, ALBUMIN 2.8. YESTERDAYS BRAIN CT REVEALED: No change from CT exam performed on previous day again demonstrating a small left frontal lobe cortical hemorrhagic contusion with small amount of vasogenic edema. No change in size of extra-axial hemorrhage/subdural hematoma layering along the left cerebellar tentorium. HER BLOOD PRESSURE HAS REMAINED ELEVATED. SHE IS CURRENTLY RECEIVING CATAPRES 3MG PATCH, NORVASC 5MG PO BID, AND COZAAR 50MG PO HS. TODAY, WE WILL INCREASE COAZZR TO 100MG PO HS. OTHERWISE, WE WILL CONTINUE WITH CURRENT PLAN OF CARE TODAY. WE WILL FOLLOW UP WITH AM LABS AND CONTINUE TO MONITOR. - Past Medical Family Social History Past Med/Fam/Surg Hx: No changes since H&P Allergies: Allergies atorvastatin [From Lipitor] Allergy (Verified 03/19/18 12:07) codeine Allergy (Verified 03/02/18 21:25) duloxetine [From Cymbalta] Allergy (Verified 03/02/18 21:25) sulfamethoxazole [From Bactrim] Allergy (Verified 03/02/18 21:25) trimethoprim [From Bactrim] Allergy (Verified 03/02/18 21:25) CI PIGMENT BLUE 63 Allergy (Uncoded 03/02/18 21:25) - Review of Systems ROS: No change since H&P - Vital Signs and I&O's Vital Signs: Temperature 97.5 F Pulse Rate [Bilateral Radial] 66 Pulse Rate 65 Respiratory Rate 19 Blood Pressure [Left Arm] 177/74 Blood Pressure [Right Arm] 153/67 Blood Pressure 173/77 O2 Sat by Pulse Oximetry 100 Intake and Output: Intake & Output 06/06/18 06/07/18 06/08/18 03/05/19 11:59 11:59 11:59 11:59 Intake Total 2941 / 2941 1877 / 1877 3305 / 3305 1732 / 1732 Output Total 2500 / 2500 3200 / 3200 2049 / 2049 1150 / 1150 Balance 441 / 441 -1323 / -1323 1255 / 1255 582 / 582 - Physical Exam Oriented: Normal Eyes: Normal Ear: Normal Nose: Normal Throat: Normal Respiratory: Generalized Cardiovascular: Normal : Normal Auscultation: Bowel Sounds: Normal Palpation: Normal Tenderness: Normal Skin: Normal Musculoskeletal: Normal Psychiatric: Normal Mood Description: Calm Affect: Normal Speech Pattern: Clear, Appropriate - Laboratory and Diagnostics Result Diagrams: 06/08/18 04:40 06/08/18 04:40 Labs: 06/04/18 17:45 Urine,Clean Catch Urine Culture - Final Laboratory WBC 7.4 X10^3/uL (3.6-10.0) 06/08/18 04:40 RBC 3.32 X10^6/uL (3.5-5.4) L 06/08/18 04:40 Hgb 10.1 g/dL (12.0-16.0) L 06/08/18 04:40 Hct 29.9 % (36.0-47.0) L 06/08/18 04:40 MCV 90.0 fL (80.0-100.0) 06/08/18 04:40 MCH 30.3 pg (27.0-34.0) 06/08/18 04:40 MCHC 33.7 g/dL (33.0-35.0) 06/08/18 04:40 RDW 14.4 % (11.6-16.5) 06/08/18 04:40 Plt Count 163 X10^3/uL (150.0-450.0) 06/08/18 04:40 MPV 9.2 fL (7.4-11.0) 06/08/18 04:40 Neut % (Auto) 54.3 % (42.0-75.0) 06/08/18 04:40 Lymph % (Auto) 33.5 % (21.0-51.0) 06/08/18 04:40 [place] % (Auto) 7.6 % (0.0-13.0) 06/08/18 04:40 Eos % (Auto) 3.9 % (0.9-2.9) H 06/08/18 04:40 Baso % (Auto) 0.7 % (0.2-1.0) 06/08/18 04:40 Neut # (Auto) 4.0 x10^3/uL (2.2-4.8) 06/08/18 04:40 Lymph # (Auto) 2.5 X10^3/uL (1.3-2.9) 06/08/18 04:40 [place] # (Auto) 0.6 x10^3/uL (0.3-0.8) 06/08/18 04:40 Eos # (Auto) 0.3 x10^3/uL (0.0-0.2) H 06/08/18 04:40 Baso # (Auto) 0.1 X10^3/uL (0.0-0.1) 06/08/18 04:40 Absolute Nucleated RBC 0.0 /100WBC 06/08/18 04:40 Sodium 143 mmol/L (136-145) 06/08/18 04:40 Corrected Sodium TNP 06/08/18 04:40 Potassium 4.0 mmol/L (3.5-5.1) 06/08/18 04:40 Chloride 107 mmol/L (98-107) 06/08/18 04:40 Carbon Dioxide 29.2 mmol/L (21-32) 06/08/18 04:40 BUN 22 mg/dL (7-18) H 06/08/18 04:40 Creatinine 1.11 mg/dL (0.55-1.02) H 06/08/18 04:40 Est GFR (MDRD) Af Amer > 60 (>60) 06/08/18 04:40 Est GFR (MDRD) Non-Af 50 (>60) L 06/08/18 04:40 Glucose 110 mg/dL (65-99) H 06/08/18 04:40 POC Glucose (mg/dL) 144 mg/dL (65-99) H 06/08/18 21:06 Calcium 8.3 mg/dL (8.5-10.1) L 06/08/18 04:40 Corrected Calcium 9.3 mg/dL (8.5-10.1) 06/08/18 04:40 Total Bilirubin 0.30 mg/dL (0.2-1.0) 06/08/18 04:40 AST 18 Units/L (15-37) 06/08/18 04:40 ALT 21 Units/L (12-78) 06/08/18 04:40 Alkaline Phosphatase 90 Units/L (46-116) 06/08/18 04:40 Total Protein 5.9 g/dL (6.4-8.2) L 06/08/18 04:40 Albumin 2.8 g/dL (3.4-5.0) L 06/08/18 04:40 Globulin 3.1 g/dL (2.5-4.5) 06/08/18 04:40 Albumin/Globulin Ratio 0.9 Ratio (1.1-2.1) L 06/08/18 04:40 Specimen Type Catherized urine 06/04/18 17:45 Urine Color Yellow (YELLOW) 06/04/18 17:45 Urine Appearance Clear (CLEAR) 06/04/18 17:45 Urine pH 6.0 (5.0 - 8.0) 06/04/18 17:45 Ur Specific [place] 1.010 (1.000-1.030) 06/04/18 17:45 Urine Protein Negative (NEGATIVE) 06/04/18 17:45 Urine Glucose (UA) Negative (NEGATIVE) 06/04/18 17:45 Urine Ketones Negative (NEGATIVE) 06/04/18 17:45 Urine Occult Blood 1+ (NEGATIVE) 06/04/18 17:45 Urine Nitrite Negative (NEGATIVE) 06/04/18 17:45 Urine Bilirubin Negative (NEGATIVE) 06/04/18 17:45 Urine Urobilinogen Normal (NORMAL) 06/04/18 17:45 Ur Leukocyte Esterase Negative (NEGATIVE) 06/04/18 17:45 Urine RBC 0-2 /HPF (NONE SEEN) 06/04/18 17:45 Urine WBC 0-2 /HPF (NONE SEEN) 06/04/18 17:45 Ur Squamous Epith Cells Rare /HPF (NEGATIVE) 06/04/18 17:45 Urine Bacteria Negative /HPF (NEGATIVE) 06/04/18 17:45 Ur Culture Indicated? 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
[2018-06-09 05:35] LABS: BASOPHILS % (AUTO) 0.6 % (0.2-1.0); EOSINOPHILS # (AUTO) 0.3 x10^3/uL (0.0-0.2); EOSINOPHILS % (AUTO) 4.8 % (0.9-2.9); HEMATOCRIT 31.1 % (36.0-47.0); HEMOGLOBIN 10.4 g/dL (12.0-16.0); LYMPHOCYTES # (AUTO) 2.4 X10^3/uL (1.3-2.9); LYMPHOCYTES % (AUTO) 36.2 % (21.0-51.0); MEAN CORPUSCULAR HEMOGLOBIN 30.3 pg (27.0-34.0); MEAN CORPUSCULAR HGB CONC 33.4 g/dL (33.0-35.0); MEAN CORPUSCULAR VOLUME 90.7 fL (80.0-100.0); MEAN PLATELET VOLUME 9.1 fL (7.4-11.0); MONOCYTES # (AUTO) 0.5 x10^3/uL (0.3-0.8); MONOCYTES % (AUTO) 7.3 % (0.0-13.0); NEUTROPHILS # (AUTO) 3.3 x10^3/uL (2.2-4.8); NEUTROPHILS % (AUTO) 51.1 % (42.0-75.0); PLATELET COUNT 168 X10^3/uL (150.0-450.0); RED BLOOD COUNT 3.42 X10^6/uL (3.5-5.4); RED CELL DISTRIBUTION WIDTH 14.8 % (11.6-16.5); WHITE BLOOD COUNT 6.5 X10^3/uL (3.6-10.0)
[2018-06-09 05:44] LABS: ALANINE AMINOTRANSFERASE 20 Units/L (12-78); ALBUMIN 2.9 g/dL (3.4-5.0); ALKALINE PHOSPHATASE 98 Units/L (46-116); ASPARTATE AMINO TRANSFERASE 22 Units/L (15-37); BLOOD UREA NITROGEN 19 mg/dL (7-18); CALCIUM 8.5 mg/dL (8.5-10.1); CARBON DIOXIDE 30.4 mmol/L (21-32); CHLORIDE 107 mmol/L (98-107); COR CA(FOR HYPOALB) 9.4 mg/dL (8.5-10.1); COR NA(FOR HYPERGLY) 143 mmol/L (136-145); CREATININE 1.04 mg/dL (0.55-1.02); SODIUM 143 mmol/L (136-145); TOTAL PROTEIN 6.2 g/dL (6.4-8.2); eGFR NON BLACK RACES 54 (>60)
[2018-06-09] MEDS: NS 1000 ML 1,000 ML IV SCH (07:41)
[2018-06-09] MEDS ORDERED: MILK OF MAGNESIA PO PRN (07:43)
[2018-06-09] MEDS ORDERED: BIOTIN PO SCH (09:00)
[2018-06-09] MEDS: MACROBID CAP 100 MG EXT REL PO SCH (09:24)
[2018-06-09] MEDS: NORVASC TAB 5 MG PO SCH (09:24)
[2018-06-09] MEDS: SYNTHROID 50 mcg TAB PO SCH (09:24)
[2018-06-09] MEDS: COLACE CAP 100 MG PO SCH (09:25)
[2018-06-09] MEDS: VITAMIN D3 PO SCH (09:28)
[2018-06-09 12:04] VITALS: BP 146/65
== END 2018-06-09 13:05 | disposition home or self-care (01) | DRG 87 ==
LOC: ICU → OBSVTOIN 14:11
PROVIDERS: ADMIT Internal Medicine; ATTEND Internal Medicine
DX: S06.5X0A Traumatic subdural hemorrhage without loss of consciousness, initial encounter; R29.6 Repeated falls; I15.1 Hypertension secondary to other renal disorders; X58.XXXA Exposure to other specified factors, initial encounter; Z79.01 Long term (current) use of anticoagulants; R93.0 Abnormal findings on diagnostic imaging of skull and head, not elsewhere classified; E78.2 Mixed hyperlipidemia; N28.89 Other specified disorders of kidney and ureter; R47.81 Slurred speech; I25.10 Atherosclerotic heart disease of native coronary artery without angina pectoris
CPT/HCPCS: 36415; 70450; 80053; 81001; 85025; 87086; 97116; 97162; 97166; 97530; 97535; A4216; A4222; J3490; J7030

== ENCOUNTER 2018-06-23 15:56 | Observation (INO) ==
[2018-06-23 16:32] LABS: BASOPHILS % (AUTO) 0.6 % (0.2-1.0); EOSINOPHILS # (AUTO) 0.3 x10^3/uL (0.0-0.2); EOSINOPHILS % (AUTO) 3.3 % (0.9-2.9); HEMATOCRIT 30.9 % (36.0-47.0); HEMOGLOBIN 10.4 g/dL (12.0-16.0); LYMPHOCYTES # (AUTO) 2.8 X10^3/uL (1.3-2.9); LYMPHOCYTES % (AUTO) 35.1 % (21.0-51.0); MEAN CORPUSCULAR HEMOGLOBIN 30.1 pg (27.0-34.0); MEAN CORPUSCULAR HGB CONC 33.8 g/dL (33.0-35.0); MEAN CORPUSCULAR VOLUME 89.1 fL (80.0-100.0); MEAN PLATELET VOLUME 8.6 fL (7.4-11.0); MONOCYTES # (AUTO) 0.5 x10^3/uL (0.3-0.8); MONOCYTES % (AUTO) 6.5 % (0.0-13.0); NEUTROPHILS # (AUTO) 4.3 x10^3/uL (2.2-4.8); NEUTROPHILS % (AUTO) 54.5 % (42.0-75.0); PLATELET COUNT 236 X10^3/uL (150.0-450.0); RED BLOOD COUNT 3.46 X10^6/uL (3.5-5.4); RED CELL DISTRIBUTION WIDTH 14.7 % (11.6-16.5); WHITE BLOOD COUNT 7.9 X10^3/uL (3.6-10.0)
--- NOTE | 2018-06-23 16:35 | CT ---
History: Status post fall and pain Exam: CT head without contrast Comparison: 06/07/2018 Technique: Routine transaxial images were obtained through the brain without contrast. Automated dose control was utilized. Findings: Ventricles are mildly enlarged there is diffuse mild prominence of the cortical sulci which is unchanged. There is mild periventricular low density bilaterally which is unchanged. There is no extra-axial fluid collection or mass. There is mild focal scalp swelling along the right occipital region . No fracture is seen. There are surgical fixation devices are seen overlying craniotomy sites along the left parietal region which are unchanged. The midline structures are unremarkable. IMPRESSION: Mild atrophy and moderate chronic microischemic changes scattered in the deep white matter which is unchanged with no acute abnormality seen . Small scalp hematoma right occipital region with no. Interval resolution of the previously described hemorrhages along the left frontal lobe and left tentorium . Reported By:
[2018-06-23 16:49] LABS: ALANINE AMINOTRANSFERASE 17 Units/L (12-78); ALBUMIN 3.4 g/dL (3.4-5.0); ALKALINE PHOSPHATASE 110 Units/L (46-116); ASPARTATE AMINO TRANSFERASE 15 Units/L (15-37); BLOOD UREA NITROGEN 31 mg/dL (7-18); CARBON DIOXIDE 27.8 mmol/L (21-32); CHLORIDE 105 mmol/L (98-107); COR NA(FOR HYPERGLY) 146 mmol/L (136-145); CREATININE 1.64 mg/dL (0.55-1.02); SODIUM 143 mmol/L (136-145); TOTAL PROTEIN 7.1 g/dL (6.4-8.2); eGFR NON BLACK RACES 32 (>60)
[2018-06-23] MEDS ORDERED: BACITRACIN ZINC ONE (18:18)
--- NOTE | 2018-06-23 18:24 | DR.DIARMA ---
HPI Time seen Time Seen by Provider: 06/23/18 17:02 PCP Primary Care Physician: DOUGLAS Complaint Chief Complaint Doctor Comments: I agree with statement as written Chief Complaint:: PT. FELL AT HER HOME, HITTING THE BACK OF HER HEAD ON CONCRETE. NO LOC. PT. HAS HEMATOMA TO BACK OF HEAD. PT. C/O PAIN TO AREA. DRIED BLOOD NOTED TO PT'S HAIR. NO ACTIVE BLEEDING AT TIME OF TRIAGE. Source History Provided: Patient and EMS Mode of Arrival Mode of Arrival: EMS Timing Onset of Chief Complaint: 06/23/18 PMH PMH Past Medical History: Yes Past Medical History: Anemia, Arthritis, Coronary Artery Disease, CVA, Depression, Diabetes, Dyslipidemia, Headaches, Hypertension, Kidney Stones, [place], Renal Disease and Seizures Past Surgical History: Yes Surgical History: Angioplasty/Stents, CABG/Valve Surgery, Hysterectomy and Ortho Surgery Family History History of Family Medical Conditions: Yes Family Medical History: Diabetes Mellitus, Cancer, [place], Coronary Artery Disease, Heart Failure and Hypertension Social History Does patient currently use any type of tobacco product: No Have you used tobacco products in the last 12 months: No Type of Tobacco Use: None Does any household member use tobacco: No Alcohol Use: None Do you use any recreational Drugs:: No Lives With: Family Lives Where: Home infectious screening In the last 2 months have you had wt loss of >10#?: NO Have you had fever, night sweats or hemotysis?: No Have you traveled outside the country in the last 6 months?: No Isolation: Standard PE Vital Signs Vitals: Temperature 98.4 F Pulse Rate [Left Brachial] 71 Pulse Rate 61 Respiratory Rate 16 Blood Pressure [Left Arm] 142/64 Blood Pressure [Right Arm] 153/67 Blood Pressure 153/71 O2 Sat by Pulse Oximetry 92 General Limitations: No Limitations General Appearance: Alert and In No Apparent Distress Head Head Exam: Atraumatic, Normocephalic and Other (3cm right hematoma of scalp with skin abrasion) Eyes Eye exam: Normal Appearance, PERRL and EOMI ENT ENT Exam: Normal Exam, Normal Oropharynx, Normal External Ear Exam, Mucous Membranes Moist and TM's Normal Bilaterally Neck Neck Exam: Normal Inspection and Full ROM Chest Chest Inspection: Normal Inspection and Symmetric Chest Wall Rise Respiratory Respiratory Exam: Normal Lung Sounds Bilat Respiratory Exam: Bilateral: Clear to Auscultation Cardiovascular Cardiovascular Exam: Regular Rate and Normal Rhythm Abdominal Exam Abdominal Exam: Normal Inspection, Normal Bowel Sounds and Soft Rectal Rectal: Deferred Genitourinary Scrotum: Deferred Hernia: Deferred Extremeties Extremities Exam: Normal Inspection and Full ROM Back Back Exam: Normal Inspection and Full ROM Neurologic Neurological Exam: Alert, Oriented X3 and CN II-XII Intact Psychiatric Psychiatric Exam: Normal Affect and Normal Mood Skin Skin Exam: Warm, Dry and Intact (Except for abrasion of occipital area - right) COURSE Consultation Called: 18:10 Consultation Comments: Dr. Lott agreed to admit for observation due to head trauma ROR Labs Reviewed Laboratory Results Reviewed?: Yes Result Diagrams: 06/23/18 16:25 06/23/18 16:25 Laboratory: WBC 7.9 X10^3/uL (3.6-10.0) 06/23/18 16:25 RBC 3.46 X10^6/uL (3.5-5.4) L 06/23/18 16:25 Hgb 10.4 g/dL (12.0-16.0) L 06/23/18 16:25 Hct 30.9 % (36.0-47.0) L 06/23/18 16:25 MCV 89.1 fL (80.0-100.0) 06/23/18 16:25 MCH 30.1 pg (27.0-34.0) 06/23/18 16:25 MCHC 33.8 g/dL (33.0-35.0) 06/23/18 16:25 RDW 14.7 % (11.6-16.5) 06/23/18 16:25 Plt Count 236 X10^3/uL (150.0-450.0) 06/23/18 16:25 MPV 8.6 fL (7.4-11.0) 06/23/18 16:25 Neut % (Auto) 54.5 % (42.0-75.0) 06/23/18 16:25 Lymph % (Auto) 35.1 % (21.0-51.0) 06/23/18 16:25 Colbert % (Auto) 6.5 % (0.0-13.0) 06/23/18 16:25 Eos % (Auto) 3.3 % (0.9-2.9) H 06/23/18 16:25 Baso % (Auto) 0.6 % (0.2-1.0) 06/23/18 16:25 Neut # (Auto) 4.3 x10^3/uL (2.2-4.8) 06/23/18 16:25 Lymph # (Auto) 2.8 X10^3/uL (1.3-2.9) 06/23/18 16:25 Colbert # (Auto) 0.5 x10^3/uL (0.3-0.8) 06/23/18 16:25 Eos # (Auto) 0.3 x10^3/uL (0.0-0.2) H 06/23/18 16:25 Baso # (Auto) 0.0 X10^3/uL (0.0-0.1) 06/23/18 16:25 Absolute Nucleated RBC 0.0 /100WBC 06/23/18 16:25 INR Target Range - 06/23/18 16:25 INR 1.00 (0.8-1.3) 06/23/18 16:25 APTT 28.1 SECONDS (22.9-36.5) 06/23/18 16:25 PTT Comment - 06/23/18 16:25 Sodium 143 mmol/L (136-145) 06/23/18 16:25 Corrected Sodium 146 mmol/L (136-145) H 06/23/18 16:25 Potassium 4.0 mmol/L (3.5-5.1) 06/23/18 16:25 Chloride 105 mmol/L (98-107) 06/23/18 16:25 Carbon Dioxide 27.8 mmol/L (21-32) 06/23/18 16:25 BUN 31 mg/dL (7-18) H 06/23/18 16:25 Creatinine 1.64 mg/dL (0.55-1.02) H 06/23/18 16:25 Est GFR (MDRD) Af Amer 39 (>60) L 06/23/18 16:25 Est GFR (MDRD) Non-Af 32 (>60) L 06/23/18 16:25 Glucose 219 mg/dL (65-99) H 06/23/18 16:25 POC Glucose (mg/dL) 169 mg/dL (65-99) H 06/23/18 20:25 Calcium 9.0 mg/dL (8.5-10.1) 06/23/18 16:25 Corrected Calcium TNP 06/23/18 16:25 Total Bilirubin 0.20 mg/dL (0.2-1.0) 06/23/18 16:25 AST 15 Units/L (15-37) 06/23/18 16:25 ALT 17 Units/L (12-78) 06/23/18 16:25 Alkaline Phosphatase 110 Units/L (46-116) 06/23/18 16:25 Total Protein 7.1 g/dL (6.4-8.2) 06/23/18 16:25 Albumin 3.4 g/dL (3.4-5.0) 06/23/18 16:25 Globulin 3.7 g/dL (2.5-4.5) 06/23/18 16:25 Albumin/Globulin Ratio 0.9 Ratio (1.1-2.1) L 06/23/18 16:25 Other Results Comments: CT Brain w/o: Ventricles are mildly enlarged there is diffuse mild prominence of the cortical sulci which is unchanged. There is mild periventricular low density bilaterally which is unchanged. There is no extra axial fluid collection or mass. There is mild focal scalp swelling along the right occipital region. No fracture is seen. There are surgical fixation devices are seen overlying craniotomy sites along the left parietal region which are unchanged. The midline structures are unremarkable. Impression: Mild atrophy and moderate chronic microischemic changes scattered in the deep whi9te matter which is unchanged with no acute abnormality seen. Small scalp hematoma right occipital region..Interval resolution of the previously described hemorrhages along the left frontal lobe and left tentorium. XRAY XRAY Interpreted by: Radiologist Diagnosis Discharge Problem: Hematoma of occipital surface of head ADDITIONAL NOTES Additional Notes Additional Notes: Patient admitted for observation
[2018-06-23] MEDS ORDERED: PHENERGAN INJ 25 MG IM PRN (18:26)
[2018-06-23] MEDS ORDERED: VALIUM INJ IVP ONE (18:39)
[2018-06-23] MEDS ORDERED: VALIUM INJ IVP PRN (19:03)
[2018-06-23] MEDS ORDERED: HumuLIN R SUBCUT PRN (19:38)
[2018-06-23] MEDS ORDERED: NS 1/2 1000 ML IV 1,000 ML ONE (20:49)
[2018-06-23 20:55] VITALS: BMI 24.7
[2018-06-23] MEDS ORDERED: VENLAFAXINE HCL PO SCH (21:00)
[2018-06-23] MEDS ORDERED: OXYBUTYNIN CHLORIDE 5 MG PO SCH (21:00)
[2018-06-23] MEDS: NS 1/2 1000 ML IV 1,000 ML IV SCH (21:27)
[2018-06-23] MEDS: CORDARONE TAB 200 MG PO SCH (21:53)
[2018-06-23] MEDS: NORVASC TAB 5 MG PO SCH (21:53)
[2018-06-23] MEDS: LIPITOR TAB 20 MG PO SCH (21:53)
[2018-06-23] MEDS: COZAAR PO SCH (21:58)
[2018-06-23] MEDS: EFFEXOR XR 150 MG CAP PO SCH (21:58)
[2018-06-23] MEDS: OXYBUTYNIN CHLORIDE ER PO SCH (21:58)
[2018-06-24 04:37] LABS: BASOPHILS % (AUTO) 0.5 % (0.2-1.0); EOSINOPHILS # (AUTO) 0.3 x10^3/uL (0.0-0.2); EOSINOPHILS % (AUTO) 3.9 % (0.9-2.9); HEMATOCRIT 31.6 % (36.0-47.0); HEMOGLOBIN 10.4 g/dL (12.0-16.0); LYMPHOCYTES # (AUTO) 2.5 X10^3/uL (1.3-2.9); LYMPHOCYTES % (AUTO) 31.6 % (21.0-51.0); MEAN CORPUSCULAR HEMOGLOBIN 29.9 pg (27.0-34.0); MEAN CORPUSCULAR VOLUME 90.5 fL (80.0-100.0); MEAN PLATELET VOLUME 8.9 fL (7.4-11.0); MONOCYTES # (AUTO) 0.5 x10^3/uL (0.3-0.8); MONOCYTES % (AUTO) 6.6 % (0.0-13.0); NEUTROPHILS # (AUTO) 4.6 x10^3/uL (2.2-4.8); NEUTROPHILS % (AUTO) 57.4 % (42.0-75.0); PLATELET COUNT 232 X10^3/uL (150.0-450.0); RED BLOOD COUNT 3.49 X10^6/uL (3.5-5.4); RED CELL DISTRIBUTION WIDTH 14.5 % (11.6-16.5)
[2018-06-24 04:45] LABS: ALBUMIN 3.1 g/dL (3.4-5.0); CALCIUM 8.6 mg/dL (8.5-10.1); CARBON DIOXIDE 27.6 mmol/L (21-32); COR CA(FOR HYPOALB) 9.3 mg/dL (8.5-10.1); CREATININE 1.33 mg/dL (0.55-1.02); TOTAL PROTEIN 6.7 g/dL (6.4-8.2)
[2018-06-24] MEDS: SYNTHROID 50 mcg TAB PO SCH (08:19)
[2018-06-24] MEDS: TAB-A-VITE PO SCH (08:19)
[2018-06-24] MEDS: VITAMIN D3 PO SCH (08:19)
[2018-06-24] MEDS: NORVASC TAB 5 MG PO SCH ×2 (08:19→20:32)
[2018-06-24] MEDS: CLARITIN PO SCH (08:19)
[2018-06-24] MEDS: COLACE CAP 100 MG PO SCH (08:19)
[2018-06-24] MEDS: COZAAR PO SCH (08:19)
[2018-06-24] MEDS ORDERED: PATIENT'S HOME MEDICATION (Cholecalciferol (Vitamin D3) [Vitamin D3] 1 TAB) PO SCH (09:00)
[2018-06-24] MEDS ORDERED: BIOTIN 5000 MG PO SCH (09:00)
[2018-06-24] MEDS ORDERED: [UNRECOGNIZED DRUG - OTHER] PO SCH (09:00)
[2018-06-24] MEDS ORDERED: NS 1/2 1000 ML IV 1,000 ML ONE ×2 (09:07→20:28)
[2018-06-24] MEDS: NS 1/2 1000 ML IV 1,000 ML IV SCH ×3 (09:16→21:47)
[2018-06-24 11:05] LABS: CKMB % 2.2 % (<4); CREATINE KINASE 45 Units/L (26-192); CREATINE KINASE MB < 1.0 ng/mL (0-4.0); TROPONIN I < 0.02 ng/mL (0-1.5)
[2018-06-24 15:05] LABS: CKMB % 2.3 % (<4); CREATINE KINASE 43 Units/L (26-192); CREATINE KINASE MB < 1.0 ng/mL (0-4.0); TROPONIN I 0.02 ng/mL (0-1.5)
[2018-06-24 19:52] LABS: CKMB % 2.3 % (<4); CREATINE KINASE 44 Units/L (26-192); CREATINE KINASE MB < 1.0 ng/mL (0-4.0); TROPONIN I < 0.02 ng/mL (0-1.5)
[2018-06-24] MEDS: EFFEXOR XR 150 MG CAP PO SCH (20:31)
[2018-06-24] MEDS: LIPITOR TAB 20 MG PO SCH (20:32)
[2018-06-24] MEDS: CORDARONE TAB 200 MG PO SCH (20:32)
[2018-06-24] MEDS: OXYBUTYNIN CHLORIDE ER PO SCH (20:32)
--- NOTE | 2018-06-24 22:15 | DR.H&P ---
H&P - History & Physical for Day of: H&P Date: 06/23/18 - Chief Complaint Chief Complaint: FALLS, HEAD TRAUMA, WEAKNESS - History of Present Illness History of Present Illness: IS A 82 YEAR OLD PATIENT OF OURS. SHE PRESENTED TO THE HOSPITAL WITH COMPLAINTS OF FALLING AT HOME. SHE REPORTS HITTING THE BACK OF HER HEAD ON THE CONCRETE WHEN FALLING. SHE DENIES LOC. ON EXAMINATION, THERE IS A HEMATOMA NOTED TO THE BACK OF HER HEAD. SHE DENIES PAIN. NO ACTIVE BLEEDING NOTED ON ARRIVAL. ON ARRIVAL, VITALS WERE 98.4-61-17-95%-153/71. LABS WERE OBTAINED. ABNORMAL LAB VALUES INCLUDE THE FOLLOWING: RBC 3.46, HGB 10.4, HCT 30.9, BUN 31, CREATININE 1.64, GLUCOSE 219. A BRAIN CT WAS OBTAINED AND REVEALED: Mild atrophy and moderate chronic microischemic changes scattered in the deep white matter which is unchanged with no acute abnormality seen. Small scalp hematoma right occipital region. Interval resolution of the previously described hemorrhages along the left frontal lobe and left tentorium. SHE WAS ADMITTED FOR FURTHER EVALUATION AND TREATMENT OF DEHYDRATION, PRE-RENAL FAILURE, FALLS, AND HEAD TRAUMA. SHE WAS STARTED ON NS AT 80ML/HR. WE PLAN TO FOLLOW UP WITH AM LABS AND CONTINUE TO MONITOR. - Past Medical History Past Medical History: [place], Coronary Artery Disease, Hypertension, Dyslipidemia, Diabetes, Renal Disease, Depression, Anemia, CVA, Seizures, Arthritis, Kidney Stones, Headaches Additional Medical History: Paroxysmal Atrial Fibrillation, TIA, Bronchitis, Pancreatitis, Urinary Tract Infections, Muscle Weakness, Back Pain, Previous Blood Transfusion, Skin Cancer Face - Past Surgical History Surgical History: Angioplasty/Stents, CABG/Valve Surgery, Hysterectomy, Ortho Surgery Additional Surgical History: Hernia Repair, Cataract Removal, Left Sided SHEYLA Holes S/P Subdural Hematoma Evacuation (09/29/13), Skin Cancer Removal - Family History Family Medical History: Diabetes Mellitus, Cancer, [place], Coronary Artery Disease, Heart Failure, Hypertension - Social History Does patient currently use any type of tobacco product: No Have you used tobacco products in the last 12 months: No Type of Tobacco Use: None Does any household member use tobacco: No Alcohol Use: None Drug Use: None - Medications Home Medications: atorvastatin [From Lipitor] Allergy (Verified 06/23/18 15:58) codeine Allergy (Verified 06/23/18 15:58) duloxetine [From Cymbalta] Allergy (Verified 06/23/18 15:58) sulfamethoxazole [From Bactrim] Allergy (Verified 06/23/18 15:58) trimethoprim [From Bactrim] Allergy (Verified 06/23/18 15:58) CI PIGMENT BLUE 63 Allergy (Uncoded 06/23/18 15:58) CONTINUE taking the following medications clonidine 0.3 patch TOPICAL WEEKLY 06/23/18 [History] loratadine [Claritin] 10 mg PO DAILY 06/23/18 [History] [id number] [Women's One Daily] 1 tab PO DAILY 06/23/18 [History] - Review of Systems Constitutional: See HPI, Weakness Eyes: No Symptoms Reported ENT: No Symptoms Reported Respiratory: No Symptoms Reported Cardiovascular: No Symptoms Reported Gastrointestinal: No Symptoms Reported Genitourinary: No Symptoms Reported Musculoskeletal: No Symptoms Reported Skin: See HPI (SCALP HEMATOMA ) Neurological: Weakness - Physical Exam Vital Signs: Temperature 98.2 F Pulse Rate [Left Brachial] 59 Pulse Rate 61 Respiratory Rate 20 Blood Pressure [Left Arm] 142/61 Blood Pressure [Right Arm] 150/67 Blood Pressure 153/71 O2 Sat by Pulse Oximetry 97 Oriented: Normal Eyes: Normal Ear: Normal Nose: Normal Throat: Normal Respiratory: Diminished Throughout Cardiovascular: Normal. negative: S3, S4, Murmur : Normal Auscultation: Bowel Sounds: Normal Palpation: Normal Tenderness: Normal Skin: Wound (SCALP HEMATOMA ), Bruising Musculoskeletal: Normal Psychiatric: Normal Mood Description: Calm Affect: Normal Speech Pattern: Clear - Assessment/Plan (1) Dehydration Status: Acute Plan: 1/2 NS AT 80ML/HR, CONTINUE TO MONITOR (2) Hematoma of occipital surface of head Qualifiers: Encounter type: initial encounter Qualified Code(s): S00.83XA - Contusion of other part of head, initial encounter Status: Acute Plan: WOUND CARE, CONTINUE TO MONITOR (3) Frequent falls Status: Acute - Allergies Allergies/Adverse Reactions: Allergies Allergy/AdvReac Type Severity Reaction Status Date / Time atorvastatin [From Lipitor] Allergy Verified 06/23/18 15:58 codeine Allergy Verified 06/23/18 15:58 duloxetine [From Cymbalta] Allergy Verified 06/23/18 15:58 sulfamethoxazole Allergy Verified 06/23/18 15:58 [From Bactrim] trimethoprim [From Bactrim] Allergy Verified 06/23/18 15:58 CI PIGMENT BLUE 63 Allergy Uncoded 06/23/18 15:58
--- NOTE | 2018-06-24 22:22 | PCM.PROG ---
Progress Note - Progress Note for Day of Date of Exam: 06/24/18 - Subjective Subjective: WAS ADMITTED FOR DEHYDRATION, PRE RENAL AZOTEMIA, FREQUENT FALLS, AND HEAD TRAUMA. TODAY, SHE IS ALERT AND ORIENTED, LYING IN BED ON MORNING ROUNDS. SHE CONTINUES WITH WEAKNESS AND REPORTS DIZZINESS AT TIMES. SHE CONTINUES WITH A HEMATOMA TO THE SCALP. IT HAS DECREASED IN SIZE SINCE YESTERDAY. HER VITALS THIS MORNING ARE 98.4-61-18-99%-123/55. LABS WERE OBTAINED. ABNORMAL LAB VALUES INCLUDE THE FOLLOWING: RBC 3.49, HGB 10.4, HCT 31.6, BUN 28, CREATININE 1.33, GLUCOSE 147, ALBUMIN 3.1. TODAY, WE PLAN TO OBTAIN SERIAL CARDIAC ENZYMES AND EKGS. WE WILL PLACE HER ON TELEMETRY. OT HERWISE, WE WILL FOLLOW UP WITH AM LABS AND CONTINUE TO MONITOR. - Past Medical Family Social History Past Med/Fam/Surg Hx: No changes since H&P Allergies: Allergies atorvastatin [From Lipitor] Allergy (Verified 06/23/18 15:58) codeine Allergy (Verified 06/23/18 15:58) duloxetine [From Cymbalta] Allergy (Verified 06/23/18 15:58) sulfamethoxazole [From Bactrim] Allergy (Verified 06/23/18 15:58) trimethoprim [From Bactrim] Allergy (Verified 06/23/18 15:58) CI PIGMENT BLUE 63 Allergy (Uncoded 06/23/18 15:58) - Review of Systems ROS: No change since H&P - Vital Signs and I&O's Vital Signs: Temperature 98.2 F Pulse Rate [Left Brachial] 59 Pulse Rate 61 Respiratory Rate 20 Blood Pressure [Left Arm] 142/61 Blood Pressure [Right Arm] 150/67 Blood Pressure 153/71 O2 Sat by Pulse Oximetry 97 Intake and Output: Intake & Output 06/22/18 06/23/18 06/24/18 06/25/18 11:59 11:59 11:59 11:59 Intake Total 80 / 80 770 / 770 Output Total 450 / 450 600 / 600 Balance -370 / -370 170 / 170 - Physical Exam Oriented: Normal Eyes: Normal Ear: Normal Nose: Normal Throat: Normal Respiratory: Diminished Cardiovascular: Normal. negative: S3, S4, Murmur : Normal Auscultation: Bowel Sounds: Normal Palpation: Normal Tenderness: Normal Skin: Wound (SCALP HEMATOMA ), Bruising Musculoskeletal: Normal Psychiatric: Normal Mood Description: Calm Affect: Normal Speech Pattern: Clear - Laboratory and Diagnostics Result Diagrams: 06/24/18 04:11 06/24/18 04:11 Labs: Laboratory WBC 8.0 X10^3/uL (3.6-10.0) 06/24/18 04:11 RBC 3.49 X10^6/uL (3.5-5.4) L 06/24/18 04:11 Hgb 10.4 g/dL (12.0-16.0) L 06/24/18 04:11 Hct 31.6 % (36.0-47.0) L 06/24/18 04:11 MCV 90.5 fL (80.0-100.0) 06/24/18 04:11 MCH 29.9 pg (27.0-34.0) 06/24/18 04:11 MCHC 33.0 g/dL (33.0-35.0) 06/24/18 04:11 RDW 14.5 % (11.6-16.5) 06/24/18 04:11 Plt Count 232 X10^3/uL (150.0-450.0) 06/24/18 04:11 MPV 8.9 fL (7.4-11.0) 06/24/18 04:11 Neut % (Auto) 57.4 % (42.0-75.0) 06/24/18 04:11 Lymph % (Auto) 31.6 % (21.0-51.0) 06/24/18 04:11 Geary % (Auto) 6.6 % (0.0-13.0) 06/24/18 04:11 Eos % (Auto) 3.9 % (0.9-2.9) H 06/24/18 04:11 Baso % (Auto) 0.5 % (0.2-1.0) 06/24/18 04:11 Neut # (Auto) 4.6 x10^3/uL (2.2-4.8) 06/24/18 04:11 Lymph # (Auto) 2.5 X10^3/uL (1.3-2.9) 06/24/18 04:11 Geary # (Auto) 0.5 x10^3/uL (0.3-0.8) 06/24/18 04:11 Eos # (Auto) 0.3 x10^3/uL (0.0-0.2) H 06/24/18 04:11 Baso # (Auto) 0.0 X10^3/uL (0.0-0.1) 06/24/18 04:11 Absolute Nucleated RBC 0.0 /100WBC 06/24/18 04:11 INR Target Range - 06/23/18 16:25 INR 1.00 (0.8-1.3) 06/23/18 16:25 APTT 28.1 SECONDS (22.9-36.5) 06/23/18 16:25 PTT Comment - 06/23/18 16:25 Sodium 143 mmol/L (136-145) 06/24/18 04:11 Corrected Sodium 144 mmol/L (136-145) 06/24/18 04:11 Potassium 3.9 mmol/L (3.5-5.1) 06/24/18 04:11 Chloride 106 mmol/L (98-107) 06/24/18 04:11 Carbon Dioxide 27.6 mmol/L (21-32) 06/24/18 04:11 BUN 28 mg/dL (7-18) H 06/24/18 04:11 Creatinine 1.33 mg/dL (0.55-1.02) H 06/24/18 04:11 Est GFR (MDRD) Af Amer 49 (>60) L 06/24/18 04:11 Est GFR (MDRD) Non-Af 41 (>60) L 06/24/18 04:11 Glucose 147 mg/dL (65-99) H 06/24/18 04:11 POC Glucose (mg/dL) 115 mg/dL (65-99) H 06/24/18 20:51 Calcium 8.6 mg/dL (8.5-10.1) 06/24/18 04:11 Corrected Calcium 9.3 mg/dL (8.5-10.1) 06/24/18 04:11 Total Bilirubin 0.20 mg/dL (0.2-1.0) 06/24/18 04:11 AST 15 Units/L (15-37) 06/24/18 04:11 ALT 17 Units/L (12-78) 06/24/18 04:11 Alkaline Phosphatase 101 Units/L (46-116) 06/24/18 04:11 Creatine Kinase 44 Units/L (26-192) 06/24/18 19:11 CK-MB (CK-2) < 1.0 ng/mL (0-4.0) 06/24/18 19:11 CK/CKMB % Calc 2.3 % (<4) 06/24/18 19:11 Troponin I < 0.02 ng/mL (0-1.5) 06/24/18 19:11 Total Protein 6.7 g/dL (6.4-8.2) 06/24/18 04:11 Albumin 3.1 g/dL (3.4-5.0) L 06/24/18 04:11 Globulin 3.6 g/dL (2.5-4.5) 06/24/18 04:11 Albumin/Globulin Ratio 0.9 Ratio (1.1-2.1) L 06/24/18 04:11 - Plan (1) Dehydration Status: Acute Plan: 1/2 NS AT 80ML/HR, CONTINUE TO MONITOR (2) Hematoma of occipital surface of head Status: Acute Qualifiers: Encounter type: initial encounter Qualified Code(s): S00.83XA - Contusion of other part of head, initial encounter Plan: WOUND CARE, CONTINUE TO MONITOR (3) Frequent falls Status: Acute (4) Dizziness Status: Acute Plan: OBTAIN SERIAL CARDIAC ENZYMES AND EKG, TELEMETRY, CONTINUE TO MONITOR.
[2018-06-25 05:05] LABS: BASOPHILS % (AUTO) 0.6 % (0.2-1.0); EOSINOPHILS # (AUTO) 0.4 x10^3/uL (0.0-0.2); EOSINOPHILS % (AUTO) 4.6 % (0.9-2.9); HEMATOCRIT 30.1 % (36.0-47.0); HEMOGLOBIN 10.1 g/dL (12.0-16.0); LYMPHOCYTES # (AUTO) 2.8 X10^3/uL (1.3-2.9); LYMPHOCYTES % (AUTO) 36.5 % (21.0-51.0); MEAN CORPUSCULAR HGB CONC 33.6 g/dL (33.0-35.0); MEAN CORPUSCULAR VOLUME 89.3 fL (80.0-100.0); MEAN PLATELET VOLUME 9.1 fL (7.4-11.0); MONOCYTES # (AUTO) 0.5 x10^3/uL (0.3-0.8); MONOCYTES % (AUTO) 6.3 % (0.0-13.0); PLATELET COUNT 204 X10^3/uL (150.0-450.0); RED BLOOD COUNT 3.37 X10^6/uL (3.5-5.4); RED CELL DISTRIBUTION WIDTH 14.7 % (11.6-16.5); WHITE BLOOD COUNT 7.7 X10^3/uL (3.6-10.0)
[2018-06-25 05:14] LABS: ALBUMIN 2.8 g/dL (3.4-5.0); CALCIUM 8.4 mg/dL (8.5-10.1); CARBON DIOXIDE 28.2 mmol/L (21-32); COR CA(FOR HYPOALB) 9.4 mg/dL (8.5-10.1); CREATININE 1.15 mg/dL (0.55-1.02); TOTAL PROTEIN 6.2 g/dL (6.4-8.2)
[2018-06-25] MEDS ORDERED: NS 1/2 1000 ML IV 1,000 ML ONE (05:28)
[2018-06-25] MEDS: NS 1/2 1000 ML IV 1,000 ML IV SCH ×2 (05:47→12:18)
[2018-06-25] MEDS: NORVASC TAB 5 MG PO SCH (09:04)
[2018-06-25] MEDS: SYNTHROID 50 mcg TAB PO SCH (09:04)
[2018-06-25] MEDS: VITAMIN D3 PO SCH (09:04)
[2018-06-25] MEDS: CLARITIN PO SCH (09:04)
[2018-06-25] MEDS: COZAAR PO SCH (09:04)
[2018-06-25] MEDS: COLACE CAP 100 MG PO SCH (09:04)
[2018-06-25] MEDS: TAB-A-VITE PO SCH (09:04)
--- NOTE | 2018-06-25 11:28 | CT ---
HISTORY: Follow-up status post fall to rule out bleed. Study: CT brain without contrast Comparison: CT head dated June 23, 2018. Technique: Multiple axial images of the brain were obtained from the skull base to the vertex without administration of IV contrast. Dose reduction techniques including Automated Exposure Control (AEC) and adjustment of mA and kV were utilized. Findings: Age-related cortical atrophy and chronic small vessel ischemic changes. Remote left temporal craniotomy changes. No acute intraparenchymal hemorrhage or mass can be identified. No extra-axial fluid collections are seen. No alteration in the attenuation of the brain parenchyma can be identified to suggest acute or subacute ischemic change. The ventricular system is symmetric and nondilated. Remaining osseous structures appear intact. Soft tissue swelling overlying the posterior right occiput. IMPRESSION: No acute intracranial pathology. Reported By:
[2018-06-25 12:17] VITALS: BP 142/56
== END 2018-06-25 14:00 | disposition home health service (06) ==
LOC: ER 15:56 → MED/SURG 15:56
PROVIDERS: ADMIT Internal Medicine; ATTEND Internal Medicine
DX: E86.0 Dehydration; R26.89 Other abnormalities of gait and mobility; R51 Headache; E78.2 Mixed hyperlipidemia; Z91.81 History of falling; R42 Dizziness and giddiness; I10 Essential (primary) hypertension; R79.89 Other specified abnormal findings of blood chemistry; I25.10 Atherosclerotic heart disease of native coronary artery without angina pectoris; Z79.899 Other long term (current) drug therapy; Y92.89 Other specified places as the place of occurrence of the external cause; S00.03XA Contusion of scalp, initial encounter; W18.39XA Other fall on same level, initial encounter; R29.6 Repeated falls
CPT/HCPCS: 36415; 70450; 80053; 82550; 82553; 84484; 85025; 85610; 85730; 93005; 96365; 96367; 96372; 97162; 97166; 97535; 99284; A4216; G0378; J1815

== ENCOUNTER 2019-04-20 13:03 | Observation (INO) ==
--- NOTE | 2019-04-20 13:49 | DR.AMS ---
HPI Time Seen Time Seen by Provider: 04/20/19 13:43 PCP Primary Care Physician: DOUGLAS HUNTER HPI Comment HPI Comment: PATIENT IS 83YR OLD FEMALE HERE IN ER WITH AMS AND LOW BLOOD PRESSURE. SHE IS ALSO FALLING A LOT. HAVE HAD BRAIN BLEED PREVIOUSLY. PATIENT HERE VIA EMS AND NOT ANSWERING QUESTIONS AND RELATIVES ARE NOT YET HERE. Complaint Cheif Complaint Doctors Comments: FALLING, WEAK AND HAVE LOW BP AND AMS. Chief Complaint:: " LOW B/P WEAK, AND FALLING".. Reviewed Nurses Notes Reviewed: Yes Source History Provided: Parent Mode of Arrival Mode of Arrival: Stretcher Timing Onset of Chief Complaint: 04/20/19 Came On: Suddenly Symptoms: Unchanged Duration Duration: Constant Duration: Hours Quality Quality: Decreased Alertness and Change in Behavior Severity Severity: Moderate Context Recent: None History Of: CVA and Diabetes Associated Signs and Symptoms Associated Signs and Symptoms: Generalized Weakness, Change in Behavior and Confusion Other History Other History: DM, HTN, CAD. PMH PMH Past Medical History: Yes Past Medical History: Anemia, Arthritis, Coronary Artery Disease, CVA, Depression, Diabetes, Dyslipidemia, Headaches, Hypertension, Kidney Stones, [place], Renal Disease and Seizures Past Surgical History: Yes Surgical History: Angioplasty/Stents, CABG/Valve Surgery, Hysterectomy and Ortho Surgery Family History History of Family Medical Conditions: Yes Family Medical History: Diabetes Mellitus, Cancer, [place], Coronary Artery Disease, Heart Failure and Hypertension Social History Does patient currently use any type of tobacco product: No Have you used tobacco products in the last 12 months: No Type of Tobacco Use: None Does any household member use tobacco: No Alcohol Use: None Do you use any recreational Drugs:: No Lives With: Family Lives Where: Home infectious screening In the last 2 months have you had wt loss of >10#?: NO Have you had fever, night sweats or hemotysis?: No Have you traveled outside the country in the last 6 months?: No Isolation: Standard ROS Review of Systems Constitutional: See HPI, Weakness and Fatigue; negative Fever Eyes: No Symptoms Reported and See HPI ENTM: No Symptoms Reported and See HPI; negative Ear Pain, Nose Discharge, Nose Congestion and Throat Pain Respiratoy: See HPI, Moist Cough, Short of Breath and Wheezing Cardiovascular: No Symptoms Reported and See HPI; negative Chest Pain and Palpitations Gastrointestinal/Abdominal: No Symptoms Reported, See HPI and Abdominal Pain; n egative Diarrhea, Nausea and Vomiting Genitourinary: No Symptoms Reported and See HPI Neurological: See HPI, Headache and Weakness Musculoskeletal: No Symptoms Reported and See HPI Integumentary: No Symptoms Reported, See HPI, Rash and Juandice; negative Change in Color Hematologic/Lymphatic: See HPI, Easy Bleeding and Easy Bruising Endocrine: See HPI and Decreased Appetite Psychiatric: See HPI All Other Systems: Reviewed and Negative Unable to Obtain Due To: Altered mental status PE Vitals Vital Signs: Pulse Resp BP BP BP Pulse Ox 04/20/19 15:46 186/86 04/20/19 13:08 63 22 169/76 100 06/25/18 12:00 142/56 142/56 06/24/18 04:00 142/61 General Limitations: Altered Mental Status General Appearance: Alert and In No Apparent Distress Head Head Exam: Normal Inspection and Atraumatic Head Exam Physical: Other (NONE NOTED.) Eyes Eye exam: Normal Appearance and PERRL; negative Scleral Icterus and Conjunctival Injection Pupils: Regular, Round: Bilateral and Reactive: Bilateral ENT ENT Exam: Normal Exam, Normal Oropharynx, Normal External Ear Exam and TM's Normal Bilaterally External Ear Exam: Normal External Inspection; negative Mastoid Tenderness TM/Canal Exam: Bilateral: Normal Nose Exam: Normal Nose Exam Mouth Exam: Normal Inspection Throat Exam: Tonsillar Erythema; negative Tonsillomegaly and Tonsillar Exudate Neck Neck Exam: Normal Inspection and Trachea Midline; negative Tenderness and Lymphadenopathy Chest Chest Inspection: Normal Inspection and Symmetric Chest Wall Rise; negative Tenderness Respiratory Respiratory Exam: Normal Lung Sounds Bilat; negative Accessory Muscle Use, Chest Wall Tenderness and Respiratory Distress Respiratory Exam: Bilateral: Rhonchi and Lower: Rhonchi Cardiovascular Cardiovascular Exam: Regular Rate, Normal Rhythm and Normal Heart Sounds; negative Systolic Murmur and Diastolic Murmur Abdominal Exam Abdominal Exam: Normal Inspection, Normal Bowel Sounds and Soft; negative Tenderness Extremities Extremities Exam: Normal Inspection Back Back Exam: Normal Inspection Neurological Neurological Exam: Alert; negative Motor Sensory Deficit Patient Oriented To: Person; negative Place and Time Speech: Fluid Speech Cranial Nerve Exam: Gag reflex (XI): Normal Upper Motor Neuron Exam: Babinski Sign: Normal Psychological Psychiatric Exam: Flat Affect Skin Skin Exam: Warm, Dry, Intact and Normal Color MDM Differential Diagnosis Metabolic: Dehydration, Hypercalcemia, Hypernatremia, Hypoglycemia and Hyponatremia Structural: CVA and Mass Lesion Infectious: Sepsis COURSE Treatment Treatment: SEE ORDERS. Education/Counseling Education/Counseling: Family Educated On: Diagnosis ROR Labs Reviewed Laboratory Results Reviewed?: Yes Result Diagrams: 04/22/19 05:21 04/22/19 05:21 Laboratory: 04/20/19 13:57 Blood Blood Culture - Final 04/20/19 14:05 Blood Blood Culture - Final 04/20/19 15:45 Urine,Catheterized Urine Culture - Final WBC 5.7 X10^3/uL (3.6-10.0) 04/20/19 13:57 RBC 4.38 X10^6/uL (3.5-5.4) 04/20/19 13:57 Hgb 13.4 g/dL (12.0-16.0) 04/20/19 13:57 Hct 40.3 % (36.0-47.0) 04/20/19 13:57 MCV 92.0 fL (80.0-100.0) 04/20/19 13:57 MCH 30.5 pg (27.0-34.0) 04/20/19 13:57 MCHC 33.1 g/dL (33.0-35.0) 04/20/19 13:57 RDW 13.5 % (11.6-16.5) 04/20/19 13:57 Plt Count 197 X10^3/uL (150.0-450.0) 04/20/19 13:57 MPV 8.7 fL (7.4-11.0) 04/20/19 13:57 Neut % (Auto) 49.4 % (42.0-75.0) 04/20/19 13:57 Lymph % (Auto) 39.7 % (21.0-51.0) 04/20/19 13:57 [place] % (Auto) 6.7 % (0.0-13.0) 04/20/19 13:57 Eos % (Auto) 3.5 % (0.9-2.9) H 04/20/19 13:57 Baso % (Auto) 0.7 % (0.2-1.0) 04/20/19 13:57 Neut # (Auto) 2.8 x10^3/uL (2.2-4.8) 04/20/19 13:57 Lymph # (Auto) 2.3 X10^3/uL (1.3-2.9) 04/20/19 13:57 [place] # (Auto) 0.4 x10^3/uL (0.3-0.8) 04/20/19 13:57 Eos # (Auto) 0.2 x10^3/uL (0.0-0.2) 04/20/19 13:57 Baso # (Auto) 0.0 X10^3/uL (0.0-0.1) 04/20/19 13:57 Absolute Nucleated RBC 0.1 /100WBC 04/20/19 13:57 Sodium 142 mmol/L (136-145) 04/20/19 13:57 Corrected Sodium 143 mmol/L (136-145) 04/20/19 13:57 Potassium 4.2 mmol/L (3.5-5.1) 04/20/19 13:57 Chloride 104 mmol/L (98-107) 04/20/19 13:57 Carbon Dioxide 32.0 mmol/L (21-32) 04/20/19 13:57 BUN 23 mg/dL (7-18) H 04/20/19 13:57 Creatinine 1.41 mg/dL (0.55-1.02) H 04/20/19 13:57 Est GFR (MDRD) Af Amer 46 (>60) L 04/20/19 13:57 Est GFR (MDRD) Non-Af 38 (>60) L 04/20/19 13:57 Glucose 136 mg/dL (65-99) H 04/20/19 13:57 Lactic Acid 0.5 mmol/L (0.4-2.0) 04/20/19 13:57 Calcium 8.9 mg/dL (8.5-10.1) 04/20/19 13:57 Corrected Calcium TNP 04/20/19 13:57 Total Bilirubin 0.30 mg/dL (0.2-1.0) 04/20/19 13:57 AST 21 Units/L (15-37) 04/20/19 13:57 ALT 21 Units/L (12-78) 04/20/19 13:57 Alkaline Phosphatase 108 Units/L (46-116) 04/20/19 13:57 Creatine Kinase 40 Units/L (26-192) 04/20/19 13:57 CK-MB (CK-2) < 1.0 ng/mL (0-4.0) 04/20/19 13:57 CK/CKMB % Calc 2.5 % (<4) 04/20/19 13:57 Troponin I < 0.02 ng/mL (0-1.5) 04/20/19 13:57 Total Protein 7.4 g/dL (6.4-8.2) 04/20/19 13:57 Albumin 3.6 g/dL (3.4-5.0) 04/20/19 13:57 Globulin 3.8 g/dL (2.5-4.5) 04/20/19 13:57 Albumin/Globulin Ratio 0.9 Ratio (1.1-2.1) L 04/20/19 13:57 Specimen Type Catherized urine 04/20/19 15:45 Urine Color Yellow (YELLOW) 04/20/19 15:45 Urine Appearance Slightly hazy (CLEAR) 04/20/19 15:45 Urine pH 7.0 (5.0 - 8.0) 04/20/19 15:45 Ur Specific [place] 1.015 (1.000-1.030) 04/20/19 15:45 Urine Protein Negative (NEGATIVE) 04/20/19 15:45 Urine Glucose (UA) 4+ (NEGATIVE) 04/20/19 15:45 Urine Ketones Negative (NEGATIVE) 04/20/19 15:45 Urine Occult Blood 1+ (NEGATIVE) 04/20/19 15:45 Urine Nitrite Negative (NEGATIVE) 04/20/19 15:45 Urine Bilirubin Negative (NEGATIVE) 04/20/19 15:45 Urine Urobilinogen Normal (NORMAL) 04/20/19 15:45 Ur Leukocyte Esterase 1+ (NEGATIVE) 04/20/19 15:45 Urine RBC 3-5 /HPF (0-3) A 04/20/19 15:45 Urine WBC 10-20 /HPF (0-5) A 04/20/19 15:45 Ur Squamous Epith Cells Few /HPF (NEGATIVE) 04/20/19 15:45 Urine Bacteria 2+ /HPF (NEGATIVE) 04/20/19 15:45 Ur Culture Indicated? Yes/culture set up 04/20/19 15:45 XRAY XRAY Interpreted by: Radiologist XRAY Findings: REPORT NOTED AND DISCUSSED WITH PATIENT AND FAMILY. Opioid Opioid Risk Tool Age (Donnell box if 16-45): No History of Preadolescent Sexual Abuse: No Total: 0 Total Score Risk Category: Low Risk Copyright: Smooth MADDEN predicting aberrant behaviors Diagnosis Discharge Problem: Acute dehydration AMS (altered mental status) Qualifiers: Altered mental status type: transient alteration of awareness Qualified Cod e(s): R40.4 - Transient alteration of awareness Hypotension Qualifiers: Hypotension type: unspecified hypotension type Qualified Code(s): I95.9 - Hypotension, unspecified UTI (urinary tract infection) Qualifiers: Urinary tract infection type: site unspecified Hematuria presence: with hematuria Qualified Code(s): N39.0 - Urinary tract infection, site not specified Instructions Instructions: Dehydration, Adult, [id number] Type 2 Diabetes Mellitus, Self Care, Adult, [id number] Hypertension, [id number] Dizziness, [id number] Fall Prevention in the Home
[2019-04-20 14:15] LABS: BASOPHILS % (AUTO) 0.7 % (0.2-1.0); EOSINOPHILS # (AUTO) 0.2 x10^3/uL (0.0-0.2); EOSINOPHILS % (AUTO) 3.5 % (0.9-2.9); HEMATOCRIT 40.3 % (36.0-47.0); HEMOGLOBIN 13.4 g/dL (12.0-16.0); LYMPHOCYTES # (AUTO) 2.3 X10^3/uL (1.3-2.9); LYMPHOCYTES % (AUTO) 39.7 % (21.0-51.0); MEAN CORPUSCULAR HEMOGLOBIN 30.5 pg (27.0-34.0); MEAN CORPUSCULAR HGB CONC 33.1 g/dL (33.0-35.0); MEAN PLATELET VOLUME 8.7 fL (7.4-11.0); MONOCYTES # (AUTO) 0.4 x10^3/uL (0.3-0.8); MONOCYTES % (AUTO) 6.7 % (0.0-13.0); NEUTROPHILS # (AUTO) 2.8 x10^3/uL (2.2-4.8); NEUTROPHILS % (AUTO) 49.4 % (42.0-75.0); PLATELET COUNT 197 X10^3/uL (150.0-450.0); RED BLOOD COUNT 4.38 X10^6/uL (3.5-5.4); RED CELL DISTRIBUTION WIDTH 13.5 % (11.6-16.5); WHITE BLOOD COUNT 5.7 X10^3/uL (3.6-10.0)
[2019-04-20 14:29] LABS: LACTIC ACID 0.5 mmol/L (0.4-2.0)
[2019-04-20 14:34] LABS: BLOOD UREA NITROGEN 23 mg/dL (7-18); CALCIUM 8.9 mg/dL (8.5-10.1); CHLORIDE 104 mmol/L (98-107); COR NA(FOR HYPERGLY) 143 mmol/L (136-145); CREATININE 1.41 mg/dL (0.55-1.02); SODIUM 142 mmol/L (136-145); TROPONIN I < 0.02 ng/mL (0-1.5); eGFR NON BLACK RACES 38 (>60)
--- NOTE | 2019-04-20 14:34 | RAD ---
HISTORYHypotensiveSTUDYPortable AP chestCOMPARISONJuly 2018FINDINGSThe heart size is normal status post CABG. Lungs are grossly clear. Partially visualized is a right shoulder prosthesis. There is no edema or effusion.IMPRESSIONNo evidence for acute cardiopulmonary diseaseElectronically signed by: NORMA OSHEA (Apr 20, 2019 14:32:52)
--- NOTE | 2019-04-20 14:38 | CT ---
HISTORY:Low blood pressure, drowsinessStudy: CT brain without contrastComparison:07/15/2018Technique:Multiple axial images of the brain were obtained without administration of IV contrast. Dose reduction techniques including Automated Exposure Control (AEC) and adjustment of mA and kV were utilized.Findings:There is cerebral volume loss and nonspecific white matter hypoattenuation suggestive of chronic microvascular ischemic changes with scattered hypodensities in the bilateral basal ganglia suggesting old lacunar infarcts.There is calcified plaque within the carotid and vertebral arteries. No evidence of acute hemorrhage, midline shift, mass effect or abnormal extra-axial fluid collection. The ventricular system is symmetric and nondilated.There are postsurgical changes in the left parietal calvarium. The visualized paranasal sinuses are clear.IMPRESSION:1. Stable head CT as described.Electronically signed by: HEMA DORAN (Apr 20, 2019 14:36:49)
[2019-04-20 14:39] LABS: ALANINE AMINOTRANSFERASE 21 Units/L (12-78); ALBUMIN 3.6 g/dL (3.4-5.0); ALKALINE PHOSPHATASE 108 Units/L (46-116); ASPARTATE AMINO TRANSFERASE 21 Units/L (15-37); CKMB % 2.5 % (<4); CREATINE KINASE 40 Units/L (26-192); CREATINE KINASE MB < 1.0 ng/mL (0-4.0); TOTAL PROTEIN 7.4 g/dL (6.4-8.2)
[2019-04-20] MEDS ORDERED: NS 1000 ML 1,000 ML ONE (15:31)
[2019-04-20 15:54] LABS: BILIRUBIN,URINE NEGATIVE (NEGATIVE); BLOOD/HEMOGLOBIN,URINE 1+ (NEGATIVE); GLUCOSE, URINE 4+ (NEGATIVE); KETONES,URINE NEGATIVE (NEGATIVE); LEUKOCYTE ESTERASE ,URINE 1+ (NEGATIVE); NITRITES,URINE NEGATIVE (NEGATIVE); PROTEIN,URINE NEGATIVE (NEGATIVE); UROBILINOGEN,URINE NORMAL (NORMAL)
[2019-04-20 16:05] LABS: APPEARANCE,URINE SLIGHTLY HAZY (CLEAR); BACTERIA,URINE 2+ /HPF (NEGATIVE); COLOR,URINE YELLOW (YELLOW); SQUAMOUS EPITHELIAL CELL,UR FEW /HPF (NEGATIVE)
[2019-04-20] MEDS ORDERED: HumuLIN R SUBCUT PRN (16:58)
[2019-04-20] MEDS: NS 1000 ML 1,000 ML IV SCH (17:01)
[2019-04-20] MEDS ORDERED: ROCEPHIN VIAL 1 GRAM ONE (17:03)
[2019-04-20] MEDS ORDERED: NS 100 ML IV + SPIKE MINIBAG* 100 ML IV ONE (17:03)
[2019-04-20 17:17] VITALS: BMI 24.0
[2019-04-20] MEDS: ROCEPHIN VIAL 1 GRAM 1 G in NS 100 ML IV + SPIKE MINIBAG* 100 ML IV SCH (17:29)
[2019-04-20] MEDS: SNACK - Diabetic Appropriate PO SCH (20:02)
[2019-04-20 23:45] LABS: CKMB % 2.9 % (<4); CREATINE KINASE 35 Units/L (26-192); CREATINE KINASE MB < 1.0 ng/mL (0-4.0); TROPONIN I < 0.02 ng/mL (0-1.5)
[2019-04-21 06:09] LABS: BASOPHILS % (AUTO) 0.5 % (0.2-1.0); EOSINOPHILS # (AUTO) 0.2 x10^3/uL (0.0-0.2); EOSINOPHILS % (AUTO) 3.2 % (0.9-2.9); HEMATOCRIT 37.8 % (36.0-47.0); HEMOGLOBIN 12.9 g/dL (12.0-16.0); LYMPHOCYTES # (AUTO) 2.5 X10^3/uL (1.3-2.9); LYMPHOCYTES % (AUTO) 37.8 % (21.0-51.0); MEAN CORPUSCULAR HEMOGLOBIN 31.1 pg (27.0-34.0); MEAN CORPUSCULAR HGB CONC 34.1 g/dL (33.0-35.0); MEAN CORPUSCULAR VOLUME 91.2 fL (80.0-100.0); MEAN PLATELET VOLUME 8.7 fL (7.4-11.0); MONOCYTES # (AUTO) 0.5 x10^3/uL (0.3-0.8); MONOCYTES % (AUTO) 7.3 % (0.0-13.0); NEUTROPHILS # (AUTO) 3.4 x10^3/uL (2.2-4.8); NEUTROPHILS % (AUTO) 51.2 % (42.0-75.0); PLATELET COUNT 174 X10^3/uL (150.0-450.0); RED BLOOD COUNT 4.14 X10^6/uL (3.5-5.4); RED CELL DISTRIBUTION WIDTH 13.8 % (11.6-16.5); WHITE BLOOD COUNT 6.7 X10^3/uL (3.6-10.0)
[2019-04-21] MEDS: NS 1000 ML 1,000 ML IV SCH ×3 (06:20→22:19)
[2019-04-21 07:18] LABS: ALANINE AMINOTRANSFERASE 25 Units/L (12-78); ALBUMIN 3.2 g/dL (3.4-5.0); ALKALINE PHOSPHATASE 100 Units/L (46-116); ASPARTATE AMINO TRANSFERASE 28 Units/L (15-37); BLOOD UREA NITROGEN 21 mg/dL (7-18); CALCIUM 8.4 mg/dL (8.5-10.1); CARBON DIOXIDE 28.4 mmol/L (21-32); CHLORIDE 106 mmol/L (98-107); CKMB % 2.5 % (<4); CREATINE KINASE 40 Units/L (26-192); CREATINE KINASE MB < 1.0 ng/mL (0-4.0); CREATININE 1.31 mg/dL (0.55-1.02); SODIUM 142 mmol/L (136-145); TOTAL PROTEIN 6.7 g/dL (6.4-8.2); TROPONIN I < 0.02 ng/mL (0-1.5); eGFR NON BLACK RACES 41 (>60)
[2019-04-21] MEDS: ROCEPHIN VIAL 1 GRAM 1 G in NS 100 ML IV + SPIKE MINIBAG* 100 ML IV SCH (08:37)
[2019-04-21] MEDS: LOVENOX INJ 40 MG SYR SC SCH (09:49)
[2019-04-21] MEDS ORDERED: BIOTIN 5000 MCG PO SCH (10:45)
--- NOTE | 2019-04-21 10:55 | DR.H&P ---
H&P - History & Physical for Day of: H&P Date: 04/20/19 - Chief Complaint Chief Complaint: WEAKNESS, LOW BLOOD PRESSURE, FALLS - History of Present Illness History of Present Illness: IS A 83 YEAR OLD PATIENT OF OURS WHO PRESENTED TO THE ER WITH COMPLAINTS OF WEAKNESS, LOW BLOOD PRESSURE, AND FALLS AT HOME. SHE HAS A HISTORY OF A PREVIOUS BRAIN BLEED, ANEMIA, CAD, CVA, DM, DYSLIPIDEMIA, HTN, [place], RENAL DISEASE, AND SEIZURE DISORDER. ON ARRIVAL, VITALS WERE 98.7-63-22-100%-169/76. LABS WERE OBTAINED. ABNORMAL LAB VALUES INCLUDE THE FOLLOWING: BUN 23, CREATININE 1.41, GLUCOSE 136. CARDIAC ENZYMES WITHIN NORMAL LIMITS. URINALYSIS REVEALED: WBC 10-20, RBC 3-5, BACTERIA 2+, LEUKOCYTES 1+. URINE CULTURE AND BLOOD CULTURES OBTAINED. A BRAIN CT WAS OBTAINED AND WAS STABLE. A CHEST XRAY WAS OBTAINED AND REVEALED: NO EVIDENCE FOR ACUTE CARDIOPULMONARY DISEASE. EKG REVEALED: SINUS RHYTHM WITH HR 57. SHE WAS STARTED ON NORMAL SALINE AND GIVEN ROCEPHIN 1G IV X 1 DOSE IN THE ER. SHE WAS ADMITTED FOR FURTHER EVALUATION AND TREATMENT OF AMS, HYPOTENSION, DEHYDRATION, AND URINARY TRACT INFECTION. WE STARTED NORMAL SALINE AT 75ML/HR, ROCEPHIN 1G IV DAILY, HUMULIN R SLIDING SCALE, AND HOME MEDICATIONS WERE RESUMED. OTHERWISE, WE PLAN TO FOLLOW UP WITH AM LABS AND CONTINUE TO MONITOR. - Past Medical History Past Medical History: [place], Coronary Artery Disease, Hypertension, Dyslipidemia, Diabetes, Renal Disease, Depression, Anemia, CVA, Seizures, Arthritis, Kidney Stones, Headaches Additional Medical History: Paroxysmal Atrial Fibrillation, TIA, Bronchitis, Pancreatitis, Urinary Tract Infections, Muscle Weakness, Back Pain, Previous Blood Transfusion, Skin Cancer Face - Past Surgical History Surgical History: Angioplasty/Stents, CABG/Valve Surgery, Hysterectomy, Ortho Surgery Additional Surgical History: Hernia Repair, Cataract Removal, Left Sided SHEYLA Holes S/P Subdural Hematoma Evacuation (09/29/13), Skin Cancer Removal - Family History Family Medical History: Diabetes Mellitus, Cancer, [place], Coronary Artery Disease, Heart Failure, Hypertension - Social History Does patient currently use any type of tobacco product: No Have you used tobacco products in the last 12 months: No Type of Tobacco Use: None Does any household member use tobacco: No Alcohol Use: None Drug Use: None - Medications Home Medications: atorvastatin [From Lipitor] Allergy (Verified 06/23/18 15:58) codeine Allergy (Verified 06/23/18 15:58) duloxetine [From Cymbalta] Allergy (Verified 06/23/18 15:58) sulfamethoxazole [From Bactrim] Allergy (Verified 06/23/18 15:58) trimethoprim [From Bactrim] Allergy (Verified 06/23/18 15:58) CI PIGMENT BLUE 63 Allergy (Uncoded 06/23/18 15:58) CONTINUE taking the following medications aspirin 325 mg PO DAILY 04/20/19 [History] clopidogrel [Plavix] 75 mg PO DAILY 04/20/19 [History] losartan [Cozaar] 100 mg PO HS 04/20/19 [History] amlodipine 5 mg PO BID 04/21/19 [History] canagliflozin [Invokana] 100 mg PO DAILY 04/21/19 [History] - Review of Systems Constitutional: See HPI, Weakness Eyes: No Symptoms Reported ENT: No Symptoms Reported Respiratory: No Symptoms Reported Cardiovascular: No Symptoms Reported Gastrointestinal: Abdominal Pain Genitourinary: No Symptoms Reported Musculoskeletal: No Symptoms Reported Skin: No Symptoms Reported Neurological: See HPI, Weakness, Confusion - Physical Exam Vital Signs: Temperature 98.1 F Pulse Rate [Right Brachial] 58 Pulse Rate 63 Respiratory Rate 18 Blood Pressure [Left Arm] 164/75 Blood Pressure [Right Arm] 132/61 Blood Pressure 186/86 O2 Sat by Pulse Oximetry 99 Oriented: Normal Eyes: Normal Ear: Normal Nose: Normal Throat: Normal Respiratory: Diminished Throughout Cardiovascular: Normal : Normal Auscultation: Bowel Sounds: Normal Palpation: Normal Tenderness: Suprapubic, Mild. negative: Rebound, Guarding, Rigidity Skin: Normal Musculoskeletal: Normal Psychiatric: Normal Mood Description: Calm Affect: Normal Speech Pattern: Clear - Assessment/Plan (1) Dehydration Status: Acute Plan: ADMIT, NORMAL SALINE AT 75ML/HR, CONTINUE TO MONITOR (2) Hypotension Qualifiers: Hypotension type: unspecified hypotension type Qualified Code(s): I95.9 - Hypotension, unspecified Status: Acute Plan: IV FLUIDS (3) Urinary tract infection Qualifiers: Urinary tract infection type: acute cystitis Hematuria presence: without hematuria Qualified Code(s): N30.00 - Acute cystitis without hematuria Status: Acute Plan: IV FLUIDS, ROCEPHIN 1G IV DAILY, CONTINUE TO MONITOR (4) AMS (altered mental status) Qualifiers: Altered mental status type: transient alteration of awareness Qualified Code(s): R40.4 - Transient alteration of awareness Status: Acute (5) Frequent falls Status: Acute - Allergies Allergies/Adverse Reactions: Allergies Allergy/AdvReac Type Severity Reaction Status Date / Time atorvastatin [From Lipitor] Allergy Verified 06/23/18 15:58 codeine Allergy Verified 06/23/18 15:58 duloxetine [From Cymbalta] Allergy Verified 06/23/18 15:58 sulfamethoxazole Allergy Verified 06/23/18 15:58 [From Bactrim] trimethoprim [From Bactrim] Allergy Verified 06/23/18 15:58 CI PIGMENT BLUE 63 Allergy Uncoded 06/23/18 15:58
[2019-04-21] MEDS ORDERED: ASPIRIN PO SCH (11:00)
[2019-04-21] MEDS ORDERED: PLAVIX PO SCH (11:00)
[2019-04-21] MEDS: COLACE CAP 100 MG PO SCH (12:31)
[2019-04-21] MEDS: SYNTHROID 50 mcg TAB PO SCH (12:31)
[2019-04-21] MEDS: NORVASC TAB 5 MG PO SCH ×2 (12:31→21:21)
[2019-04-21] MEDS: INVOKANA PO SCH (12:36)
[2019-04-21] MEDS ORDERED: EFFEXOR XR 150 MG CAP PO SCH (21:00)
[2019-04-21] MEDS ORDERED: CORDARONE TAB 200 MG PO SCH (21:00)
[2019-04-21] MEDS ORDERED: VALIUM PO SCH (21:00)
[2019-04-21] MEDS ORDERED: LIPITOR TAB 20 MG PO SCH (21:00)
[2019-04-21] MEDS ORDERED: COZAAR PO SCH (21:00)
[2019-04-21] MEDS: SNACK - Diabetic Appropriate PO SCH (21:00)
[2019-04-21] MEDS ORDERED: OXYBUTYNIN CHLORIDE ER PO SCH (21:00)
[2019-04-22 05:32] LABS: BASOPHILS % (AUTO) 0.4 % (0.2-1.0); EOSINOPHILS # (AUTO) 0.3 x10^3/uL (0.0-0.2); EOSINOPHILS % (AUTO) 3.5 % (0.9-2.9); HEMATOCRIT 37.4 % (36.0-47.0); HEMOGLOBIN 12.7 g/dL (12.0-16.0); LYMPHOCYTES # (AUTO) 2.8 X10^3/uL (1.3-2.9); LYMPHOCYTES % (AUTO) 37.9 % (21.0-51.0); MEAN CORPUSCULAR VOLUME 91.1 fL (80.0-100.0); MEAN PLATELET VOLUME 8.5 fL (7.4-11.0); MONOCYTES # (AUTO) 0.6 x10^3/uL (0.3-0.8); MONOCYTES % (AUTO) 7.8 % (0.0-13.0); NEUTROPHILS # (AUTO) 3.7 x10^3/uL (2.2-4.8); NEUTROPHILS % (AUTO) 50.4 % (42.0-75.0); PLATELET COUNT 175 X10^3/uL (150.0-450.0); RED CELL DISTRIBUTION WIDTH 13.5 % (11.6-16.5); WHITE BLOOD COUNT 7.3 X10^3/uL (3.6-10.0)
[2019-04-22 06:04] LABS: ALBUMIN 3.1 g/dL (3.4-5.0); CALCIUM 8.3 mg/dL (8.5-10.1); CARBON DIOXIDE 26.9 mmol/L (21-32); CREATININE 1.25 mg/dL (0.55-1.02); TOTAL PROTEIN 6.6 g/dL (6.4-8.2)
[2019-04-22] MEDS ORDERED: VITAMIN D3 PO SCH (09:00)
[2019-04-22] MEDS: COLACE CAP 100 MG PO SCH (09:36)
[2019-04-22] MEDS: ROCEPHIN VIAL 1 GRAM 1 G in NS 100 ML IV + SPIKE MINIBAG* 100 ML IV SCH (09:37)
[2019-04-22] MEDS: NORVASC TAB 5 MG PO SCH (09:38)
[2019-04-22] MEDS: LOVENOX INJ 40 MG SYR SC SCH (09:38)
[2019-04-22] MEDS: SYNTHROID 50 mcg TAB PO SCH (09:39)
[2019-04-22] MEDS: INVOKANA PO SCH (09:40)
[2019-04-22 12:25] VITALS: BP 166/79
== END 2019-04-22 13:20 | disposition home health service (06) ==
LOC: ER 13:03 → OBS 13:03
PROVIDERS: ADMIT Internal Medicine; ATTEND Internal Medicine
CPT/HCPCS: 36415; 70450; 71010; 71045; 80053; 81001; 82550; 82553; 83605; 84484; 85025; 87040; 87086; 93005; 94760; 96360; 96361; 96365; 96372; 96375; 97116; 97162; 99284; A4216; A4222; G0378; J0696; J1650; J7030; J7050